=== PATIENT | male | born 1950 ===

== ENCOUNTER 2019-12-24 09:47 | Inpatient (IN) | payer MEDICARE, BC ==
[2019-12-24] VITALS (8 sets, daily range): BP systolic 140–171; BP diastolic 63–84; BMI 35.4
[~2019-12-24] VITALS: Ht 188 cm; Wt 124.7 kg
[2019-12-24 11:00] LABS: BASOPHILS 0 % (0-2); EOSINOPHILS 0.2 % (0-7); HEMATOCRIT 38.1 % (42.0-54.0); HEMOGLOBIN 12.2 g/dL (13.5-17.5); IMMATURE GRANULOCYTES 0.4 % (0-5); LYMPHOCYTES 8.3 % (15-50); MCV 87.6 fL (80.0-100.0); MEAN PLATELET VOLUME 8.4 fL (7.4-10.4); MONOCYTES 7.3 % (2-11); NEUTROPHILS 83.8 % (40-80); PLATELET COUNT 125 10x3/uL (130-400); RBC 4.35 10x6/uL (4.20-6.10); RDW 15.4 % (11.5-14.5)
[2019-12-24 11:19] LABS: APTT 37.9 SECONDS (22.8-39.4); INR 1.05 (0.85-1.17); PROTIME 13.6 SECONDS (11.6-15.0)
[2019-12-24 11:28] LABS: CALC OSMOLALITY 285 mosm/kg (275-300); CALCIUM 8.5 mg/dL (8.5-10.1); CARBON DIOXIDE 25.8 mmol/L (21.0-32.0); CHLORIDE - SERUM 105 mmol/L (98-107); CREATININE - SERUM 1.2 mg/dL (0.6-1.3); GLUCOSE 124 mg/dL (74-106); POTASSIUM - SERUM 3.9 mmol/L (3.5-5.1); SODIUM 141 mmol/L (136-145); UREA NITROGEN 24 mg/dL (7-18); eGFR NON AFRICAN AMERICAN 63 mL/min (90-120)
[2019-12-24 11:48] LABS: ALBUMIN 2.9 g/dL (3.4-5.0); ALKALINE PHOSPHATASE 67 U/L (30-120); ALT (SGPT) 19 U/L (10-68); BILIRUBIN - TOTAL 0.68 mg/dL (0.2-1.3); CREATINE KINASE 1307 UL (21-232); PROTEIN - SERUM 6.2 g/dL (6.4-8.2)
[2019-12-24 11:49] LABS: TROPONIN-I 0.061 ng/mL (0.000-0.060)
[2019-12-24 12:55] LABS: C-REACTIVE PROTEIN 16.9 mg/dL (0.0-0.9)
[2019-12-24 13:34] LABS: ERYTHROCYTE SEDIMENTATION RATE 54 mm/hr (0-20)
[2019-12-24] MEDS ORDERED: SINGULAIR10 MG PO (15:17)
[2019-12-24] MEDS ORDERED: NOVOLIN 70/30 110 ML (15:17)
[2019-12-24] MEDS ORDERED: CARBIDOPA-LEVO1 EAC2 PO (15:19)
[2019-12-24] MEDS ORDERED: SINEMET 25-1001 EAC1 PO (15:19)
[2019-12-24] MEDS ORDERED: NORMODYNE / TR300 MG PO (15:20)
[2019-12-24] MEDS ORDERED: GLUCOPHAGE500 MG PO (15:20)
[2019-12-24] MEDS ORDERED: ZYRTEC10 MG PO (15:20)
[2019-12-24] MEDS ORDERED: LISINOPRIL10 MG PO (15:21)
[2019-12-24] MEDS ORDERED: METOPROLOL TART50 MG PO (15:21)
[2019-12-24] MEDS ORDERED: HYDRALAZINE HCL50 MG PO (15:21)
[2019-12-24] MEDS ORDERED: XANAX0.5 MG PO (15:22)
[2019-12-24] MEDS ORDERED: ZOLOFT100 MG PO (15:22)
[2019-12-24] MEDS ORDERED: ZESTRIL10 MG PO (15:23)
[2019-12-24] MEDS ORDERED: LIPITOR40 MG PO (15:23)
[2019-12-24 17:27] LABS: CKMB 5.8 U/L (0.0-3.6)
[2019-12-24 17:28] LABS: CREATINE KINASE 1424 UL (21-232)
[2019-12-24 17:29] LABS: TROPONIN-I 0.072 ng/mL (0.000-0.060)
[2019-12-24 18:40] LABS: BILIRUBIN NEGATIVE (NEGATIVE); KETONE LARGE mg/dL (NEGATIVE); NITRITE NEGATIVE (NEGATIVE); UROBILINOGEN NORMAL mg/dL (< 2)
[2019-12-24 18:41] LABS: BACTERIA MODERATE HPF (NONE SEEN); EPITHELIAL CELLS 0-5 /hpf (0-5); WHITE CELLS - URINE OCC HPF (0-1)
[2019-12-24] MEDS ORDERED: VIBRAMYCIN 100100 MG PO (20:48)
--- NOTE | 2019-12-24 21:37 | NUR ---
CALL FROM HOUSE SUPERVISORS ON DUTY SON/ELISSA. THEY HAVE BEEN EXTENSIVELY SPEAKING TO THE FAMILY OF 2138 WITH THE FAMILY NOW WANTING PATIENT AND HIS , WHO IS A PATIENT IN ER HOLD, BOTH MOVED TO [facility] NOW. ADMINISTRATION HAS SPOKEN TO FAMILY REGARDING [facility] MUST GIVE APPROVAL. CASEMANYVONNE WILL BE FOLLOWING UP IN AM. REQUEST FOR MD TO BE UPDATED ON SITUATION CALL TO ALMA TANNER, REPEATED ABOVE. SHE STATES SHE WILL HAVE DR WEST/CHUN RETURN CALL FOR INFORMATION. RETURN CALL FROM DR WEST. REPORTED ABOVE AND THAT ADMINISTRATION HAS BEEN ACTIVELY WORKING WITH THE FAMILY ON THEIR CONCERNS/ISSUES/REQUESTS. SHE IS NOW AWARE OF FAMILY REQUEST. WILL CONTINUE TO FOLLOW CURRENT PLAN OF CARE FOR PATIENT.
[2019-12-24 22:58] LABS: CKMB 5.6 U/L (0.0-3.6); CREATINE KINASE 1316 UL (21-232); TROPONIN-I 0.063 ng/mL (0.000-0.060)
[2019-12-25] MEDS ORDERED: MAG-OX 400 MG400 MG PO (00:16)
[2019-12-25] MEDS ORDERED: PEPCID AC20 MG PO (00:17)
[2019-12-25] MEDS ORDERED: TRIAMTERENE-HC1 EAC6 PO (00:18)
[2019-12-25 00:50] VITALS: BP 125/80
[2019-12-25 04:36] VITALS: BP 144/69
--- NOTE | 2019-12-25 06:08 | NUR ---
PT RESTING IN BED, DENIES CHEST PAIN/DISCOMFORT. NO NEEDS EXPRESSED. NO S/S OF DISTRESS OBSERVED. CALL LIGHT IN REACH. WILL CPOC.
[2019-12-25 06:38] LABS: BASOPHILS 0 % (0-2); EOSINOPHILS 0.2 % (0-7); HEMATOCRIT 37.9 % (42.0-54.0); HEMOGLOBIN 12.3 g/dL (13.5-17.5); IMMATURE GRANULOCYTES 0.2 % (0-5); LYMPHOCYTES 9.8 % (15-50); MCH 28.1 pg (26.0-34.0); MCHC 32.5 g/dL (31.0-37.0); MCV 86.7 fL (80.0-100.0); MEAN PLATELET VOLUME 8.4 fL (7.4-10.4); MONOCYTES 5.4 % (2-11); NEUTROPHILS 84.4 % (40-80); PLATELET COUNT 138 10x3/uL (130-400); RBC 4.37 10x6/uL (4.20-6.10); RDW 15.4 % (11.5-14.5); WBC 5.5 10x3/uL (4.8-10.8)
[2019-12-25 06:57] LABS: CALC OSMOLALITY 275 mosm/kg (275-300); CALCIUM 8.4 mg/dL (8.5-10.1); CARBON DIOXIDE 26.8 mmol/L (21.0-32.0); CHLORIDE - SERUM 104 mmol/L (98-107); CKMB 5.8 U/L (0.0-3.6); CREATININE - SERUM 1.2 mg/dL (0.6-1.3); GLUCOSE 141 mg/dL (74-106); POTASSIUM - SERUM 3.7 mmol/L (3.5-5.1); SODIUM 135 mmol/L (136-145); TROPONIN-I 0.042 ng/mL (0.000-0.060); UREA NITROGEN 25 mg/dL (7-18); eGFR NON AFRICAN AMERICAN 63 mL/min (90-120)
[2019-12-25 06:58] LABS: CREATINE KINASE 1043 UL (21-232)
--- NOTE | 2019-12-25 07:20 | NUR ---
RECIEVE REPORT. RESTING IN BED WITH EYES CLOSED. NO SIGNS OF DISTRESS. CONTINUE PLAN OF CARE AND SAFETY PRECAUTIONS.
[2019-12-25 09:03] VITALS: BP 167/88
[2019-12-25 10:52] VITALS: BP 105/69
--- NOTE | 2019-12-25 15:51 | MORECARE ---
CASE MANAGEMENT DISCHARGE SUMMARY PATIENT: DOMINIC PERALTA UNIT: [id number] ADM DATE: 12/24/19 AGE: 69 : 48 SEX: M ROOM/BED: D.2139 AUTHOR: AMEYA LINDSEY PHYSICIAN: REFERRING PHYSICIAN: LISSETTE MCCOLLUM MD DATE OF SERVICE: 12/25/19 Discharge Plan Patient Name: DOMINIC PERALTA [facility] [facility] 1950 Planned Disposition: Anticipated Discharge Date: Discharge Date: Expected LOS: Initial Reviewer: [email or web address] Initial Review Date: 12/24/2019 Generated: 12/25/19 4:50 pm Patient Name: DOMINIC PERALTA Page 04257 at 1551 All edits/amendments must be made on the electronic document DICTATION DATE: 12/25/19 155 CARD CUTTER HELPER: RODNEY 12/25/19 155 RPT#: [id number] DC DATE: STATUS: ADM IN [facility] [address] [place] [address] END OF REPORT
--- NOTE | 2019-12-25 18:00 | NUR ---
ALERT AND ORIENTED X4. SITTING UP IN BED WATCHING TV. NO CHANGE. DENIES ANY NEEDS. CONTINUE PLAN OF CARE AND SAFETY PRECAUTIONS.
--- NOTE | 2019-12-25 20:30 | NUR ---
PT IN BED, AAO X 3, RESP EVEN AND UNLABORED, NO DISTRESS NOTED, CL IN REACH,SR UP X 2.
[2019-12-25 21:17] VITALS: BP 175/80
[2019-12-26 03:47] VITALS: BP 183/67
[2019-12-26 05:32] LABS: BASOPHILS 0 % (0-2); EOSINOPHILS 0 % (0-7); HEMATOCRIT 37.1 % (42.0-54.0); HEMOGLOBIN 11.9 g/dL (13.5-17.5); IMMATURE GRANULOCYTES 0.3 % (0-5); LYMPHOCYTES 6.4 % (15-50); MCH 27.9 pg (26.0-34.0); MCHC 32.1 g/dL (31.0-37.0); MCV 86.9 fL (80.0-100.0); MEAN PLATELET VOLUME 8.5 fL (7.4-10.4); MONOCYTES 6.1 % (2-11); NEUTROPHILS 87.2 % (40-80); PLATELET COUNT 154 10x3/uL (130-400); RBC 4.27 10x6/uL (4.20-6.10); RDW 15.3 % (11.5-14.5); WBC 6.4 10x3/uL (4.8-10.8)
[2019-12-26 06:02] LABS: ALBUMIN 2.5 g/dL (3.4-5.0); ANION GAP 11.1 mmol/L (8-16); BILIRUBIN - TOTAL 0.52 mg/dL (0.2-1.3); CALCIUM 8.2 mg/dL (8.5-10.1); CARBON DIOXIDE 25.7 mmol/L (21.0-32.0); CREATININE - SERUM 1.1 mg/dL (0.6-1.3); POTASSIUM - SERUM 3.8 mmol/L (3.5-5.1)
--- NOTE | 2019-12-26 11:21 | NUR ---
PT AWAKE AND ORIENTED, REQUESTED TO GET UP TO THE BEDSIDE COMMODE AND SHOWER. UNABLE TO MEET REQUEST D/T PTS SIZE/WEAKNESS/ AND GENERAL INABILITY TO ASSIST WITH HIS OWN TRANSFER. SAFTEY CONCERNS FOR BOTH PT AND STAFF ADVISE AGAISNT THIS. PT IS DISAPOINTED BUT VERBALIZES HIS COMPLIENCE AND AGREEMENT AT THIS TIME. ONE BM, USING BED SANCHEZ. NO COMPLAINTS OR CONCERNS AT THIS TIME. WILL CNT. TO MONITOR. CL INR EACH, SRX2.
[2019-12-26 13:16] VITALS: BP 151/77
--- NOTE | 2019-12-26 18:34 | NUR ---
ADMINISTERED FULL BEDBATH. PT CLEAN AND DRY, CONDOM CATH AND BAG REPLACED. CL IN REACH, SRX2, HAND DELIVERED FAMLYS GIFT BAGS TO PT.
[2019-12-26 20:00] VITALS: BP 178/73
--- NOTE | 2019-12-26 20:16 | MORECARE ---
CASE MANAGEMENT DISCHARGE SUMMARY PATIENT: DOMINIC PERALTA UNIT: [id number] ADM DATE: 12/24/19 AGE: 69 : 48 SEX: M ROOM/BED: D.2139 AUTHOR: AMEYA LINDSEY PHYSICIAN: REFERRING PHYSICIAN: LISSETTE MCCOLLUM MD DATE OF SERVICE: 12/26/19 Discharge Plan Patient Name: DOMINIC PERALTA [facility] [facility] 1950 Planned Disposition: Anticipated Discharge Date: Discharge Date: Expected LOS: Initial Reviewer: [email or web address] Initial Review Date: 12/24/2019 Generated: 12/26/19 9:16 pm External Providers External Provider: [facility] Next Contact Date: Service Request Date: Service Type: Resolution: Reviewer: Comments: Last DP export: 12/25/19 2:51 p Patient Name: DOMINIC PERALTA Page 78286 at 2016 All edits/amendments must be made on the electronic document DICTATION DATE: 12/26/192015 OPERATOR HELPER: RODNEY 12/26/19 2016 RPT#: [id number] DC DATE: STATUS: ADM IN [facility] [address] [place] [address] END OF REPORT
--- NOTE | 2019-12-26 20:23 | MORECARE ---
CASE MANAGEMENT DISCHARGE SUMMARY PATIENT: DOMINIC PERALTA UNIT: [id number] ADM DATE: 12/24/19 AGE: 69 : 48 SEX: M ROOM/BED: D.2139 AUTHOR: AMEYA LINDSEY PHYSICIAN: REFERRING PHYSICIAN: LISSETTE MCCOLLUM MD DATE OF SERVICE: 12/26/19 Discharge Plan Patient Name: DOMINIC PERALTA [facility] [facility] 1950 Planned Disposition: Anticipated Discharge Date: Discharge Date: Expected LOS: Initial Reviewer: [email or web address] Initial Review Date: 12/24/2019 Generated: 12/26/19 9:22 pm Last DP export: 12/26/19 7:16 p Patient Name: DOMINIC PERALTA Page 08119 at 2022 All edits/amendments must be made on the electronic document DICTATION DATE: 12/26/192021 SUPERVISOR SHUTTLE VENEERING: RODNEY 12/26/192021 RPT#: [id number] DC DATE: STATUS: ADM IN [facility] [address] [place] [address] END OF REPORT
--- NOTE | 2019-12-26 20:29 | MORECARE ---
CASE MANAGEMENT DISCHARGE SUMMARY PATIENT: DOMINIC PERALTA UNIT: [id number] ADM DATE: 12/24/19 AGE: 69 : 48 SEX: M ROOM/BED: D.2137 AUTHOR: AMEYA LINDSEY PHYSICIAN: REFERRING PHYSICIAN: LISSETTE MCCOLLUM MD DATE OF SERVICE: 12/26/19 Discharge Plan Patient Name: DOMINIC PERALTA Facility: [facility]:[place] : 1950 Planned Disposition: Anticipated Discharge Date: Discharge Date: Expected LOS: Initial Reviewer: [email or web address] Initial Review Date: 12/24/2019 Generated: 12/26/19 9:29 pm Comments DCP- Discharge Planning Updated by [email or web address]: Luisa Iqbal on 12/26/19 7:[address] LATE ENTRY. CONVERSATION OCCURED 12/25/19 CM RECIEVED A CALL FROM PT DAUGHTER KETAN ([phone]) WHO DEMANDS HER MOTHER AND FATHER BE SENT TO [facility] FOR A HIGHER LEVEL OF CARE. SHE STATES THEY ARE A LEVEL OE TREATMENT CENTER AND THEY HAVE ACCESS TO [facility] IF HER FAMILY REQUIRES IT. CM EDUCATED KETAN ON WHAT CONSTITUTES A HIGHER LEVEL OF CARE. SHE STATES SHE HAS DR AGARWAL WHO WILL ACCEPT HER AND WANTS THE AMBULANCE RIDE COVERED BY INSURANCE SINCE IT IS A HIGHER LEVEL OF CARE. CM REINFORCED THAT IT IS A LATERAL TRANSFER. THE SERVICES PROVIDED TO HER PARENTS ARE THE SAME IT WOULD BE AT [facility], AND INSURANCE WILL NOT PAY FOR TRANSPORT. 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 SHE STATES SHE IS THEIR ONLY ADVOCATE IS TERRIFIED FOR THEIR LIVES. ELIZABETH PROVIDED INSTRUCTION TO WHAT [facility] IS DOING CLINICALLY FOR HER FAMILY. CM ALLOWED KETAN TO VENT HER CONCERNS, WHILE PROVIDING EMOTIONAL SUPPORT. KETAN VOICED UNDERSTANDING AND WAS THANKFUL FOR THE INFORMATION PROVIDED. SHE REQUESTS THAT THE CALL HER FOR UPDATES. ELIZABETH SPOKE WITH THE NURSE PROVIDING CARE FOR THE PATIENT AND RELAYED THE REQUEST. THE NURSES STATES THAT DR MEJIA WILL CALL AFTER HE ROUNDS ON THE PATIENT TODAY. CM TO CONTINUE ASSISTING NEEDED WITH DC PLANS/NEEDS LUISA IQBAL Last DP export: 12/26/19 7:23 p Patient Name: DOMINIC PERALTA Page 16799 at 2028 All edits/amendments must be made on the electronic document DICTATION DATE: 12/26/192028 LEAN MANUFACTURING SPECIALIST: RODNEY 12/26/192028 RPT#: [id number] DC DATE: STATUS: ADM IN [facility] [address] [place] [address] END OF REPORT
--- NOTE | 2019-12-26 20:36 | MORECARE ---
CASE MANAGEMENT DISCHARGE SUMMARY PATIENT: DOMINIC PERALTA UNIT: [id number] ADM DATE: 12/24/19 AGE: 69 : 48 SEX: M ROOM/BED: D.8969 AUTHOR: CÉSARDOC PHYSICIAN: REFERRING PHYSICIAN: LISSETTE MCCOLLUM MD DATE OF SERVICE: 12/26/19 Discharge Plan Patient Name: DOMINIC PERALTA [facility] [facility] 1950 Planned Disposition: Anticipated Discharge Date: Discharge Date: Expected LOS: Initial Reviewer: [email or web address] Initial Review Date: 12/24/2019 Generated: 12/26/19 9:35 pm Comments DCP- Discharge Planning Updated by [email or web address]: Luisa Schaffer on 12/26/19 7:[address] Patient Name: DOMINIC PERALTA Admission Status: ER Accout number: [id number] Admission Date: 12-24-2019 : 1950 Admission Diagnosis:COVID-19 Attending: LISSETTE MCCOLLUM Current LOS: 2 Anticipated DC Date: Planned Disposition: Primary Insurance: MEDICARE A & B Discharge Planning Comments: CM called pt dtr Renee at [phone] about dc planning. CM educated patient on the CM role and verbal consent given by patient to complete assessment. CM verified patient's address, phone number, and emergency contact phone numbers. Patient lives at home with his in a basement apartment at their sons house. Renee voiced concerns over her father's Parkinson's disease and the increased weakness he has. States her and her siblings may not be able to care for him upon dc. Renee mad a 3 way call with CM and her siblings so that each family member can speak about concerns. CM spoke to family about SNF, HH, PT, and private CG. Each states that their parents do not have enough money to afford private duty care. And they all need to work and are unable to provide 24 hour care. CM provided details of finding a SNF with [facility]. They stated they will think about a SNF and return a call to . Later this afternoon CM received a call from Renee stating the family is in agreement for SNF. Renee stated she called [facility] who will look at the clinical information. CM faxed clinicals to [facility] as requested. CM will continue to follow and will assist as needed with dc plans/needs. Protection Analyst: Luisa Schaffer DCP- Discharge Planning Updated by [email or web address]: Luisa Schaffer on 12/26/19 7:[address] LATE ENTRY. CONVERSATION OCCURED 12/25/19 CM RECIEVED A CALL FROM PT DAUGHTER RENEE ([phone]) WHO DEMANDS HER MOTHER AND FATHER BE SENT TO [facility] FOR A HIGHER LEVEL OF CARE. SHE STATES THEY ARE A LEVEL OE TREATMENT CENTER AND THEY HAVE ACCESS TO [facility] IF HER FAMILY REQUIRES IT. CM EDUCATED RENEE ON WHAT CONSTITUTES A HIGHER LEVEL OF CARE. SHE STATES SHE HAS DR AGARWAL WHO WILL ACCEPT HER AND WANTS THE AMBULANCE RIDE COVERED BY INSURANCE SINCE IT IS A HIGHER LEVEL OF CARE. CM REINFORCED THAT IT IS A LATERAL TRANSFER. THE SERVICES PROVIDED TO HER PARENTS ARE THE SAME IT WOULD BE AT [facility], AND INSURANCE WILL NOT PAY FOR TRANSPORT. 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 SHE STATES SHE IS THEIR ONLY ADVOCATE IS TERRIFIED FOR THEIR LIVES. CM PROVIDED INSTRUCTION TO WHAT [facility] IS DOING CLINICALLY FOR HER FAMILY. CM ALLOWED RENEE TO VENT HER CONCERNS, WHILE PROVIDING EMOTIONAL SUPPORT. RENEE VOICED UNDERSTANDING AND WAS THANKFUL FOR THE INFORMATION PROVIDED. SHE REQUESTS THAT THE DR CALL HER FOR UPDATES. CM SPOKE WITH THE NURSE PROVIDING CARE FOR THE PATIENT AND RELAYED THE REQUEST. THE NURSES STATES THAT DR MEJIA WILL CALL AFTER HE ROUNDS ON THE PATIENT TODAY. CM TO CONTINUE ASSISTING NEEDED WITH DC PLANS/NEEDS LUISA RASHEED Last DP export: 12/26/19 7:29 p Patient Name: DOMINIC PERALTA Page 60192 at 2036 All edits/amendments must be made on the electronic document DICTATION DATE: 12/26/192034 MEDICAL OFFICE REP: RODNEY 12/26/192034 RPT#: [id number] DC DATE: STATUS: ADM IN [facility] [address] [place] [address] END OF REPORT
[2019-12-27] VITALS: BP 152/66
[2019-12-27 04:00] VITALS: BP 116/77
[2019-12-27 06:13] LABS: BASOPHILS 0 % (0-2); EOSINOPHILS 0.2 % (0-7); HEMATOCRIT 34.8 % (42.0-54.0); HEMOGLOBIN 10.9 g/dL (13.5-17.5); IMMATURE GRANULOCYTES 0.6 % (0-5); LYMPHOCYTES 8.2 % (15-50); MCH 27.5 pg (26.0-34.0); MCHC 31.3 g/dL (31.0-37.0); MCV 87.7 fL (80.0-100.0); MEAN PLATELET VOLUME 8.3 fL (7.4-10.4); MONOCYTES 6.6 % (2-11); NEUTROPHILS 84.4 % (40-80); PLATELET COUNT 164 10x3/uL (130-400); RBC 3.97 10x6/uL (4.20-6.10); RDW 15.4 % (11.5-14.5); WBC 4.9 10x3/uL (4.8-10.8)
[2019-12-27 06:50] LABS: ALBUMIN 2.2 g/dL (3.4-5.0); ALKALINE PHOSPHATASE 69 U/L (30-120); BILIRUBIN - TOTAL 0.52 mg/dL (0.2-1.3); CALC OSMOLALITY 281 mosm/kg (275-300); CALCIUM 8.1 mg/dL (8.5-10.1); CARBON DIOXIDE 23.4 mmol/L (21.0-32.0); CHLORIDE - SERUM 104 mmol/L (98-107); GLUCOSE 131 mg/dL (74-106); POTASSIUM - SERUM 3.9 mmol/L (3.5-5.1); PROTEIN - SERUM 5.9 g/dL (6.4-8.2); SODIUM 138 mmol/L (136-145); UREA NITROGEN 23 mg/dL (7-18); eGFR NON AFRICAN AMERICAN 78 mL/min (90-120)
[2019-12-27 06:51] LABS: ALT (SGPT) 8 U/L (10-68)
--- NOTE | 2019-12-27 07:26 | NUR ---
LYING IN BED AWAKE, ALERT, DIET SPRITE W/CUP OF ICE BROUGHT TO ROOM/REQUEST. NO OTHER NEEDS VOICED AT THIS TIME. NO DISTRESS NOTED.
[2019-12-27 08:26] VITALS: BP 161/80
[2019-12-27 11:16] VITALS: BP 153/73
[2019-12-27 16:37] VITALS: BP 111/78
--- NOTE | 2019-12-27 18:25 | MORECARE ---
CASE MANAGEMENT DISCHARGE SUMMARY PATIENT: DOMINIC PERALTA UNIT: [id number] ADM DATE: 12/24/19 AGE: 69 : 48 SEX: M ROOM/BED: D.3128 AUTHOR: CÉSARDOC PHYSICIAN: REFERRING PHYSICIAN: LISSETTE MCCOLLUM MD DATE OF SERVICE: 12/27/19 Discharge Plan Patient Name: DOMINIC PERALTA Facility: [facility]:[place] : 1950 Planned Disposition: Anticipated Discharge Date: Discharge Date: Expected LOS: Initial Reviewer: [email or web address] Initial Review Date: 12/24/2019 Generated: 12/27/19 7:24 pm DCP- Discharge Planning Updated by [email or web address]: Luisa Iqbal on 12/27/19 5:[address] Cm spoke with Regina from [facility] who states they are looking at the clinicals. They will get back with CM with determination. Luisa Iqbal DCP- Discharge Planning Updated by [email or web address]: Luisa Iqbal on 12/26/19 7:[address] Patient Name: DOMINIC PERALTA Admission Status: ER Accout number: [id number] Admission Date: 12-24-2019 : 1950 Admission Diagnosis:COVID-19 Attending: LISSETTE MCCOLLUM Current LOS: 2 Anticipated DC Date: Planned Disposition: Primary Insurance: MEDICARE A & B Discharge Planning Comments: CM called pt dtr Renee at [phone] about dc planning. CM educated patient on the CM role and verbal consent given by patient to complete assessment. CM verified patient's address, phone number, and emergency contact phone numbers. Patient lives at home with his in a basement apartment at their sons house. Renee voiced concerns over her father's Parkinson's disease and the increased weakness he has. States her and her siblings may not be able to care for him upon dc. Renee mad a 3 way call with CM and her siblings so that each family member can speak about concerns. CM spoke to family about SNF, HH, PT, and private CG. Each states that their parents do not have enough money to afford private duty care. And they all need to work and are unable to provide 24 hour care. CM provided details of finding a SNF with [facility]. They stated they will think about a SNF and return a call to CM. Later this afternoon CM received a call from Renee stating the family is in agreement for SNF. Renee stated she called [facility] who will look at the clinical information. CM faxed clinicals to [facility] as requested. CM will continue to follow and will assist as needed with dc plans/needs. Data Power Consultant: Luisa Iqbal DCP- Discharge Planning Updated by [email or web address]: Luisa Iqbal on 12/26/19 7:[address] LATE ENTRY. CONVERSATION OCCURED 12/25/19 CM RECIEVED A CALL FROM PT DAUGHTER RENEE ([phone]) WHO DEMANDS HER MOTHER AND FATHER BE SENT TO [facility] FOR A HIGHER LEVEL OF CARE. SHE STATES THEY ARE A LEVEL OE TREATMENT CENTER AND THEY HAVE ACCESS TO [facility] IF HER FAMILY REQUIRES IT. CM EDUCATED RENEE ON WHAT CONSTITUTES A HIGHER LEVEL OF CARE. SHE STATES SHE HAS DR AGARWAL WHO WILL ACCEPT HER AND WANTS THE AMBULANCE RIDE COVERED BY INSURANCE SINCE IT IS A HIGHER LEVEL OF CARE. CM REINFORCED THAT IT IS A LATERAL TRANSFER. THE SERVICES PROVIDED TO HER PARENTS ARE THE SAME IT WOULD BE AT [facility], AND INSURANCE WILL NOT PAY FOR TRANSPORT. 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 SHE STATES SHE IS THEIR ONLY ADVOCATE IS TERRIFIED FOR THEIR LIVES. CM PROVIDED INSTRUCTION TO WHAT [facility] IS DOING CLINICALLY FOR HER FAMILY. CM ALLOWED RENEE TO VENT HER CONCERNS, WHILE PROVIDING EMOTIONAL SUPPORT. RENEE VOICED UNDERSTANDING AND WAS THANKFUL FOR THE INFORMATION PROVIDED. SHE REQUESTS THAT THE DR CALL HER FOR UPDATES. ELIZABETH SPOKE WITH THE NURSE PROVIDING CARE FOR THE PATIENT AND RELAYED THE REQUEST. THE NURSES STATES THAT DR MEJIA WILL CALL AFTER HE ROUNDS ON THE PATIENT TODAY. CM TO CONTINUE ASSISTING NEEDED WITH DC PLANS/NEEDS LUISA IQBAL Last DP export: 12/26/19 7:36 p Patient Name: DOMINIC PERALTA Page 19366 at 3620 All edits/amendments must be made on the electronic document DICTATION DATE: 12/27/191823 CULINARY INTERN: RODNEY 12/27/191823 RPT#: [id number] DC DATE: STATUS: ADM IN [facility] [address] [place] [address] END OF REPORT
[2019-12-27 20:00] VITALS: BP 160/79
[2019-12-28] VITALS: BP 149/78
[2019-12-28 04:00] VITALS: BP 154/77
[2019-12-28 06:20] LABS: BASOPHILS 0.2 % (0-2); EOSINOPHILS 0.2 % (0-7); HEMATOCRIT 33.9 % (42.0-54.0); HEMOGLOBIN 10.8 g/dL (13.5-17.5); IMMATURE GRANULOCYTES 0.4 % (0-5); LYMPHOCYTES 6.6 % (15-50); MCH 27.4 pg (26.0-34.0); MCHC 31.9 g/dL (31.0-37.0); MEAN PLATELET VOLUME 8.5 fL (7.4-10.4); MONOCYTES 6.4 % (2-11); NEUTROPHILS 86.2 % (40-80); PLATELET COUNT 170 10x3/uL (130-400); RBC 3.94 10x6/uL (4.20-6.10)
[2019-12-28 06:44] LABS: ALBUMIN 2.2 g/dL (3.4-5.0); ALKALINE PHOSPHATASE 79 U/L (30-120); ALT (SGPT) 8 U/L (10-68); CALC OSMOLALITY 288 mosm/kg (275-300); CALCIUM 8.5 mg/dL (8.5-10.1); CARBON DIOXIDE 26.1 mmol/L (21.0-32.0); CHLORIDE - SERUM 106 mmol/L (98-107); CREATININE - SERUM 0.8 mg/dL (0.6-1.3); GLUCOSE 138 mg/dL (74-106); POTASSIUM - SERUM 3.7 mmol/L (3.5-5.1); PROTEIN - SERUM 5.8 g/dL (6.4-8.2); SODIUM 142 mmol/L (136-145); UREA NITROGEN 24 mg/dL (7-18); eGFR NON AFRICAN AMERICAN > 90 mL/min (90-120)
--- NOTE | 2019-12-28 07:27 | NUR ---
LYING IN BED AWAKE, ALERT, ORIENTED, DROWSY--DENIES ANY NEEDS AT THIS TIME.
[2019-12-28 09:36] VITALS: BP 187/70
[2019-12-28 11:33] VITALS: BP 149/72
--- NOTE | 2019-12-28 11:58 | NUR ---
IV TO LT FA INFILTRATED--REMOVED 20GA IV--IV CATH INTACT--DRESS APPLIED NEW 20 GA IV STARTED TO LT HAND X'S 3 STICKS-- NEW CONDOM CATH APPLIED--DRY PADS PLACED UNDER PT. ALL PROCEDURES TOLERATED WELL. DENIES ANY FURTHER NEEDS.
--- NOTE | 2019-12-28 13:54 | NUR ---
DR BINGHAM IN FOR VISIT APPROX 1305 TODAY--HE CONTACTED PT'S DTR KETAN AND SPOKE W/HER ABOUT THE PT'S CARE.
[2019-12-28 14:39] VITALS: Ht 188 cm; Wt 124.7 kg
--- NOTE | 2019-12-28 15:05 | MORECARE ---
CASE MANAGEMENT DISCHARGE SUMMARY PATIENT: DOMINIC PERALTA UNIT: [id number] ADM DATE: 12/24/19 AGE: 69 : 48 SEX: M ROOM/BED: D.2135 AUTHOR: CÉSAR,DOC PHYSICIAN: REFERRING PHYSICIAN: LISSETTE MCCOLLUM MD DATE OF SERVICE: 12/28/19 Discharge Plan Patient Name: DOMINIC PERALTA Facility: [facility]:[place] : 1950 Planned Disposition: Anticipated Discharge Date: Discharge Date: Expected LOS: Initial Reviewer: [email or web address] Initial Review Date: 12/24/2019 Generated: 12/28/19 4:04 pm Comments DCP- Discharge Planning Updated by [email or web address]: Aroldo Strange on 12/28/19 1:[address] Patient Name: DOMINIC PERALTA Encounter No: [id number] : 1950 Primary Insurance: MEDICARE A & B Anticipated DC Date: Planned Disposition: External Planned Provider: : DCP follow-up note: Spoke with Regina Perry who coordinates with [facility]. Regina states that the patient should be able to transfer to [facility] and has reviewed previous clinicals sent. Will traditionally fax latest progress notes and medication list per request via. Will continue to follow. Aroldo Strange DCP- Discharge Planning Updated by [email or web address]: Luisa Iqbal on 12/27/19 5:[address] Cm spoke with Regina from [facility] who states they are looking at the clinicals. They will get back with CM with determination. Luisa Iqbal DCP- Discharge Planning Updated by [email or web address]: Luisa Iqbal on 12/26/19 7:[address] Patient Name: DOMINIC PERALTA Admission Status: ER Accout number: [id number] Admission Date: 12-24-2019 : 1950 Admission Diagnosis:COVID-19 Attending: LISSETTE MCCOLLUM Current LOS: 2 Anticipated DC Date: Planned Disposition: Primary Insurance: MEDICARE A & B Discharge Planning Comments: CM called pt dtr Renee at [phone] about dc planning. CM educated patient on the CM role and verbal consent given by patient to complete assessment. CM verified patient's address, phone number, and emergency contact phone numbers. Patient lives at home with his in a basement apartment at their sons house. Renee voiced concerns over her father's Parkinson's disease and the increased weakness he has. States her and her siblings may not be able to care for him upon dc. Renee mad a 3 way call with CM and her siblings so that each family member can speak about concerns. CM spoke to family about SNF, HH, PT, and private CG. Each states that their parents do not have enough money to afford private duty care. And they all need to work and are unable to provide 24 hour care. CM provided details of finding a SNF with [facility]. They stated they will think about a SNF and return a call to . Later this afternoon CM received a call from Renee stating the family is in agreement for SNF. Renee stated she called [facility] who will look at the clinical information. CM faxed clinicals to [facility] as requested. CM will continue to follow and will assist as needed with dc plans/needs. Er Medical Technician: Luisa Iqbal DCP- Discharge Planning Updated by [email or web address]: Luisa Iqbal on 12/26/19 7:[address] LATE ENTRY. CONVERSATION OCCURED 12/25/19 CM RECIEVED A CALL FROM PT DAUGHTER RENEE ([phone]) WHO DEMANDS HER MOTHER AND FATHER BE SENT TO [facility] FOR A HIGHER LEVEL OF CARE. SHE STATES THEY ARE A LEVEL OE TREATMENT CENTER AND THEY HAVE ACCESS TO [facility] IF HER FAMILY REQUIRES IT. ELIZABETH EDUCATED RENEE ON WHAT CONSTITUTES A HIGHER LEVEL OF CARE. SHE STATES SHE HAS DR AGARWAL WHO WILL ACCEPT HER AND WANTS THE AMBULANCE RIDE COVERED BY INSURANCE SINCE IT IS A HIGHER LEVEL OF CARE. CM REINFORCED THAT IT IS A LATERAL TRANSFER. THE SERVICES PROVIDED TO HER PARENTS ARE THE SAME IT WOULD BE AT [facility], AND INSURANCE WILL NOT PAY FOR TRANSPORT. 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 SHE STATES SHE IS THEIR ONLY ADVOCATE IS TERRIFIED FOR THEIR LIVES. CM PROVIDED INSTRUCTION TO WHAT [facility] IS DOING CLINICALLY FOR HER FAMILY. CM ALLOWED RENEE TO VENT HER CONCERNS, WHILE PROVIDING EMOTIONAL SUPPORT. RENEE VOICED UNDERSTANDING AND WAS THANKFUL FOR THE INFORMATION PROVIDED. SHE REQUESTS THAT THE DR CALL HER FOR UPDATES. ELIZABETH SPOKE WITH THE NURSE PROVIDING CARE FOR THE PATIENT AND RELAYED THE REQUEST. THE NURSES STATES THAT DR MEJIA WILL CALL AFTER HE ROUNDS ON THE PATIENT TODAY. CM TO CONTINUE ASSISTING NEEDED WITH DC PLANS/NEEDS LUISA IQBAL Last DP export: 12/27/19 5:25 p Patient Name: DOMINIC PERALTA Page 71031 at 1505 All edits/amendments must be made on the electronic document DICTATION DATE: 12/28/19 150 STOCK HOUSE WORKER: RODNEY 12/28/19 1504 RPT#: [id number] DC DATE: STATUS: ADM IN [facility] [address] [place] [address] END OF REPORT
--- NOTE | 2019-12-28 16:51 | MORECARE ---
CASE MANAGEMENT DISCHARGE SUMMARY PATIENT: DOMINIC PERALTA UNIT: [id number] ADM DATE: 12/24/19 AGE: 69 : 48 SEX: M ROOM/BED: D.2135 AUTHOR: CÉSAR,DOC PHYSICIAN: REFERRING PHYSICIAN: LISSETTE MCCOLLUM MD DATE OF SERVICE: 12/28/19 Discharge Plan Patient Name: DOMINIC PERALTA Facility: [facility]:[place] : 1950 Planned Disposition: Anticipated Discharge Date: Discharge Date: Expected LOS: Initial Reviewer: [email or web address] Initial Review Date: 12/24/2019 Generated: 12/28/19 5:50 pm Comments DCP- Discharge Planning Updated by [id number]: Aroldo Strange on 12/28/19 3:[address] Patient Name: DOMINIC PERALTA Encounter No: [id number] : 1950 Primary Insurance: MEDICARE A & B Anticipated DC Date: Planned Disposition: External Planned Provider: : DCP follow-up note: TC to Regina. Regina states that she received fax and will contact us with placement if possible. Will continue to follow Aroldo Strnage DCP- Discharge Planning Updated by [id number]: Aroldo Strange on 12/28/19 1:[address] Patient Name: DOMINIC PERALTA Encounter No: [id number] : 1950 Primary Insurance: MEDICARE A & B Anticipated DC Date: Planned Disposition: External Planned Provider: : DCP follow-up note: Spoke with Regina Perry who coordinates with [facility]. Regian states that the patient should be able to transfer to [place] and has reviewed previous clinicals sent. Will traditionally fax latest progress notes and medication list per request via. Will continue to follow. Aroldo Strange DCP- Discharge Planning Updated by [id number]: Luisa Schaffer on 12/27/19 5:[address] Cm spoke with Regina from [facility] who states they are looking at the clinicals. They will get back with CM with determination. Luisa Schaffer DCP- Discharge Planning Updated by [id number]: Luisa Schaffer on 12/26/19 7:[address] Patient Name: DOMINIC PERALTA Admission Status: ER Accout number: [id number] Admission Date: 12-24-2019 : 1950 Admission Diagnosis:COVID-19 Attending: LISSETTE MCCOLLUM Current LOS: 2 Anticipated DC Date: Planned Disposition: Primary Insurance: MEDICARE A & B Discharge Planning Comments: CM called pt dtr Renee at [phone] about dc planning. CM educated patient on the CM role and verbal consent given by patient to complete assessment. CM verified patient's address, phone number, and emergency contact phone numbers. Patient lives at home with his in a basement apartment at their sons house. Renee voiced concerns over her father's Parkinson's disease and the increased weakness he has. States her and her siblings may not be able to care for him upon dc. Renee mad a 3 way call with CM and her siblings so that each family member can speak about concerns. CM spoke to family about SNF, HH, PT, and private CG. Each states that their parents do not have enough money to afford private duty care. And they all need to work and are unable to provide 24 hour care. CM provided details of finding a SNF with [facility]. They stated they will think about a SNF and return a call to . Later this afternoon CM received a call from Renee stating the family is in agreement for SNF. Renee stated she called [facility] who will look at the clinical information. CM faxed clinicals to [facility] as requested. CM will continue to follow and will assist as needed with dc plans/needs. Core Cutter: Luisa Schaffer DCP- Discharge Planning Updated by [email or web address]: Luisa Schaffer on 12/26/19 7:[address] LATE ENTRY. CONVERSATION OCCURED 12/25/19 CM RECIEVED A CALL FROM PT DAUGHTER RENEE ([phone]) WHO DEMANDS HER MOTHER AND FATHER BE SENT TO [facility] FOR A HIGHER LEVEL OF CARE. SHE STATES THEY ARE A [facility] C[facility] AND THEY HAVE ACCESS TO [facility] IF HER FAMILY REQUIRES IT. CM EDUCATED RENEE ON WHAT CONSTITUTES A HIGHER LEVEL OF CARE. SHE STATES SHE HAS DR AGARWAL WHO WILL ACCEPT HER AND WANTS THE AMBULANCE RIDE COVERED BY INSURANCE SINCE IT IS A HIGHER LEVEL OF CARE. CM REINFORCED THAT IT IS A LATERAL TRANSFER. THE SERVICES PROVIDED TO HER PARENTS ARE THE SAME IT WOULD BE AT [facility], AND INSURANCE WILL NOT PAY FOR TRANSPORT. 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 SHE STATES SHE IS THEIR ONLY ADVOCATE IS TERRIFIED FOR THEIR LIVES. CM PROVIDED INSTRUCTION TO WHAT [facility] IS DOING CLINICALLY FOR HER FAMILY. CM ALLOWED RENEE TO VENT HER CONCERNS, WHILE PROVIDING EMOTIONAL SUPPORT. RENEE VOICED UNDERSTANDING AND WAS THANKFUL FOR THE INFORMATION PROVIDED. SHE REQUESTS THAT THE DR CALL HER FOR UPDATES. ELIZABETH SPOKE WITH THE NURSE PROVIDING CARE FOR THE PATIENT AND RELAYED THE REQUEST. THE NURSES STATES THAT DR MEJIA WILL CALL AFTER HE ROUNDS ON THE PATIENT TODAY. CM TO CONTINUE ASSISTING NEEDED WITH DC PLANS/NEEDS LUISA BRIANDS Last DP export: 12/28/19 2:04 p Patient Name: DOMINIC PERALTA Page [id number] at 1651 All edits/amendments must be made on the electronic document DICTATION DATE: 12/28/191650 CERTIFIED DRIVER EXAMINER: RODNEY 12/28/191650 RPT#: [id number] DC DATE: STATUS: ADM IN [facility] [address] [place] [address] END OF REPORT
--- NOTE | 2019-12-28 19:30 | NUR ---
PT IN BED, AAO X 2, PT ASSISTED TO BEDSIDE TOILET AT THIS TIME, PT IV RESITED TO LEFT FOREARM WITH 22G X 1 STICK. PT ASSISTED BACK TO BED, NO DISTRESS NOTED, RESP EVEN AND UNLABORED. CL IN REACH, SR UP X 2.
[2019-12-28 20:00] VITALS: BP 172/85
[2019-12-29 04:00] VITALS: BP 163/76
[2019-12-29 04:46] LABS: BASOPHILS 0.2 % (0-2); EOSINOPHILS 0 % (0-7); HEMATOCRIT 35.4 % (42.0-54.0); HEMOGLOBIN 11.3 g/dL (13.5-17.5); IMMATURE GRANULOCYTES 0.6 % (0-5); LYMPHOCYTES 5.8 % (15-50); MCH 27.7 pg (26.0-34.0); MCHC 31.9 g/dL (31.0-37.0); MCV 86.8 fL (80.0-100.0); MEAN PLATELET VOLUME 8.3 fL (7.4-10.4); MONOCYTES 8.6 % (2-11); NEUTROPHILS 84.8 % (40-80); PLATELET COUNT 202 10x3/uL (130-400); RBC 4.08 10x6/uL (4.20-6.10); RDW 15.1 % (11.5-14.5); WBC 5.1 10x3/uL (4.8-10.8)
[2019-12-29 05:08] LABS: ALBUMIN 2.4 g/dL (3.4-5.0); ALKALINE PHOSPHATASE 83 U/L (30-120); BILIRUBIN - TOTAL 0.59 mg/dL (0.2-1.3); CALC OSMOLALITY 288 mosm/kg (275-300); CALCIUM 8.7 mg/dL (8.5-10.1); CARBON DIOXIDE 29.2 mmol/L (21.0-32.0); CHLORIDE - SERUM 106 mmol/L (98-107); GLUCOSE 161 mg/dL (74-106); POTASSIUM - SERUM 3.7 mmol/L (3.5-5.1); PROTEIN - SERUM 6.2 g/dL (6.4-8.2); SODIUM 141 mmol/L (136-145); UREA NITROGEN 27 mg/dL (7-18); eGFR NON AFRICAN AMERICAN 78 mL/min (90-120)
[2019-12-29 05:09] LABS: ALT (SGPT) 18 U/L (10-68)
[2019-12-29 07:16] VITALS: BP 189/99
--- NOTE | 2019-12-29 07:19 | NUR ---
Lying in bed w/eyes closed, Resp even and unlabored /02 in progress/order, no distress noted.
--- NOTE | 2019-12-29 09:00 | MORECARE ---
CASE MANAGEMENT DISCHARGE SUMMARY PATIENT: DOMINIC PERALTA UNIT: [id number] ADM DATE: 12/24/19 AGE: 69 : 48 SEX: M ROOM/BED: D.2139 AUTHOR: CÉSARDOC PHYSICIAN: REFERRING PHYSICIAN: LISSETTE MCCOLLUM MD DATE OF SERVICE: 12/29/19 Discharge Plan Patient Name: DOMINIC PERALTA Facility: [facility]:[place] : 1950 Planned Disposition: Anticipated Discharge Date: Discharge Date: Expected LOS: Initial Reviewer: [email or web address] Initial Review Date: 12/24/2019 Generated: 12/29/19 9:59 am Comments DCP- Discharge Planning Updated by [email or web address]: Luisa Iqbal on 12/29/19 7:[address] Patient Name: DOMINIC PERALTA Encounter No: [id number] : 1950 Primary Insurance: MEDICARE A & B Anticipated DC Date: Planned Disposition: External Planned Provider: : DCP follow-up note: CM was asked to called Pt daughter Jessica at [phone]. Cm called Jessica who was very upset. Jessica began yelling as soon as CM initiated conversation. Jessica states that her father is not being cared for. States since this hospital is not able to provide PT she fears her father will decline at a rapid rate. She demands that CM call [facility] and get him transferred to a higher level of care. CM called warehouse operations manager for update then called [facility] transfer team at [phone] and spoke to Keely CRAFT. ELIZABETH provided clinical representation, and Keely states she will call CM for bed availability. CM will call pt family for updates as they arise. Case management will follow and assist as needed. Luisa Iqbal DCP- Discharge Planning Updated by [id number]: Aroldo Strange on 12/28/19 3:[address] Patient Name: DOMINIC PERALTA Encounter No: [id number] : 1950 Primary Insurance: MEDICARE A & B Anticipated DC Date: Planned Disposition: External Planned Provider: : DCP follow-up note: TC to Regina. Regina states that she received fax and will contact us with placement if possible. Will continue to follow Aroldo Strange DCP- Discharge Planning Updated by [id number]: Aroldo Strange on 12/28/19 1:[address] Patient Name: DOMINIC PERALTA Encounter No: [id number] : 1950 Primary Insurance: MEDICARE A & B Anticipated DC Date: Planned Disposition: External Planned Provider: : DCP follow-up note: Spoke with Regina Perry who coordinates with [facility]. Regina states that the patient should be able to transfer to [place] and has reviewed previous clinicals sent. Will traditionally fax latest progress notes and medication list per request via. Will continue to follow. Aroldo Strange DCP- Discharge Planning Updated by [email or web address]: Luisa Iqbal on 12/27/19 5:[address] Cm spoke with Regina from [facility] who states they are looking at the clinicals. They will get back with CM with determination. Luisa Iqbal DCP- Discharge Planning Updated by [id number]: Luisa Iqbal on 12/26/19 7:[address] Patient Name: DOMINIC PERALTA Admission Status: ER Accout number: [id number] Admission Date: 12-24-2019 : 1950 Admission Diagnosis:COVID-19 Attending: LISSETTE MCCOLLUM Current LOS: 2 Anticipated DC Date: Planned Disposition: Primary Insurance: MEDICARE A & B Discharge Planning Comments: CM called pt dtr Renee at [phone] about dc planning. CM educated patient on the CM role and verbal consent given by patient to complete assessment. CM verified patient's address, phone number, and emergency contact phone numbers. Patient lives at home with his in a basement apartment at their sons house. Renee voiced concerns over her father's Parkinson's disease and the increased weakness he has. States her and her siblings may not be able to care for him upon dc. Renee mad a 3 way call with CM and her siblings so that each family member can speak about concerns. CM spoke to family about SNF, HH, PT, and private CG. Each states that their parents do not have enough money to afford private duty care. And they all need to work and are unable to provide 24 hour care. CM provided details of finding a SNF with Covid. They stated they will think about a SNF and return a call to CM. Later this afternoon CM received a call from Renee stating the family is in agreement for SNF. Renee stated she called [facility] who will look at the clinical information. CM faxed clinicals to [facility] as requested. CM will continue to follow and will assist as needed with dc plans/needs. Director Underwriter Sales: Luisa Iqbal DCP- Discharge Planning Updated by [email or web address]: Luisa Iqbal on 12/26/19 7:[address] LATE ENTRY. CONVERSATION OCCURED 12/25/19 CM RECIEVED A CALL FROM PT DAUGHTER RENEE ([phone]) WHO DEMANDS HER MOTHER AND FATHER BE SENT TO [facility] FOR A HIGHER LEVEL OF CARE. SHE STATES THEY ARE A [facility] AND THEY HAVE [facility] TO [facility] IF HER FAMILY REQUIRES IT. CM EDUCATED RENEE ON WHAT CONSTITUTES A HIGHER LEVEL OF CARE. SHE STATES SHE HAS DR AGARWAL WHO WILL ACCEPT HER AND WANTS THE AMBULANCE RIDE COVERED BY INSURANCE SINCE IT IS A HIGHER LEVEL OF CARE. CM REINFORCED THAT IT IS A LATERAL TRANSFER. THE SERVICES PROVIDED TO HER PARENTS ARE THE SAME IT WOULD BE AT [facility], AND INSURANCE WILL NOT PAY FOR TRANSPORT. 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 SHE STATES SHE IS THEIR ONLY ADVOCATE IS TERRIFIED FOR THEIR LIVES. CM PROVIDED INSTRUCTION TO WHAT [facility] IS DOING CLINICALLY FOR HER FAMILY. CM ALLOWED RENEE TO VENT HER CONCERNS, WHILE PROVIDING EMOTIONAL SUPPORT. RENEE VOICED UNDERSTANDING AND WAS THANKFUL FOR THE INFORMATION PROVIDED. SHE REQUESTS THAT THE DR CALL HER FOR UPDATES. ELIZABETH SPOKE WITH THE NURSE PROVIDING CARE FOR THE PATIENT AND RELAYED THE REQUEST. THE NURSES STATES THAT DR MEJIA WILL CALL AFTER HE ROUNDS ON THE PATIENT TODAY. CM TO CONTINUE ASSISTING NEEDED WITH DC PLANS/NEEDS LUISA IQBAL Last DP export: 12/28/19 3:51 p Patient Name: DOMINIC PERALTA Page 68010 at 0900 All edits/amendments must be made on the electronic document DICTATION DATE: 12/29/19858 TAKE OFF WORKER: RODNEY 12/29/1961 RPT#: [id number] DC DATE: STATUS: ADM IN [facility] [address] [place] [address] END OF REPORT
[2019-12-29 10:51] VITALS: BP 160/82
--- NOTE | 2019-12-29 13:43 | MORECARE ---
CASE MANAGEMENT DISCHARGE SUMMARY PATIENT: DOMINIC PERALTA UNIT: [id number] ADM DATE: 12/24/19 AGE: 69 : 48 SEX: M ROOM/BED: D.2139 AUTHOR: CÉSARDOC PHYSICIAN: REFERRING PHYSICIAN: LISSETTE MCCOLLUM MD DATE OF SERVICE: 12/29/19 Discharge Plan Patient Name: DOMINIC PERALTA Facility: [facility]:[place] : 1950 Planned Disposition: Anticipated Discharge Date: Discharge Date: Expected LOS: Initial Reviewer: [email or web address] Initial Review Date: 12/24/2019 Generated: 12/29/19 2:42 pm Comments DCP- Discharge Planning Updated by [id number]: Luisa Iqbal on 12/29/19 7:[address] Patient Name: DOMINIC PERALTA Encounter No: [id number] : 1950 Primary Insurance: MEDICARE A & B Anticipated DC Date: Planned Disposition: External Planned Provider: : DCP follow-up note: CM was asked to called Pt daughter Jessica at [phone]. Cm called Jessica who was very upset. Jessica began yelling as soon as CM initiated conversation. Jessica states that her father is not being cared for. States since this hospital is not able to provide PT she fears her father will decline at a rapid rate. She demands that CM call [facility] and get him transferred to a higher level of care. CM called warehouse foreman for update then called [facility] transfer team at [phone] and spoke to Keely CRAFT. ELIZABETH provided clinical representation, and Keely states she will call CM for bed availability. CM will call pt family for updates as they arise. Case management will follow and assist as needed. Luisa Iqbal DCP- Discharge Planning Updated by [email or web address]: Aroldo Strange on 12/28/19 3:[address] Patient Name: DOMINIC PERALTA Encounter No: [id number] : 1950 Primary Insurance: MEDICARE A & B Anticipated DC Date: Planned Disposition: External Planned Provider: : DCP follow-up note: TC to Regina. Regina states that she received fax and will contact us with placement if possible. Will continue to follow Aroldo Strange DCP- Discharge Planning Updated by [id number]: Aroldo Strange on 12/28/19 1:[address] Patient Name: DOMINIC PERALTA Encounter No: [id number] : 1950 Primary Insurance: MEDICARE A & B Anticipated DC Date: Planned Disposition: External Planned Provider: : DCP follow-up note: Spoke with Regina Perry who coordinates with [facility]. Regina states that the patient should be able to transfer to [place] and has reviewed previous clinicals sent. Will traditionally fax latest progress notes and medication list per request via. Will continue to follow. Aroldo Strange DCP- Discharge Planning Updated by [id number]: Luisa Iqbal on 12/27/19 5:[address] Cm spoke with Regina from [facility] who states they are looking at the clinicals. They will get back with CM with determination. Luisa Iqbal DCP- Discharge Planning Updated by [email or web address]: Luisa Iqbal on 12/26/19 7:[address] Patient Name: DOMINIC PERALTA Admission Status: ER Accout number: [id number] Admission Date: 12-24-2019 : 1950 Admission Diagnosis:COVID-19 Attending: LISSETTE MCCOLLUM Current LOS: 2 Anticipated DC Date: Planned Disposition: Primary Insurance: MEDICARE A & B Discharge Planning Comments: CM called pt dtr Renee at [phone] about dc planning. CM educated patient on the CM role and verbal consent given by patient to complete assessment. CM verified patient's address, phone number, and emergency contact phone numbers. Patient lives at home with his in a basement apartment at their sons house. Renee voiced concerns over her father's Parkinson's disease and the increased weakness he has. States her and her siblings may not be able to care for him upon dc. Renee mad a 3 way call with CM and her siblings so that each family member can speak about concerns. CM spoke to family about SNF, HH, PT, and private CG. Each states that their parents do not have enough money to afford private duty care. And they all need to work and are unable to provide 24 hour care. CM provided details of finding a SNF with Covid. They stated they will think about a SNF and return a call to CM. Later this afternoon CM received a call from Renee stating the family is in agreement for SNF. Renee stated she called [facility] who will look at the clinical information. CM faxed clinicals to [place] as requested. CM will continue to follow and will assist as needed with dc plans/needs. Real Estate Officer: Luisa Iqbal DCP- Discharge Planning Updated by [id number]: Luisa Iqbal on 12/26/19 7:[address] LATE ENTRY. CONVERSATION OCCURED 12/25/19 CM RECIEVED A CALL FROM PT DAUGHTER RENEE ([phone]) WHO DEMANDS HER MOTHER AND FATHER BE SENT TO [facility] FOR A HIGHER LEVEL OF CARE. SHE STATES THEY ARE A [facility] T[facility]ATMENT CENTER AND THEY HAVE ACCESS TO [facility] IF HER FAMILY REQUIRES IT. CM EDUCATED RENEE ON WHAT CONSTITUTES A HIGHER LEVEL OF CARE. SHE STATES SHE HAS DR AGARWAL WHO WILL ACCEPT HER AND WANTS THE AMBULANCE RIDE COVERED BY INSURANCE SINCE IT IS A HIGHER LEVEL OF CARE. CM REINFORCED THAT IT IS A LATERAL TRANSFER. THE SERVICES PROVIDED TO HER PARENTS ARE THE SAME IT WOULD BE AT [facility], AND INSURANCE WILL NOT PAY FOR TRANSPORT. 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 SHE STATES SHE IS THEIR ONLY ADVOCATE IS TERRIFIED FOR THEIR LIVES. CM PROVIDED INSTRUCTION TO WHAT [facility] IS DOING CLINICALLY FOR HER FAMILY. CM ALLOWED RENEE TO VENT HER CONCERNS, WHILE PROVIDING EMOTIONAL SUPPORT. RENEE VOICED UNDERSTANDING AND WAS THANKFUL FOR THE INFORMATION PROVIDED. SHE REQUESTS THAT THE DR CALL HER FOR UPDATES. ELIZABETH SPOKE WITH THE NURSE PROVIDING CARE FOR THE PATIENT AND RELAYED THE REQUEST. THE NURSES STATES THAT DR MEJIA WILL CALL AFTER HE ROUNDS ON THE PATIENT TODAY. CM TO CONTINUE ASSISTING NEEDED WITH DC PLANS/NEEDS LUISA IQBAL External Providers External Provider: OTHER-OTHER Next Contact Date: Service Request Date: Service Type: Resolution: Reviewer: Comments: Last DP export: 12/29/19 8:00 a Patient Name: DOMINIC PERALTA Page 72036 at 1343 All edits/amendments must be made on the electronic document DICTATION DATE: 12/29/19 1342 SLOT FLOORMAN: RODNEY 12/29/19 1342 RPT#: [id number] DC DATE: STATUS: ADM IN [facility] [address] [place] [address] END OF REPORT
--- NOTE | 2019-12-29 14:09 | MORECARE ---
CASE MANAGEMENT DISCHARGE SUMMARY PATIENT: DOMINIC PERALTA UNIT: [id number] ADM DATE: 12/24/19 AGE: 69 : 48 SEX: M ROOM/BED: D.6589 AUTHOR: CÉSARDOC PHYSICIAN: REFERRING PHYSICIAN: LISSETTE MCCOLLUM MD DATE OF SERVICE: 12/29/19 Discharge Plan Patient Name: DOMINIC PERALTA Facility: [facility]:[place] : 1950 Planned Disposition: Anticipated Discharge Date: Discharge Date: Expected LOS: Initial Reviewer: [email or web address] Initial Review Date: 12/24/2019 Generated: 12/29/19 3:08 pm Comments DCP- Discharge Planning Updated by [id number]: Luisa Iqbal on 12/29/19 1:[address] CM RECIEVED CALL FROM ARIEL ALFARO. DOMINIC STATED CM, DR, NURSING, AND ADMINITISTRATION HAS DONE NOTHING FOR HIS FATHER. STATED HE HAD TO YELL AND SCREAM TO GET HIS MOTHER TRANSFERED, AND HE IS NOT AFRAID OF COMMING TO THE HOSPITAL TO GET HIS FATHER TRANSFERED WELL. ELIZABETH STATED HOW [facility] WAS NOTIFIED THIS AM, AND WHAT WAS DONE TO GET PT TRANSFERED. TODAY. DOMINIC CONTINUEW TO YELL AT STATING HE DOES NOT UNDERSTAND HOW CM CAN DO NOTHING FOR HIS FATHER. STATES HE HAS A DR WHO HAS ACCEPTED HIM, BUT THE HOSPITAL WILL NOT TRANSFER HIM. ELIZABETH STATES SHE WILL CONTINUE TO REACH OUT TO [facility] AND SOON THEY PROVIDE ACCEPTANCE AND AN AVALABLE BED HE WILL BE TRANSFERED REQUESTED. STATES THAT HE HAS NOT HAD A CONFERSATION WITH A DOCTOR IN 4 DAYS. AND WILL GO TO ADMINISTRATION IF HE HAS TOO. STATED THAT THE DR IS ROUNDING ONE EVERY PATIENT AND CM WILL PROVIDE THE DR WITH HIS NUMBER. CM ATTEMPT TO PROVIDE REASSURANCE. CM PROVIDED DR RIZZO WITH A PHONE NUMBER TO REACH DOMINIC FOR UPDATE. WHO STATES HE WILL SPEAK WITH THE FAMILY. LUISA IQBAL MSN,RN,CM DCP- Discharge Planning Updated by [id number]: Luisa Iqbal on 12/29/19 7:[address] Patient Name: DOMINIC PERALTA Encounter No: [id number] : 1950 Primary Insurance: MEDICARE A & B Anticipated DC Date: Planned Disposition: External Planned Provider: : DCP follow-up note: CM was asked to called Pt daughter Jessica at [phone]. Cm called Jessica who was very upset. Jessica began yelling as soon as CM initiated conversation. Jessica states that her father is not being cared for. States since this hospital is not able to provide PT she fears her father will decline at a rapid rate. She demands that CM call [facility] and get him transferred to a higher level of care. CM called general house worker for update then called [facility] transfer team at [phone] and spoke to Keely CRAFT. ELIZABETH provided clinical representation, and Keely states she will call CM for bed availability. CM will call pt family for updates as they arise. Case management will follow and assist as needed. Luisa Iqbal DCP- Discharge Planning Updated by [id number]: Ariel Strange on 12/28/19 3:[address] Patient Name: DOMINIC PERALTA Encounter No: [id number] : 1950 Primary Insurance: MEDICARE A & B Anticipated DC Date: Planned Disposition: External Planned Provider: : DCP follow-up note: TC to Regina. Regina states that she received fax and will contact us with placement if possible. Will continue to follow Ariel Strange DCP- Discharge Planning Updated by [id number]: Ariel Strange on 12/28/19 1:[address] Patient Name: DOMINIC PERALTA Encounter No: [id number] : 1950 Primary Insurance: MEDICARE A & B Anticipated DC Date: Planned Disposition: External Planned Provider: : DCP follow-up note: Spoke with Regina Perry who coordinates with [facility]. Regina states that the patient should be able to transfer to [facility] and has reviewed previous clinicals sent. Will traditionally fax latest progress notes and medication list per request via. Will continue to follow. Ariel Strange DCP- Discharge Planning Updated by [id number]: Luisa Iqbal on 12/27/19 5:[address] Cm spoke with Regina from [facility] who states they are looking at the clinicals. They will get back with CM with determination. Luisa Iqbal DCP- Discharge Planning Updated by [email or web address]: Luisa Iqbal on 12/26/19 7:[address] Patient Name: DOMINIC PERALTA Admission Status: ER Accout number: [id number] Admission Date: 12-24-2019 : 1950 Admission Diagnosis:COVID-19 Attending: LISSETTE MCCOLLUM Current LOS: 2 Anticipated DC Date: Planned Disposition: Primary Insurance: MEDICARE A & B Discharge Planning Comments: CM called pt dtr Renee at [phone] about dc planning. CM educated patient on the CM role and verbal consent given by patient to complete assessment. CM verified patient's address, phone number, and emergency contact phone numbers. Patient lives at home with his in a basement apartment at their sons house. Renee voiced concerns over her father's Parkinson's disease and the increased weakness he has. States her and her siblings may not be able to care for him upon dc. Renee mad a 3 way call with CM and her siblings so that each family member can speak about concerns. CM spoke to family about SNF, HH, PT, and private CG. Each states that their parents do not have enough money to afford private duty care. And they all need to work and are unable to provide 24 hour care. CM provided details of finding a SNF with [facility]. They stated they will think about a SNF and return a call to . Later this afternoon CM received a call from Renee stating the family is in agreement for SNF. Renee stated she called [facility] who will look at the clinical information. CM faxed clinicals to [facility] as requested. CM will continue to follow and will assist as needed with dc plans/needs. Phone Representative: Luisa Iqbal DCP- Discharge Planning Updated by [id number]: Luisa Iqbal on 12/26/19 7:[address] LATE ENTRY. CONVERSATION OCCURED 12/25/19 CM RECIEVED A CALL FROM PT DAUGHTER RENEE ([phone]) WHO DEMANDS HER MOTHER AND FATHER BE SENT TO [facility] FOR A HIGHER LEVEL OF CARE. SHE STATES THEY ARE A [facility] C[facility] AND THEY HAVE ACCESS TO [facility] IF HER FAMILY REQUIRES IT. CM EDUCATED RENEE ON WHAT CONSTITUTES A HIGHER LEVEL OF CARE. SHE STATES SHE HAS DR AGARWAL WHO WILL ACCEPT HER AND WANTS THE AMBULANCE RIDE COVERED BY INSURANCE SINCE IT IS A HIGHER LEVEL OF CARE. CM REINFORCED THAT IT IS A LATERAL TRANSFER. THE SERVICES PROVIDED TO HER PARENTS ARE THE SAME IT WOULD BE AT [facility], AND INSURANCE WILL NOT PAY FOR TRANSPORT. 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 SHE STATES SHE IS THEIR ONLY ADVOCATE IS TERRIFIED FOR THEIR LIVES. CM PROVIDED INSTRUCTION TO WHAT [facility] IS DOING CLINICALLY FOR HER FAMILY. CM ALLOWED RENEE TO VENT HER CONCERNS, WHILE PROVIDING EMOTIONAL SUPPORT. RENEE VOICED UNDERSTANDING AND WAS THANKFUL FOR THE INFORMATION PROVIDED. SHE REQUESTS THAT THE DR CALL HER FOR UPDATES. ELIZABETH SPOKE WITH THE NURSE PROVIDING CARE FOR THE PATIENT AND RELAYED THE REQUEST. THE NURSES STATES THAT DR MEJIA WILL CALL AFTER HE ROUNDS ON THE PATIENT TODAY. CM TO CONTINUE ASSISTING NEEDED WITH DC PLANS/NEEDS LUISA IQBAL Last DP export: 12/29/19 12:43 p Patient Name: DOMINIC PERALTA Page [id number] at 1409 All edits/amendments must be made on the electronic document DICTATION DATE: 12/29/191407 WAREHOUSE LABORER: RODNEY 12/29/191407 RPT#: [id number] DC DATE: STATUS: ADM IN [facility] [address] [place] [address] END OF REPORT
--- NOTE | 2019-12-29 14:24 | NUR ---
APPROX 0915 THIS AM ASSISTED PT UP OOB TO BATHROOM COMMODE IN ROOM--PT NEEDED LITTLE ASSIST TO GET UP OOB AND ONLY STAND BY ASSISTANCE WALKING TO COMMODE W/WALKER-- PT SAT UP FOR APPROX 20-30 MINUTES ON COMMODE THEN STOOD UP W/LITTLE ASSISTANCE AND AMBULATED W/WALKER BACK TO BED--NURSE ASSISTED PT BACK INTO BED--NO FURTHER NEEDS VOICED.
--- NOTE | 2019-12-29 14:49 | MORECARE ---
CASE MANAGEMENT DISCHARGE SUMMARY PATIENT: DOMINIC PERALTA UNIT: [id number] ADM DATE: 12/24/19 AGE: 69 : 48 SEX: M ROOM/BED: D.2474 AUTHOR: CÉSAR,DOC PHYSICIAN: REFERRING PHYSICIAN: LISSETTE MCCOLLUM MD DATE OF SERVICE: 12/29/19 Discharge Plan Patient Name: DOMINIC PERALTA Facility: [facility]:[place] : 1950 Planned Disposition: Anticipated Discharge Date: Discharge Date: Expected LOS: Initial Reviewer: [email or web address] Initial Review Date: 12/24/2019 Generated: 12/29/19 3:48 pm Comments DCP- Discharge Planning Updated by [id number]: Luisa Iqbal on 12/29/19 1:[address] CM CALLED HUI AT [facility] AT [phone] ABOUT PENDING TRANSFER. SHE STATED THAT SHE HAS NOT RECIEVED THE FAX. CONFIRMED FAX NUMBER OF [phone]. SHE STATES SHE IS NOT ABLE TO RECIEVE ELECTRONIC FAXES AT THIS TIME. CM REFAXED FACE SHEET TO [phone]. CM MANUALLY FAXED CLINICALS. PROVIDED CM DIRECT LINE, AND THE NURSES STATION NUMBER IF A BED OPEN UP. LUISA IQBAL DCP- Discharge Planning Updated by [id number]: Luisa Iqbal on 12/29/19 1:[address] CM RECIEVED CALL FROM ARIEL ALFARO. DOMINIC STATED ELIZABETH, DR, NURSING, AND ADMINITISTRATION HAS DONE NOTHING FOR HIS FATHER. STATED HE HAD TO YELL AND SCREAM TO GET HIS MOTHER TRANSFERED, AND HE IS NOT AFRAID OF COMMING TO THE HOSPITAL TO GET HIS FATHER TRANSFERED WELL. ELIZABETH STATED HOW [facility] WAS NOTIFIED THIS AM, AND WHAT WAS DONE TO GET PT TRANSFERED. TODAY. DOMINIC CONTINUEW TO YELL AT STATING HE DOES NOT UNDERSTAND HOW CM CAN DO NOTHING FOR HIS FATHER. STATES HE HAS A DR WHO HAS ACCEPTED HIM, BUT THE HOSPITAL WILL NOT TRANSFER HIM. ELIZABETH STATES SHE WILL CONTINUE TO REACH OUT TO [facility] AND SOON THEY PROVIDE ACCEPTANCE AND AN AVALABLE BED HE WILL BE TRANSFERED REQUESTED. STATES THAT HE HAS NOT HAD A CONFERSATION WITH A DOCTOR IN 4 DAYS. AND WILL GO TO ADMINISTRATION IF HE HAS TOO. STATED THAT THE DR IS ROUNDING ONE EVERY PATIENT AND CM WILL PROVIDE THE DR WITH HIS NUMBER. CM ATTEMPT TO PROVIDE REASSURANCE. CM PROVIDED DR RIZZO WITH A PHONE NUMBER TO REACH DOMINIC FOR UPDATE. WHO STATES HE WILL SPEAK WITH THE FAMILY. LUISA IQBAL MSN,RN,CM DCP- Discharge Planning Updated by [id number]: Luisa Iqbal on 12/29/19 7:[address] Patient Name: DOMINIC PERALTA Encounter No: [id number] : 1950 Primary Insurance: MEDICARE A & B Anticipated DC Date: Planned Disposition: External Planned Provider: : DCP follow-up note: CM was asked to called Pt daughter Jessica at [phone]. Cm called Jessica who was very upset. Jessica began yelling as soon as CM initiated conversation. Jessica states that her father is not being cared for. States since this hospital is not able to provide PT she fears her father will decline at a rapid rate. She demands that CM call [facility] and get him transferred to a higher level of care. CM called supervisor dimension warehouse for update then called [facility] transfer team at [phone] and spoke to Keely CRAFT. CM provided clinical representation, and Keely states she will call CM for bed availability. CM will call pt family for updates as they arise. Case management will follow and assist as needed. Luisa Iqbal DCP- Discharge Planning Updated by [id number]: Ariel Strange on 12/28/19 3:[address] Patient Name: DOMINIC PERALTA Encounter No: [id number] : 1950 Primary Insurance: MEDICARE A & B Anticipated DC Date: Planned Disposition: External Planned Provider: : DCP follow-up note: TC to Regina. Regina states that she received fax and will contact us with placement if possible. Will continue to follow Ariel Strange DCP- Discharge Planning Updated by [id number]: Ariel Strange on 12/28/19 1:[address] Patient Name: DOMINIC PERALTA Encounter No: [id number] : 1950 Primary Insurance: MEDICARE A & B Anticipated DC Date: Planned Disposition: External Planned Provider: : DCP follow-up note: Spoke with Regina Perry who coordinates with [facility]. Regina states that the patient should be able to transfer to [facility] and has reviewed previous clinicals sent. Will traditionally fax latest progress notes and medication list per request via. Will continue to follow. Ariel Strange DCP- Discharge Planning Updated by [id number]: Luisa Iqbal on 12/27/19 5:[address] Cm spoke with Regina from [facility] who states they are looking at the clinicals. They will get back with CM with determination. Luisa Iqbal DCP- Discharge Planning Updated by [id number]: Luisa Iqbal on 12/26/19 7:[address] Patient Name: DOMINIC PERALTA Admission Status: ER Accout number: [id number] Admission Date: 12-24-2019 : 1950 Admission Diagnosis:COVID-19 Attending: LISSETTE MCCOLLUM Current LOS: 2 Anticipated DC Date: Planned Disposition: Primary Insurance: MEDICARE A & B Discharge Planning Comments: CM called pt dtr Renee at [phone] about dc planning. CM educated patient on the CM role and verbal consent given by patient to complete assessment. CM verified patient's address, phone number, and emergency contact phone numbers. Patient lives at home with his in a basement apartment at their sons house. Renee voiced concerns over her father's Parkinson's disease and the increased weakness he has. States her and her siblings may not be able to care for him upon dc. Renee mad a 3 way call with CM and her siblings so that each family member can speak about concerns. CM spoke to family about SNF, HH, PT, and private CG. Each states that their parents do not have enough money to afford private duty care. And they all need to work and are unable to provide 24 hour care. CM provided details of finding a SNF with [facility]. They stated they will think about a SNF and return a call to . Later this afternoon CM received a call from Renee stating the family is in agreement for SNF. Renee stated she called [facility] who will look at the clinical information. CM faxed clinicals to [facility] as requested. CM will continue to follow and will assist as needed with dc plans/needs. Real Estate Sales Supervisor: Luisa Iqbal DCP- Discharge Planning Updated by [email or web address]: Luisa Rasheed on 12/26/19 7:[address] LATE ENTRY. CONVERSATION OCCURED 12/25/19 CM RECIEVED A CALL FROM PT DAUGHTER RENEE ([phone]) WHO DEMANDS HER MOTHER AND FATHER BE SENT TO [facility] FOR A HIGHER LEVEL OF CARE. SHE STATES THEY ARE A L[facility]EL [facility]E T[facility]ATMENT CENTER AND THEY HAVE ACCESS TO [facility] IF HER FAMILY REQUIRES IT. CM EDUCATED RENEE ON WHAT CONSTITUTES A HIGHER LEVEL OF CARE. SHE STATES SHE HAS DR AGARWAL WHO WILL ACCEPT HER AND WANTS THE AMBULANCE RIDE COVERED BY INSURANCE SINCE IT IS A HIGHER LEVEL OF CARE. CM REINFORCED THAT IT IS A LATERAL TRANSFER. THE SERVICES PROVIDED TO HER PARENTS ARE THE SAME IT WOULD BE AT [facility], AND INSURANCE WILL NOT PAY FOR TRANSPORT. 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 SHE STATES SHE IS THEIR ONLY ADVOCATE IS TERRIFIED FOR THEIR LIVES. CM PROVIDED INSTRUCTION TO WHAT [facility] IS DOING CLINICALLY FOR HER FAMILY. CM ALLOWED RENEE TO VENT HER CONCERNS, WHILE PROVIDING EMOTIONAL SUPPORT. RENEE VOICED UNDERSTANDING AND WAS THANKFUL FOR THE INFORMATION PROVIDED. SHE REQUESTS THAT THE DR CALL HER FOR UPDATES. ELIZABETH SPOKE WITH THE NURSE PROVIDING CARE FOR THE PATIENT AND RELAYED THE REQUEST. THE NURSES STATES THAT DR MEJIA WILL CALL AFTER HE ROUNDS ON THE PATIENT TODAY. CM TO CONTINUE ASSISTING NEEDED WITH DC PLANS/NEEDS LUISA RASHEED Last DP export: 12/29/19 1:09 p Patient Name: DOMINIC PERALTA Page [id number] at 1449 All edits/amendments must be made on the electronic document DICTATION DATE: 12/29/198 LOCOMOTIVE CRANE OPERATOR HELPER: RODNEY 12/29/198 RPT#: [id number] DC DATE: STATUS: ADM IN [facility] [address] [place] [address] END OF REPORT
[2019-12-29 15:45] VITALS: BP 188/96
--- NOTE | 2019-12-29 16:15 | NUR ---
[facility] CONTACTED THIS NURSE AND STATED THE PT WAS NOT ACCEPTED
--- NOTE | 2019-12-29 16:18 | NUR ---
DR RIZZO AT THE [facility] STATION AT THIS TIME--VERBALLY EXPLAINED TO DR RIZZO THAT [facility] HAS DECLINED TO ACCEPT THE PT--DR RIZZO WILL CONTACT THE PT'S DTR TANMAY AND EXPLAIN.
--- NOTE | 2019-12-29 22:22 | NUR ---
CONDOM CATH CAME OFF--NEW GREEN CONDOM CATH PLACED ON PT AT THIS TIME--REPOSITIONED PT IN BED ALL NEEDED ITEMS NEAR, DENIES ANY FURTHER NEEDS.
[2019-12-29 22:26] VITALS: BP 169/83
--- NOTE | 2019-12-29 23:45 | NUR ---
ASSUMED CARE OF PATIENT FROM PREVIOUS SHIFT. IN COVID DROPLET ISOLATION. O2 AT 2L PER NC. ON HEART MONITOR SHOWING SR, HR 66. DENIES NEEDS EXCEPT FOR DIET [place] WITH ICE, TOLD HIM THAT I WOULD BRING IT IN WHEN I DID HIS MEDICATIONS FOR THE NIGHT. LEFT FA PIV SEEN SALINE LOCK. CALL LIGHT AT RIGHT SIDE, INSTRUCTED TO NOT GET UP WITHOUT HELP. STATES TO UNDERSTANDING. WILL MONITOR FOR NEEDS.
[2019-12-30 02:47] VITALS: BP 154/64
--- NOTE | 2019-12-30 03:27 | NUR ---
RESTING WITH EYES CLOSED. RESP ARE EVEN. IV INFUSING WITHOUT PROBLEMS. WILL CONTINUE TO FOLLOW AND MONITOR FOR ANY NEEDS.
[2019-12-30 06:15] VITALS: BP 170/88
--- NOTE | 2019-12-30 06:44 | NUR ---
FSBS IS 195, COVERED WITH 4 UNITS OF INSULIN PER SLIDING SCALE TO RIGHT ARM. STATES THAT HE WANTS TO SLEEP MORE.
[2019-12-30 07:58] VITALS: BP 183/86
--- NOTE | 2019-12-30 09:23 | MORECARE ---
CASE MANAGEMENT DISCHARGE SUMMARY PATIENT: DOMINIC PERALTA UNIT: [id number] ADM DATE: 12/24/19 AGE: 69 : 48 SEX: M ROOM/BED: D.2130 AUTHOR: CÉSAR,DOC PHYSICIAN: REFERRING PHYSICIAN: LISSETTE MCCOLLUM MD DATE OF SERVICE: 12/30/19 Discharge Plan Patient Name: DOMINIC PEARLTA Facility: [facility]:[place] : 1950 Planned Disposition: Anticipated Discharge Date: Discharge Date: Expected LOS: Initial Reviewer: [id number] Initial Review Date: 12/24/2019 Generated: 12/30/19 10:22 am Comments DCP- Discharge Planning Updated by [id number]: Luisa Iqbal on 12/30/19 8:[address] Late Entry assessment competed at 1530 12/29/19 CM received a call from Hui at the access team at [facility] with a determination that they are unable to accept the patient because it is a lateral transfer. Hui states she has received several calls about the transfer and [facility] is unable to accept the patient, and the facility would prefer not to receive any more calls regarding this patient unless his condition deteriorates. Elizabeth spoke with Dr. Rizzo regarding the determination. Dr. Rizzo stated he would call the family and update. Luisa Iqbal DCP- Discharge Planning Updated by [id number]: Luisa Iqbal on 12/29/19 1:[address] CM CALLED HUI AT [facility] AT [phone] ABOUT PENDING TRANSFER. SHE STATED THAT SHE HAS NOT RECIEVED THE FAX. CONFIRMED FAX NUMBER OF [phone]. SHE STATES SHE IS NOT ABLE TO RECIEVE ELECTRONIC FAXES AT THIS TIME. CM REFAXED FACE SHEET TO [phone]. CM MANUALLY FAXED CLINICALS. PROVIDED CM DIRECT LINE, AND THE NURSES STATION NUMBER IF A BED OPEN UP. LUISA IQBAL DCP- Discharge Planning Updated by [id number]: Luisa Iqbal on 12/29/19 1:[address] CM RECIEVED CALL FROM ARIEL ALFARO. DOMINIC STATED ELIZABETH, DR, NURSING, AND ADMINITISTRATION HAS DONE NOTHING FOR HIS FATHER. STATED HE HAD TO YELL AND SCREAM TO GET HIS MOTHER TRANSFERED, AND HE IS NOT AFRAID OF COMMING TO THE HOSPITAL TO GET HIS FATHER TRANSFERED WELL. CM STATED HOW [facility] WAS NOTIFIED THIS AM, AND WHAT WAS DONE TO GET PT TRANSFERED. TODAY. DOMINIC CONTINUEW TO YELL AT STATING HE DOES NOT UNDERSTAND HOW CM CAN DO NOTHING FOR HIS FATHER. STATES HE HAS A DR WHO HAS ACCEPTED HIM, BUT THE HOSPITAL WILL NOT TRANSFER HIM. CM STATES SHE WILL CONTINUE TO REACH OUT TO [facility] AND SOON THEY PROVIDE ACCEPTANCE AND AN AVALABLE BED HE WILL BE TRANSFERED REQUESTED. STATES THAT HE HAS NOT HAD A CONFERSATION WITH A DOCTOR IN 4 DAYS. AND WILL GO TO ADMINISTRATION IF HE HAS TOO. STATED THAT THE DR IS ROUNDING ONE EVERY PATIENT AND CM WILL PROVIDE THE DR WITH HIS NUMBER. CM ATTEMPT TO PROVIDE REASSURANCE. CM PROVIDED DR RIZZO WITH A PHONE NUMBER TO REACH DOMINIC FOR UPDATE. WHO STATES HE WILL SPEAK WITH THE FAMILY. LUISA IQBAL MSN,RN, DCP- Discharge Planning Updated by [id number]: Luisa Iqbal on 12/29/19 7:[address] Patient Name: DOMINIC PERALTA Encounter No: [id number] : 1950 Primary Insurance: MEDICARE A & B Anticipated DC Date: Planned Disposition: External Planned Provider: : DCP follow-up note: CM was asked to called Pt daughter Jessica at [phone]. Cm called Jessica who was very upset. Jessica began yelling as soon as CM initiated conversation. Jessica states that her father is not being cared for. States since this hospital is not able to provide PT she fears her father will decline at a rapid rate. She demands that CM call [facility] and get him transferred to a higher level of care. CM called supervisor tank house for update then called [facility] transfer team at [phone] and spoke to Keely CRAFT. ELIZABETH provided clinical representation, and Keely states she will call CM for bed availability. CM will call pt family for updates as they arise. Case management will follow and assist as needed. Luisa Iqbal DCP- Discharge Planning Updated by [id number]: Ariel Strange on 12/28/19 3:[address] Patient Name: DOMINIC PERALTA Encounter No: [id number] : 1950 Primary Insurance: MEDICARE A & B Anticipated DC Date: Planned Disposition: External Planned Provider: : DCP follow-up note: TC to Regina. Regina states that she received fax and will contact us with placement if possible. Will continue to follow Ariel Strange DCP- Discharge Planning Updated by [email or web address]: Ariel Strange on 12/28/19 1:[address] Patient Name: DOMINIC PERALTA Encounter No: [id number] : 1950 Primary Insurance: MEDICARE A & B Anticipated DC Date: Planned Disposition: External Planned Provider: : DCP follow-up note: Spoke with Regina Perry who coordinates with [facility]. Regina states that the patient should be able to transfer to [facility] and has reviewed previous clinicals sent. Will traditionally fax latest progress notes and medication list per request via. Will continue to follow. Ariel Strange DCP- Discharge Planning Updated by [id number]: Luisa Iqbal on 12/27/19 5:[address] Cm spoke with Regina from [facility] who states they are looking at the clinicals. They will get back with CM with determination. Luisa Iqbal DCP- Discharge Planning Updated by [id number]: Luisa Iqbal on 12/26/19 7:[address] Patient Name: DOMINIC PERALTA Admission Status: ER Accout number: [id number] Admission Date: 12-24-2019 : 1950 Admission Diagnosis:COVID-19 Attending: LISSETTE MCCOLLUM Current LOS: 2 Anticipated DC Date: Planned Disposition: Primary Insurance: MEDICARE A & B Discharge Planning Comments: CM called pt dtr Renee at [phone] about dc planning. CM educated patient on the CM role and verbal consent given by patient to complete assessment. CM verified patient's address, phone number, and emergency contact phone numbers. Patient lives at home with his in a basement apartment at their sons house. Renee voiced concerns over her father's Parkinson's disease and the increased weakness he has. States her and her siblings may not be able to care for him upon dc. Renee mad a 3 way call with CM and her siblings so that each family member can speak about concerns. CM spoke to family about SNF, HH, PT, and private CG. Each states that their parents do not have enough money to afford private duty care. And they all need to work and are unable to provide 24 hour care. CM provided details of finding a SNF with Covid. They stated they will think about a SNF and return a call to . Later this afternoon ELIZABETH received a call from Renee stating the family is in agreement for SNF. Renee stated she called [facility] who will look at the clinical information. CM faxed clinicals to [facility] as requested. CM will continue to follow and will assist as needed with dc plans/needs. Hydraulic Lift Driver: Luisa Iqbal DCP- Discharge Planning Updated by [id number]: Luisa Iqbal on 12/26/19 7:[address] LATE ENTRY. CONVERSATION OCCURED 12/25/19 CM RECIEVED A CALL FROM PT DAUGHTER RENEE ([phone]) WHO DEMANDS HER MOTHER AND FATHER BE SENT TO [facility] FOR A HIGHER LEVEL OF CARE. SHE STATES THEY ARE A LEVEL OE TREATMENT CENTER AND THEY HAVE ACCESS TO [facility] IF HER FAMILY REQUIRES IT. CM EDUCATED RENEE ON WHAT CONSTITUTES A HIGHER LEVEL OF CARE. SHE STATES SHE HAS DR AGARWAL WHO WILL ACCEPT HER AND WANTS THE AMBULANCE RIDE COVERED BY INSURANCE SINCE IT IS A HIGHER LEVEL OF CARE. CM REINFORCED THAT IT IS A LATERAL TRANSFER. THE SERVICES PROVIDED TO HER PARENTS ARE THE SAME IT WOULD BE AT [facility], AND INSURANCE WILL NOT PAY FOR TRANSPORT. 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 SHE STATES SHE IS THEIR ONLY ADVOCATE IS TERRIFIED FOR THEIR LIVES. ELIZABETH PROVIDED INSTRUCTION TO WHAT [facility] IS DOING CLINICALLY FOR HER FAMILY. CM ALLOWED RENEE TO VENT HER CONCERNS, WHILE PROVIDING EMOTIONAL SUPPORT. RENEE VOICED UNDERSTANDING AND WAS THANKFUL FOR THE INFORMATION PROVIDED. SHE REQUESTS THAT THE DR CALL HER FOR UPDATES. ELIZABETH SPOKE WITH THE NURSE PROVIDING CARE FOR THE PATIENT AND RELAYED THE REQUEST. THE NURSES STATES THAT DR MEJIA WILL CALL AFTER HE ROUNDS ON THE PATIENT TODAY. CM TO CONTINUE ASSISTING NEEDED WITH DC PLANS/NEEDS LUISA IQBAL Last DP export: 12/29/19 1:49 p Patient Name: DOMINIC PERALTA Page [id number] at 0923 All edits/amendments must be made on the electronic document DICTATION DATE: 12/30/19921 RABBIT FANCIER: RODNEY 12/30/19921 RPT#: [id number] DC DATE: STATUS: ADM IN [facility] [address] [place] [address] END OF REPORT
[2019-12-30 10:26] LABS: BASOPHILS 0.1 % (0-2); EOSINOPHILS 0.4 % (0-7); HEMATOCRIT 36.5 % (42.0-54.0); HEMOGLOBIN 11.7 g/dL (13.5-17.5); IMMATURE GRANULOCYTES 2.1 % (0-5); MCH 27.7 pg (26.0-34.0); MCHC 32.1 g/dL (31.0-37.0); MCV 86.3 fL (80.0-100.0); MEAN PLATELET VOLUME 8.5 fL (7.4-10.4); MONOCYTES 7.5 % (2-11); NEUTROPHILS 81.9 % (40-80); PLATELET COUNT 240 10x3/uL (130-400); RBC 4.23 10x6/uL (4.20-6.10); RDW 15.1 % (11.5-14.5)
[2019-12-30 10:38] LABS: WBC 6.8 10x3/uL (4.8-10.8)
[2019-12-30 11:09] LABS: ALBUMIN 2.4 g/dL (3.4-5.0); ANION GAP 6.3 mmol/L (8-16); BILIRUBIN - TOTAL 0.56 mg/dL (0.2-1.3); C-REACTIVE PROTEIN 7.6 mg/dL (0.0-0.9); CALCIUM 8.4 mg/dL (8.5-10.1); CARBON DIOXIDE 29.2 mmol/L (21.0-32.0); CREATININE - SERUM 1.1 mg/dL (0.6-1.3); PHOSPHOROUS 3.3 mg/dL (2.5-4.9); POTASSIUM - SERUM 3.5 mmol/L (3.5-5.1); PROTEIN - SERUM 6.1 g/dL (6.4-8.2)
[2019-12-30 11:54] VITALS: BP 179/82
--- NOTE | 2019-12-30 12:11 | MORECARE ---
CASE MANAGEMENT DISCHARGE SUMMARY PATIENT: DOMINIC PERALTA UNIT: [id number] ADM DATE: 12/24/19 AGE: 69 : 48 SEX: M ROOM/BED: D.0304 AUTHOR: CÉSAR,DOC PHYSICIAN: REFERRING PHYSICIAN: LISSETTE MCCOLLUM MD DATE OF SERVICE: 12/30/19 Discharge Plan Patient Name: DOMINIC PERALTA Facility: [facility]:[place] : 1950 Planned Disposition: Anticipated Discharge Date: Discharge Date: Expected LOS: Initial Reviewer: [email or web address] Initial Review Date: 12/24/2019 Generated: 12/30/19 1:10 pm Comments DCP- Discharge Planning Updated by [id number]: Luisa Iqbal on 12/30/19 11:[address] CM RECIEVED CALL FROM AROLDO ALFARO. DOMINIC STATED CM, DR, NURSING, AND ADMINITISTRATION HAS DONE NOTHING FOR HIS FATHER. STATED HE HAD TO YELL AND SCREAM TO GET HIS MOTHER TRANSFERED, AND HE IS NOT AFRAID OF COMMING TO THE HOSPITAL TO GET HIS FATHER TRANSFERED WELL. ELIZABETH STATED HOW [facility] WAS NOTIFIED THIS AM, AND WHAT WAS DONE TO GET PT TRANSFERED. TODAY. DOMINIC CONTINUEW TO YELL AT STATING HE DOES NOT UNDERSTAND HOW CM CAN DO NOTHING FOR HIS FATHER. STATES HE HAS A DR WHO HAS ACCEPTED HIM, BUT THE HOSPITAL WILL NOT TRANSFER HIM. ELIZABETH STATES SHE WILL CONTINUE TO REACH OUT TO [facility] AND SOON THEY PROVIDE ACCEPTANCE AND AN AVALABLE BED HE WILL BE TRANSFERED REQUESTED. STATES THAT HE HAS NOT HAD A CONFERSATION WITH A DOCTOR IN 4 DAYS. AND WILL GO TO ADMINISTRATION IF HE HAS TOO. STATED THAT THE DR IS ROUNDING ON EVERY PATIENT AND CM WILL PROVIDE THE DR WITH HIS NUMBER. CM ATTEMPT TO PROVIDE REASSURANCE. CM PROVIDED DR RIZZO WITH A PHONE NUMBER TO REACH DOMINIC FOR UPDATE. WHO STATES HE WILL SPEAK WITH THE FAMILY. LUISA IQBAL MSN,RN,CM DCP- Discharge Planning Updated by [id number]: Luisa Iqbal on 12/30/19 11:[address] Patient Name: DOMINIC PERALTA Admission Status: ER Accout number: [id number] Admission Date: 12-24-2019 : 1950 Admission Diagnosis:COVID-19 Attending: LISSETTE MCCOLLUM Current LOS: 6 Anticipated DC Date: Planned Disposition: Primary Insurance: MEDICARE A & B Discharge Planning Comments: ELIZABETH spoke with Reign[facility] nina [facility] who states they are not able to accept the patient into that facility. States there is a facility in [place] who is accepting Covid positive patients at this time. CM will have Luisa CRAWFORD MGR to relay that that information to the family. Luisa Iqbal Grain Commodity Manager: Luisa Iqbal DCP- Discharge Planning Updated by [id number]: Luisa Iqbal on 12/30/19 8:[address] Late Entry assessment competed at 1530 12/29/19 CM received a call from Hui at the access team at [facility] with a determination that they are unable to accept the patient because it is a lateral transfer. Hui states she has received several calls about the transfer and [facility] is unable to accept the patient, and the facility would prefer not to receive any more calls regarding this patient unless his condition deteriorates. Elizabeth spoke with Dr. Rizzo regarding the determination. Dr. Rizzo stated he would call the family and update. Luisa Iqbal DCP- Discharge Planning Updated by [id number]: Luisa Iqbal on 12/29/19 1:[address] CM CALLED HUI AT [facility] AT [phone] ABOUT PENDING TRANSFER. SHE STATED THAT SHE HAS NOT RECIEVED THE FAX. CONFIRMED FAX NUMBER OF [phone]. SHE STATES SHE IS NOT ABLE TO RECIEVE ELECTRONIC FAXES AT THIS TIME. CM REFAXED FACE SHEET TO [phone]. CM MANUALLY FAXED CLINICALS. PROVIDED CM DIRECT LINE, AND THE NURSES STATION NUMBER IF A BED OPEN UP. LUISA IQBAL DCP- Discharge Planning Updated by [id number]: Luisa Iqbal on 12/29/19 7:[address] Patient Name: DOMINIC PERALTA Encounter No: [id number] : 1950 Primary Insurance: MEDICARE A & B Anticipated DC Date: Planned Disposition: External Planned Provider: : DCP follow-up note: ELIZABETH was asked to called Pt daughter Jessica at [phone]. Cm called Jessica who was very upset. Jessica began yelling as soon as CM initiated conversation. Jessica states that her father is not being cared for. States since this hospital is not able to provide PT she fears her father will decline at a rapid rate. She demands that CM call [facility] and get him transferred to a higher level of care. CM called housekeeping assistant for update then called [facility] transfer team at [phone] and spoke to Keely CRAFT. CM provided clinical representation, and Keely states she will call CM for bed availability. CM will call pt family for updates as they arise. Case management will follow and assist as needed. Luisa Iqbal DCP- Discharge Planning Updated by [id number]: Aroldo Strange on 12/28/19 3:[address] Patient Name: DOMINIC PERALTA Encounter No: [id number] : 1950 Primary Insurance: MEDICARE A & B Anticipated DC Date: Planned Disposition: External Planned Provider: : DCP follow-up note: TC to Regina. Regina states that she received fax and will contact us with placement if possible. Will continue to follow Aroldo Strange DCP- Discharge Planning Updated by [id number]: Aroldo Strange on 12/28/19 1:[address] Patient Name: DOMINIC PERALTA Encounter No: [id number] : 1950 Primary Insurance: MEDICARE A & B Anticipated DC Date: Planned Disposition: External Planned Provider: : DCP follow-up note: Spoke with Regina Perry who coordinates with [facility]. Regina states that the patient should be able to transfer to [facility] and has reviewed previous clinicals sent. Will traditionally fax latest progress notes and medication list per request via. Will continue to follow. Aroldo Strange DCP- Discharge Planning Updated by [id number]: Luisa Iqbal on 12/27/19 5:[address] Cm spoke with Regina from [facility] who states they are looking at the clinicals. They will get back with CM with determination. Luisa Iqbal DCP- Discharge Planning Updated by [id number]: Luisa Iqbal on 12/26/19 7:[address] Patient Name: DOMINIC PERALTA Admission Status: ER Accout number: [id number] Admission Date: 12-24-2019 : 1950 Admission Diagnosis:COVID-19 Attending: LISSETTE MCCOLLUM Current LOS: 2 Anticipated DC Date: Planned Disposition: Primary Insurance: MEDICARE A & B Discharge Planning Comments: CM called pt dtr Renee at [phone] about dc planning. CM educated patient on the CM role and verbal consent given by patient to complete assessment. CM verified patient's address, phone number, and emergency contact phone numbers. Patient lives at home with his in a basement apartment at their sons house. Renee voiced concerns over her father's Parkinson's disease and the increased weakness he has. States her and her siblings may not be able to care for him upon dc. Renee mad a 3 way call with CM and her siblings so that each family member can speak about concerns. CM spoke to family about SNF, HH, PT, and private CG. Each states that their parents do not have enough money to afford private duty care. And they all need to work and are unable to provide 24 hour care. CM provided details of finding a SNF with Covid. They stated they will think about a SNF and return a call to . Later this afternoon CM received a call from Renee stating the family is in agreement for SNF. Renee stated she called [facility] who will look at the clinical information. CM faxed clinicals to [facility] as requested. CM will continue to follow and will assist as needed with dc plans/needs. Grain Commodity Manager: Luisa Iqbal DCP- Discharge Planning Updated by [email or web address]: Luisa Iqbal on 12/26/19 7:[address] LATE ENTRY. CONVERSATION OCCURED 12/25/19 CM RECIEVED A CALL FROM PT DAUGHTER RENEE ([phone]) WHO DEMANDS HER MOTHER AND FATHER BE SENT TO [facility] FOR A HIGHER LEVEL OF CARE. SHE STATES THEY ARE A LEVEL OE TREATMENT CENTER AND THEY HAVE ACCESS TO [facility] IF HER FAMILY REQUIRES IT. CM EDUCATED RENEE ON WHAT CONSTITUTES A HIGHER LEVEL OF CARE. SHE STATES SHE HAS DR AGARWAL WHO WILL ACCEPT HER AND WANTS THE AMBULANCE RIDE COVERED BY INSURANCE SINCE IT IS A HIGHER LEVEL OF CARE. CM REINFORCED THAT IT IS A LATERAL TRANSFER. THE SERVICES PROVIDED TO HER PARENTS ARE THE SAME IT WOULD BE AT [facility], AND INSURANCE WILL NOT PAY FOR TRANSPORT. 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 SHE STATES SHE IS THEIR ONLY ADVOCATE IS TERRIFIED FOR THEIR LIVES. CM PROVIDED INSTRUCTION TO WHAT [facility] IS DOING CLINICALLY FOR HER FAMILY. CM ALLOWED RENEE TO VENT HER CONCERNS, WHILE PROVIDING EMOTIONAL SUPPORT. RENEE VOICED UNDERSTANDING AND WAS THANKFUL FOR THE INFORMATION PROVIDED. SHE REQUESTS THAT THE DR CALL HER FOR UPDATES. ELIZABETH SPOKE WITH THE NURSE PROVIDING CARE FOR THE PATIENT AND RELAYED THE REQUEST. THE NURSES STATES THAT DR MEJIA WILL CALL AFTER HE ROUNDS ON THE PATIENT TODAY. CM TO CONTINUE ASSISTING NEEDED WITH DC PLANS/NEEDS LUISA IQBAL Last DP export: 12/30/19 8:23 a Patient Name: DOMINIC PERALTA Page [id number] at 1211 All edits/amendments must be made on the electronic document DICTATION DATE: 12/30/19 1211 COAT REPAIR INSPECTOR: RODNEY 12/30/19 1211 RPT#: [id number] DC DATE: STATUS: ADM IN [facility] [address] [place] [address] END OF REPORT
--- NOTE | 2019-12-30 14:29 | NUR ---
Nutrition Follow-up: Pt in droplet isolation; covid-19+. Nursing reports pt eating well. Chart reviewed. Diet: Diabetic Wt: 275# (12/27) Labs noted: Glu 220, Ca 8.4, Alb 2.4, CRP 7.6 Meds noted: zinc sulfate, vitamin D, vitamin C, Humulin, electrolyte protocol -Encourage PO intake and honor food preferences within diet restrictions. -Need new wt if possible; noted daily wts ordered. -RD following.
--- NOTE | 2019-12-30 16:00 | MORECARE ---
CASE MANAGEMENT DISCHARGE SUMMARY PATIENT: DOMINIC PERALTA UNIT: [id number] ADM DATE: 12/24/19 AGE: 69 : 48 SEX: M ROOM/BED: D.1975 AUTHOR: CÉSAR,DOC PHYSICIAN: REFERRING PHYSICIAN: LISSETTE MCCOLLUM MD DATE OF SERVICE: 12/30/19 Discharge Plan Patient Name: DOMINIC PERALTA Facility: [facility]:[place] : 1950 Planned Disposition: Anticipated Discharge Date: Discharge Date: Expected LOS: Initial Reviewer: [id number] Initial Review Date: 12/24/2019 Generated: 12/30/19 5:00 pm Comments DCP- Discharge Planning Updated by [id number]: Luisa Iqbal on 12/30/19 11:[address] CM RECIEVED CALL FROM AROLDO ALFARO. DOMINIC STATED CM, DR, NURSING, AND ADMINITISTRATION HAS DONE NOTHING FOR HIS FATHER. STATED HE HAD TO YELL AND SCREAM TO GET HIS MOTHER TRANSFERED, AND HE IS NOT AFRAID OF COMMING TO THE HOSPITAL TO GET HIS FATHER TRANSFERED WELL. ELIZABETH STATED HOW [facility] WAS NOTIFIED THIS AM, AND WHAT WAS DONE TO GET PT TRANSFERED. TODAY. DOMINIC CONTINUEW TO YELL AT STATING HE DOES NOT UNDERSTAND HOW CM CAN DO NOTHING FOR HIS FATHER. STATES HE HAS A DR WHO HAS ACCEPTED HIM, BUT THE HOSPITAL WILL NOT TRANSFER HIM. ELIZABETH STATES SHE WILL CONTINUE TO REACH OUT TO [facility] AND SOON THEY PROVIDE ACCEPTANCE AND AN AVALABLE BED HE WILL BE TRANSFERED REQUESTED. STATES THAT HE HAS NOT HAD A CONFERSATION WITH A DOCTOR IN 4 DAYS. AND WILL GO TO ADMINISTRATION IF HE HAS TOO. STATED THAT THE DR IS ROUNDING ON EVERY PATIENT AND CM WILL PROVIDE THE DR WITH HIS NUMBER. CM ATTEMPT TO PROVIDE REASSURANCE. CM PROVIDED DR RIZZO WITH A PHONE NUMBER TO REACH DOMINIC FOR UPDATE. WHO STATES HE WILL SPEAK WITH THE FAMILY. LUISA IQBAL MSN,RN,CM DCP- Discharge Planning Updated by [id number]: Luisa Iqbal on 12/30/19 11:[address] Patient Name: DOMINIC PERALTA Admission Status: ER Accout number: [id number] Admission Date: 12-24-2019 : 1950 Admission Diagnosis:COVID-19 Attending: LISSETTE MCCOLLUM Current LOS: 6 Anticipated DC Date: Planned Disposition: Primary Insurance: MEDICARE A & B Discharge Planning Comments: ELIZABETH spoke with Regina nina [facility] who states they are not able to accept the patient into that facility. States there is a facility in [place] who is accepting Covid positive patients at this time. CM will have Luisa CRAWFORD MGR to relay that that information to the family. Luisa Iqbal Billet Assembler: Luisa Iqbal DCP- Discharge Planning Updated by [id number]: Luisa Iqbal on 12/30/19 8:[address] Late Entry assessment competed at 1530 12/29/19 CM received a call from Hui at the access team at [facility] with a determination that they are unable to accept the patient because it is a lateral transfer. Hui states she has received several calls about the transfer and [facility] is unable to accept the patient, and the facility would prefer not to receive any more calls regarding this patient unless his condition deteriorates. Elizabeth spoke with Dr. Rizzo regarding the determination. Dr. Rizzo stated he would call the family and update. Luisa Iqbal DCP- Discharge Planning Updated by [id number]: Luisa Iqbal on 12/29/19 1:[address] CM CALLED HUI AT [facility] AT [phone] ABOUT PENDING TRANSFER. SHE STATED THAT SHE HAS NOT RECIEVED THE FAX. CONFIRMED FAX NUMBER OF [phone]. SHE STATES SHE IS NOT ABLE TO RECIEVE ELECTRONIC FAXES AT THIS TIME. CM REFAXED FACE SHEET TO [phone]. CM MANUALLY FAXED CLINICALS. PROVIDED CM DIRECT LINE, AND THE NURSES STATION NUMBER IF A BED OPEN UP. LUISA IQBAL DCP- Discharge Planning Updated by [id number]: Luisa Iqbal on 12/29/19 7:[address] Patient Name: DOMINIC PERALTA Encounter No: [id number] : 1950 Primary Insurance: MEDICARE A & B Anticipated DC Date: Planned Disposition: External Planned Provider: : DCP follow-up note: ELIZABETH was asked to called Pt daughter Jessica at [phone]. Cm called Jessica who was very upset. Jessica began yelling as soon as CM initiated conversation. Jessica states that her father is not being cared for. States since this hospital is not able to provide PT she fears her father will decline at a rapid rate. She demands that CM call [facility] and get him transferred to a higher level of care. CM called supervisor bottle house cleaners for update then called [facility] transfer team at [phone] and spoke to Keely CRAFT. CM provided clinical representation, and Keely states she will call CM for bed availability. CM will call pt family for updates as they arise. Case management will follow and assist as needed. Luisa Iqbal DCP- Discharge Planning Updated by [id number]: Aroldo Strange on 12/28/19 3:[address] Patient Name: DOMINIC PERALTA Encounter No: [id number] : 1950 Primary Insurance: MEDICARE A & B Anticipated DC Date: Planned Disposition: External Planned Provider: : DCP follow-up note: TC to [facility]. Regina states that she received fax and will contact us with placement if possible. Will continue to follow Aroldo Strange DCP- Discharge Planning Updated by [id number]: Aroldo Strange on 12/28/19 1:[address] Patient Name: DOMINIC PERALTA Encounter No: [id number] : 1950 Primary Insurance: MEDICARE A & B Anticipated DC Date: Planned Disposition: External Planned Provider: : DCP follow-up note: Spoke with Regina Perry who coordinates with [facility]. Regina states that the patient should be able to transfer to [facility] and has reviewed previous clinicals sent. Will traditionally fax latest progress notes and medication list per request via. Will continue to follow. Aroldo Strange DCP- Discharge Planning Updated by [id number]: Luisa Iqbal on 12/27/19 5:[address] Cm spoke with Regina from [facility] who states they are looking at the clinicals. They will get back with CM with determination. Luisa Iqbal DCP- Discharge Planning Updated by [id number]: Luisa Iqbal on 12/26/19 7:[address] Patient Name: DOMINIC PERALTA Admission Status: ER Accout number: [id number] Admission Date: 12-24-2019 : 1950 Admission Diagnosis:COVID-19 Attending: LISSETTE MCCOLLUM Current LOS: 2 Anticipated DC Date: Planned Disposition: Primary Insurance: MEDICARE A & B Discharge Planning Comments: CM called pt dtr Renee at [phone] about dc planning. CM educated patient on the CM role and verbal consent given by patient to complete assessment. CM verified patient's address, phone number, and emergency contact phone numbers. Patient lives at home with his in a basement apartment at their sons house. Renee voiced concerns over her father's Parkinson's disease and the increased weakness he has. States her and her siblings may not be able to care for him upon dc. Renee mad a 3 way call with CM and her siblings so that each family member can speak about concerns. CM spoke to family about SNF, HH, PT, and private CG. Each states that their parents do not have enough money to afford private duty care. And they all need to work and are unable to provide 24 hour care. CM provided details of finding a SNF with Covid. They stated they will think about a SNF and return a call to . Later this afternoon CM received a call from Renee stating the family is in agreement for SNF. Renee stated she called [facility] who will look at the clinical information. CM faxed clinicals to [facility] as requested. CM will continue to follow and will assist as needed with dc plans/needs. Billet Assembler: Luisa Iqbal DCP- Discharge Planning Updated by [id number]: Luisa Iqbal on 12/26/19 7:[address] LATE ENTRY. CONVERSATION OCCURED 12/25/19 CM RECIEVED A CALL FROM PT DAUGHTER RENEE ([phone]) WHO DEMANDS HER MOTHER AND FATHER BE SENT TO [facility] FOR A HIGHER LEVEL OF CARE. SHE STATES THEY ARE A [facility] C[facility] AND THEY HAVE ACCESS TO [facility] IF HER FAMILY REQUIRES IT. CM EDUCATED RENEE ON WHAT CONSTITUTES A HIGHER LEVEL OF CARE. SHE STATES SHE HAS DR AGARWAL WHO WILL ACCEPT HER AND WANTS THE AMBULANCE RIDE COVERED BY INSURANCE SINCE IT IS A HIGHER LEVEL OF CARE. CM REINFORCED THAT IT IS A LATERAL TRANSFER. THE SERVICES PROVIDED TO HER PARENTS ARE THE SAME IT WOULD BE AT [facility], AND INSURANCE WILL NOT PAY FOR TRANSPORT. 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 SHE STATES SHE IS THEIR ONLY ADVOCATE IS TERRIFIED FOR THEIR LIVES. CM PROVIDED INSTRUCTION TO WHAT [facility] IS DOING CLINICALLY FOR HER FAMILY. CM ALLOWED RENEE TO VENT HER CONCERNS, WHILE PROVIDING EMOTIONAL SUPPORT. RENEE VOICED UNDERSTANDING AND WAS THANKFUL FOR THE INFORMATION PROVIDED. SHE REQUESTS THAT THE DR CALL HER FOR UPDATES. ELIZABETH SPOKE WITH THE NURSE PROVIDING CARE FOR THE PATIENT AND RELAYED THE REQUEST. THE NURSES STATES THAT DR MEJIA WILL CALL AFTER HE ROUNDS ON THE PATIENT TODAY. CM TO CONTINUE ASSISTING NEEDED WITH DC PLANS/NEEDS LUISA BRIANDS Last DP export: 12/30/19 11:11 a Patient Name: DOMINIC PERALTA Page [id number] at 1600 All edits/amendments must be made on the electronic document DICTATION DATE: 12/30/19 1600 FISHER PURSE SEINE: RODNEY 12/30/19 1600 RPT#: [id number] DC DATE: STATUS: ADM IN [facility] [address] [place] [address] END OF REPORT
--- NOTE | 2019-12-30 16:08 | MORECARE ---
CASE MANAGEMENT DISCHARGE SUMMARY PATIENT: DOMINIC PERALTA UNIT: [id number] ADM DATE: 12/24/19 AGE: 69 : 48 SEX: M ROOM/BED: D.6018 AUTHOR: AMEYA LINDSEY PHYSICIAN: REFERRING PHYSICIAN: LISSETTE MCCOLLUM MD DATE OF SERVICE: 12/30/19 Discharge Plan Patient Name: DOMINIC PERALTA [facility] [facility] 1950 Planned Disposition: Anticipated Discharge Date: Discharge Date: Expected LOS: Initial Reviewer: [id number] Initial Review Date: 12/24/2019 Generated: 12/30/19 5:07 pm Comments DCP- Discharge Planning Updated by [id number]: Luisa Iqbal on 12/30/19 3:[address] Patient Name: DOMINIC PERALTA Admission Status: ER Accout number: [id number] Admission Date: 12-24-2019 : 1950 Admission Diagnosis:COVID-19 Attending: LISSETTE MCCOLLUM Current LOS: 6 Anticipated DC Date: Planned Disposition: Primary Insurance: MEDICARE A & B Discharge Planning Comments: Spoke with Luisa El CM who states she spoke with the family and they have provided authorization to send referrals to any facility that will accept pt with COVID. EMIL sent referrals to clinical liasons [facility], and Kimberly for [facility], and Caroline for [facility]. CM will continue to assist in dc planning/needs. Door Patcher: Luisa Iqbal DCP- Discharge Planning Updated by [id number]: Luisa Iqbal on 12/30/19 11:[address] CM RECIEVED CALL FROM ARI[facility] ALFARO. DOMINIC STATED CM, DR, NURSING, AND ADMINITISTRATION HAS DONE NOTHING FOR HIS FATHER. STATED HE HAD TO YELL AND SCREAM TO GET HIS MOTHER TRANSFERED, AND HE IS NOT AFRAID OF COMMING TO THE HOSPITAL TO GET HIS FATHER TRANSFERED WELL. EMIL STATED HOW [facility] WAS NOTIFIED THIS AM, AND WHAT WAS DONE TO GET PT TRANSFERED. TODAY. DOMINIC CONTINUEW TO YELL AT CM STATING HE DOES NOT UNDERSTAND HOW CM CAN DO NOTHING FOR HIS FATHER. STATES HE HAS A DR WHO HAS ACCEPTED HIM, BUT THE HOSPITAL WILL NOT TRANSFER HIM. CM STATES SHE WILL CONTINUE TO REACH OUT TO [facility] AND SOON THEY PROVIDE ACCEPTANCE AND AN AVALABLE BED HE WILL BE TRANSFERED REQUESTED. STATES THAT HE HAS NOT HAD A CONFERSATION WITH A DOCTOR IN 4 DAYS. AND WILL GO TO ADMINISTRATION IF HE HAS TOO. STATED THAT THE DR IS ROUNDING ON EVERY PATIENT AND CM WILL PROVIDE THE DR WITH HIS NUMBER. CM ATTEMPT TO PROVIDE REASSURANCE. PROVIDED DR RIZZO WITH A PHONE NUMBER TO REACH DOMINIC FOR UPDATE. WHO STATES HE WILL SPEAK WITH THE FAMILY. LUISA IQBAL MSN,RN,CM DCP- Discharge Planning Updated by [id number]: Luisa Iqbal on 12/30/19 11:[address] Patient Name: DOMINIC PERALTA Admission Status: ER Accout number: [id number] Admission Date: 12-24-2019 : 1950 Admission Diagnosis:COVID-19 Attending: LISSETTE MCCOLLUM Current LOS: 6 Anticipated DC Date: Planned Disposition: Primary Insurance: MEDICARE A & B Discharge Planning Comments: EMIL spoke with Regina nina [facility] who states they are not able to accept the patient into that facility. States there is a facility in [place] who is accepting Covid positive patients at this time. CM will have Luisa CRAWFORD MGR to relay that that information to the family. Luisa Iqbal Door Patcher: Luisa Iqbal DCP- Discharge Planning Updated by [id number]: Luisa Iqbal on 12/30/19 8:[address] Late Entry assessment competed at 1530 12/29/19 CM received a call from Hui at the access team at [facility] with a determination that they are unable to accept the patient because it is a lateral transfer. Hui states she has received several calls about the transfer and [facility] is unable to accept the patient, and the facility would prefer not to receive any more calls regarding this patient unless his condition deteriorates. Emil spoke with Dr. Rizzo regarding the determination. Dr. Rizzo stated he would call the family and update. Luisa Iqbal DCP- Discharge Planning Updated by [id number]: Luisa Iqbal on 12/29/19 1:[address] CM CALLED HUI AT [facility] AT [phone] ABOUT PENDING TRANSFER. SHE STATED THAT SHE HAS NOT RECIEVED THE FAX. CONFIRMED FAX NUMBER OF [phone]. SHE STATES SHE IS NOT ABLE TO RECIEVE ELECTRONIC FAXES AT THIS TIME. CM REFAXED FACE SHEET TO [phone]. CM MANUALLY FAXED CLINICALS. PROVIDED CM DIRECT LINE, AND THE NURSES STATION NUMBER IF A BED OPEN UP. LUISA EDDS DCP- Discharge Planning Updated by [id number]: Luisa Iqbal on 12/29/19 7:[address] Patient Name: DOMINIC PERALTA Encounter No: [id number] : 1950 Primary Insurance: MEDICARE A & B Anticipated DC Date: Planned Disposition: External Planned Provider: : DCP follow-up note: CM was asked to called Pt daughter Jessica at [phone]. Cm called Jessica who was very upset. Jessica began yelling as soon as CM initiated conversation. Jessica states that her father is not being cared for. States since this hospital is not able to provide PT she fears her father will decline at a rapid rate. She demands that CM call [facility] and get him transferred to a higher level of care. CM called boarding house manager for update then called [facility] transfer team at [phone] and spoke to Keely CRAFT. EMIL provided clinical representation, and Keely states she will call CM for bed availability. CM will call pt family for updates as they arise. Case management will follow and assist as needed. Luisa Iqbal DCP- Discharge Planning Updated by [id number]: Ariel Strange on 12/28/19 3:[address] Patient Name: DOMINIC PERALTA Encounter No: [id number] : 1950 Primary Insurance: MEDICARE A & B Anticipated DC Date: Planned Disposition: External Planned Provider: : DCP follow-up note: TC to [facility]. Regina states that she received fax and will contact us with placement if possible. Will continue to follow Ariel Strange DCP- Discharge Planning Updated by [id number]: Ariel Strange on 12/28/19 1:[address] Patient Name: DOMINIC PERALTA Encounter No: [id number] : 1950 Primary Insurance: MEDICARE A & B Anticipated DC Date: Planned Disposition: External Planned Provider: : DCP follow-up note: Spoke with Regina Perry who coordinates with [place] [facility]. Regina states that the patient should be able to transfer to [facility] and has reviewed previous clinicals sent. Will traditionally fax latest progress notes and medication list per request via. Will continue to follow. Ariel Strange DCP- Discharge Planning Updated by [id number]: Luisa Iqbal on 12/27/19 5:[address] Cm spoke with Regina from [facility] who states they are looking at the clinicals. They will get back with CM with determination. Luisa Iqbal DCP- Discharge Planning Updated by [id number]: Luisa Iqbal on 12/26/19 7:[address] Patient Name: DOMINIC PERALTA Admission Status: ER Accout number: [id number] Admission Date: 12-24-2019 : 1950 Admission Diagnosis:COVID-19 Attending: LISSETTE MCCOLLUM Current LOS: 2 Anticipated DC Date: Planned Disposition: Primary Insurance: MEDICARE A & B Discharge Planning Comments: CM called pt dtr Renee at [phone] about dc planning. CM educated patient on the CM role and verbal consent given by patient to complete assessment. CM verified patient's address, phone number, and emergency contact phone numbers. Patient lives at home with his in a basement apartment at their sons house. Renee voiced concerns over her father's Parkinson's disease and the increased weakness he has. States her and her siblings may not be able to care for him upon dc. Renee mad a 3 way call with CM and her siblings so that each family member can speak about concerns. CM spoke to family about SNF, HH, PT, and private CG. Each states that their parents do not have enough money to afford private duty care. And they all need to work and are unable to provide 24 hour care. CM provided details of finding a SNF with [facility]. They stated they will think about a SNF and return a call to . Later this afternoon CM received a call from Renee stating the family is in agreement for SNF. Renee stated she called [facility] who will look at the clinical information. CM faxed clinicals to [facility] as requested. CM will continue to follow and will assist as needed with dc plans/needs. Door Patcher: Luisa Iqbal DCP- Discharge Planning Updated by [id number]: Luisa Iqbal on 12/26/19 7:[address] LATE ENTRY. CONVERSATION OCCURED 12/25/19 CM RECIEVED A CALL FROM PT DAUGHTER RENEE ([phone]) WHO DEMANDS HER MOTHER AND FATHER BE SENT TO [facility] FOR A HIGHER LEVEL OF CARE. SHE STATES THEY ARE A L[facility]EL [facility]E TREATMENT CENTER AND THEY HAVE ACCESS TO [facility] IF HER FAMILY REQUIRES IT. CM EDUCATED RENEE ON WHAT CONSTITUTES A HIGHER LEVEL OF CARE. SHE STATES SHE HAS DR AGARWAL WHO WILL ACCEPT HER AND WANTS THE AMBULANCE RIDE COVERED BY INSURANCE SINCE IT IS A HIGHER LEVEL OF CARE. CM REINFORCED THAT IT IS A LATERAL TRANSFER. THE SERVICES PROVIDED TO HER PARENTS ARE THE SAME IT WOULD BE AT [facility], AND INSURANCE WILL NOT PAY FOR TRANSPORT. 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 SHE STATES SHE IS THEIR ONLY ADVOCATE IS TERRIFIED FOR THEIR LIVES. CM PROVIDED INSTRUCTION TO WHAT [facility] IS DOING CLINICALLY FOR HER FAMILY. CM ALLOWED RENEE TO VENT HER CONCERNS, WHILE PROVIDING EMOTIONAL SUPPORT. RENEE VOICED UNDERSTANDING AND WAS THANKFUL FOR THE INFORMATION PROVIDED. SHE REQUESTS THAT THE DR CALL HER FOR UPDATES. EMIL SPOKE WITH THE NURSE PROVIDING CARE FOR THE PATIENT AND RELAYED THE REQUEST. THE NURSES STATES THAT DR MEJIA WILL CALL AFTER HE ROUNDS ON THE PATIENT TODAY. CM TO CONTINUE ASSISTING NEEDED WITH DC PLANS/NEEDS LUISA IQBAL Coverage Notice Reviewer: [id number] - Luisa Iqbal Notice Issued Date-Time: 12/26/2019 9:00 Notice Type: Patient Choice Letter Notice Delivered To: Family Member Relationship to Patient: Daughter Textile Machine Maintenance Mechanic Name: Renee Delivery Method: PHONE - Phone Jana Days: Prior Verbal Notification: Yes Recipient Understood Notice: Yes Recipient Signature: Med Rec Note Co-signed by Attending: Coverage Notice Comment: [facility] Reviewer: [id number] - Luisa Iqbal Notice Issued Date-Time: 12/30/2019 16:03 Notice Type: Patient Choice Letter Notice Delivered To: Family Member Relationship to Patient: Son in Law Textile Machine Maintenance Mechanic Name: Ariel Delivery Method: HAND - Hand Delivered Jana Days: Prior Verbal Notification: Yes Recipient Understood Notice: Yes Recipient Signature: Med Rec Note Co-signed by Attending: Coverage Notice Comment: any SNF. states it is CM job to find a facility that accepts covid. Last DP export: 12/30/19 3:00 p Patient Name: DOMINIC PERALTA Page [id number] at 1608 All edits/amendments must be made on the electronic document DICTATION DATE: 12/30/191607 FOUNDATION MAKER: RODNEY 12/30/191607 RPT#: [id number] DC DATE: STATUS: ADM IN [facility] [address] [place] [address] END OF REPORT
[2019-12-30 16:23] VITALS: BP 193/105
--- NOTE | 2019-12-30 16:46 | MORECARE ---
CASE MANAGEMENT DISCHARGE SUMMARY PATIENT: DOMINIC PERALTA UNIT: [id number] ADM DATE: 12/24/19 AGE: 69 : 48 SEX: M ROOM/BED: D.0195 AUTHOR: CÉSAR,DOC PHYSICIAN: REFERRING PHYSICIAN: LISSETTE MCCOLLUM MD DATE OF SERVICE: 12/30/19 Discharge Plan Patient Name: DOMINIC PERALTA Facility: [facility]:[place] : 1950 Planned Disposition: Anticipated Discharge Date: Discharge Date: Expected LOS: Initial Reviewer: [id number] Initial Review Date: 12/24/2019 Generated: 12/30/19 5:45 pm Comments DCP- Discharge Planning Updated by [id number]: Luisa Iqbal on 12/30/19 3:[address] CM RECIEVED CALL FROM ARIEL DOMINIC. DOMINIC STATED CM, DR, NURSING, AND ADMINITISTRATION HAS DONE NOTHING FOR HIS FATHER. STATED HE HAD TO YELL AND SCREAM TO GET HIS MOTHER TRANSFERED, AND HE IS NOT AFRAID OF COMMING TO THE HOSPITAL TO GET HIS FATHER TRANSFERED WELL. EMIL STATED HOW [facility] WAS NOTIFIED THIS AM, AND WHAT WAS DONE TO GET PT TRANSFERED. TODAY. DOMINIC CONTINUEW TO YELL AT STATING HE DOES NOT UNDERSTAND HOW CM CAN DO NOTHING FOR HIS FATHER. STATES HE HAS A DR WHO HAS ACCEPTED HIM, BUT THE HOSPITAL WILL NOT TRANSFER HIM. EMIL STATES SHE WILL CONTINUE TO REACH OUT TO [facility] AND SOON THEY PROVIDE ACCEPTANCE AND AN AVALABLE BED HE WILL BE TRANSFERED REQUESTED. STATES THAT HE HAS NOT HAD A CONFERSATION WITH A DOCTOR IN 4 DAYS. AND WILL GO TO ADMINISTRATION IF HE HAS TOO. STATED THAT THE DR IS ROUNDING ON EVERY PATIENT AND CM WILL PROVIDE THE DR WITH HIS NUMBER. CM ATTEMPT TO PROVIDE REASSURANCE. EMIL PROVIDED DR RIZZO WITH A PHONE NUMBER TO REACH Agata KAPLAN. WHO STATES HE WILL SPEAK WITH THE FAMILY. LUISA IQBAL MSN,RN,CM DCP- Discharge Planning Updated by [id number]: Luisa Iqbal on 12/30/19 3:[address] Patient Name: DOMINIC PERALTA Admission Status: ER Accout number: [id number] Admission Date: 12-24-2019 : 1950 Admission Diagnosis:COVID-19 Attending: LISSETTE MCCOLLUM Current LOS: 6 Anticipated DC Date: Planned Disposition: Primary Insurance: MEDICARE A & B Discharge Planning Comments: Spoke with Luisa El CM who states she spoke with the family and they have provided authorization to send referrals to any facility that will accept pt with COVID. EMIL sent referrals to clinical liasons [facility], and Kimberly for [facility], and Caroline for [facility]. EMIL will continue to assist in dc planning/needs. Crew Leader: Luisa Iqbal DCP- Discharge Planning Updated by [id number]: Luisa Iqbal on 12/30/19 11:[address] Patient Name: DOMINIC PERALTA Admission Status: ER Accout number: [id number] Admission Date: 12-24-2019 : 1950 Admission Diagnosis:COVID-19 Attending: LISSETTE MCCOLLUM Current LOS: 6 Anticipated DC Date: Planned Disposition: Primary Insurance: MEDICARE A & B Discharge Planning Comments: EMIL spoke with Regina from [facility] who states they are not able to accept the patient into that facility. States there is a facility in [place] who is accepting Covid positive patients at this time. CM will have Luisa CRAWFORD MGR to relay that that information to the family. Luisa Iqbal Crew Leader: Luisa Iqbal DCP- Discharge Planning Updated by [id number]: Luisa Iqbal on 12/30/19 8:[address] Late Entry assessment competed at 1530 12/29/19 CM received a call from Hui at the access team at [facility] with a determination that they are unable to accept the patient because it is a lateral transfer. Hui states she has received several calls about the transfer and [facility] is unable to accept the patient, and the facility would prefer not to receive any more calls regarding this patient unless his condition deteriorates. Emil spoke with Dr. Rizzo regarding the determination. Dr. Rizzo stated he would call the family and update. Luisa Iqbal DCP- Discharge Planning Updated by [id number]: Luisa Iqbal on 12/29/19 1:[address] CM CALLED HUI AT [facility] AT [phone] ABOUT PENDING TRANSFER. SHE STATED THAT SHE HAS NOT RECIEVED THE FAX. CONFIRMED FAX NUMBER OF [phone]. SHE STATES SHE IS NOT ABLE TO RECIEVE ELECTRONIC FAXES AT THIS TIME. CM REFAXED FACE SHEET TO [phone]. CM MANUALLY FAXED CLINICALS. PROVIDED CM DIRECT LINE, AND THE NURSES STATION NUMBER IF A BED OPEN UP. LUISA IQBAL DCP- Discharge Planning Updated by [id number]: Luisa Iqbal on 12/29/19 7:[address] Patient Name: DOMINIC PERALTA Encounter No: [id number] : 1950 Primary Insurance: MEDICARE A & B Anticipated DC Date: Planned Disposition: External Planned Provider: : DCP follow-up note: CM was asked to called Pt daughter Jessica at [phone]. Cm called Jessica who was very upset. Jessica began yelling as soon as CM initiated conversation. Jessica states that her father is not being cared for. States since this hospital is not able to provide PT she fears her father will decline at a rapid rate. She demands that CM call [facility] and get him transferred to a higher level of care. CM called house admin for update then called [facility] transfer team at [phone] and spoke to Keely CRAFT. EMIL provided clinical representation, and Keely states she will call CM for bed availability. CM will call pt family for updates as they arise. Case management will follow and assist as needed. Luisa Iqbal DCP- Discharge Planning Updated by [id number]: Ariel Strange on 12/28/19 3:[address] Patient Name: DOMINIC PERALTA Encounter No: [id number] : 1950 Primary Insurance: MEDICARE A & B Anticipated DC Date: Planned Disposition: External Planned Provider: : DCP follow-up note: TC to [facility]. Regina states that she received fax and will contact us with placement if possible. Will continue to follow Ariel Strange DCP- Discharge Planning Updated by [id number]: Ariel Strange on 12/28/19 1:[address] Patient Name: DOMINIC PERALTA Encounter No: [id number] : 1950 Primary Insurance: MEDICARE A & B Anticipated DC Date: Planned Disposition: External Planned Provider: : DCP follow-up note: Spoke with Regina Perry who coordinates with [facility]. Regina states that the patient should be able to transfer to [facility] and has reviewed previous clinicals sent. Will traditionally fax latest progress notes and medication list per request via. Will continue to follow. Ariel Strange DCP- Discharge Planning Updated by [id number]: Luisa Iqbal on 12/27/19 5:[address] Cm spoke with Regina from [facility] who states they are looking at the clinicals. They will get back with CM with determination. Luisa Iqbal DCP- Discharge Planning Updated by [id number]: Luisa Iqbal on 12/26/19 7:[address] Patient Name: DOMINIC PERALTA Admission Status: ER Accout number: [id number] Admission Date: 12-24-2019 : 1950 Admission Diagnosis:COVID-19 Attending: LISSETTE MCCOLLUM Current LOS: 2 Anticipated DC Date: Planned Disposition: Primary Insurance: MEDICARE A & B Discharge Planning Comments: CM called pt dtr eRnee at [phone] about dc planning. CM educated patient on the CM role and verbal consent given by patient to complete assessment. CM verified patient's address, phone number, and emergency contact phone numbers. Patient lives at home with his in a basement apartment at their sons house. Renee voiced concerns over her father's Parkinson's disease and the increased weakness he has. States her and her siblings may not be able to care for him upon dc. Renee mad a 3 way call with CM and her siblings so that each family member can speak about concerns. CM spoke to family about SNF, HH, PT, and private CG. Each states that their parents do not have enough money to afford private duty care. And they all need to work and are unable to provide 24 hour care. CM provided details of finding a SNF with [facility]. They stated they will think about a SNF and return a call to . Later this afternoon CM received a call from Renee stating the family is in agreement for SNF. Renee stated she called [facility] who will look at the clinical information. CM faxed clinicals to [facility] as requested. CM will continue to follow and will assist as needed with dc plans/needs. Crew Leader: Luisa Iqbal DCP- Discharge Planning Updated by [id number]: Luisa Iqbal on 12/26/19 7:[address] LATE ENTRY. CONVERSATION OCCURED 12/25/19 CM RECIEVED A CALL FROM PT DAUGHTER RENEE ([phone]) WHO DEMANDS HER MOTHER AND FATHER BE SENT TO [facility] FOR A HIGHER LEVEL OF CARE. SHE STATES THEY ARE A [facility] CENTER AND THEY HAVE ACCESS TO [facility] IF HER FAMILY REQUIRES IT. CM EDUCATED RENEE ON WHAT CONSTITUTES A HIGHER LEVEL OF CARE. SHE STATES SHE HAS DR AGARWAL WHO WILL ACCEPT HER AND WANTS THE AMBULANCE RIDE COVERED BY INSURANCE SINCE IT IS A HIGHER LEVEL OF CARE. CM REINFORCED THAT IT IS A LATERAL TRANSFER. THE SERVICES PROVIDED TO HER PARENTS ARE THE SAME IT WOULD BE AT [facility], AND INSURANCE WILL NOT PAY FOR TRANSPORT. 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 SHE STATES SHE IS THEIR ONLY ADVOCATE IS TERRIFIED FOR THEIR LIVES. CM PROVIDED INSTRUCTION TO WHAT [facility] IS DOING CLINICALLY FOR HER FAMILY. CM ALLOWED RENEE TO VENT HER CONCERNS, WHILE PROVIDING EMOTIONAL SUPPORT. RENEE VOICED UNDERSTANDING AND WAS THANKFUL FOR THE INFORMATION PROVIDED. SHE REQUESTS THAT THE DR CALL HER FOR UPDATES. EMIL SPOKE WITH THE NURSE PROVIDING CARE FOR THE PATIENT AND RELAYED THE REQUEST. THE NURSES STATES THAT DR MEJIA WILL CALL AFTER HE ROUNDS ON THE PATIENT TODAY. CM TO CONTINUE ASSISTING NEEDED WITH DC PLANS/NEEDS LUISA IQBAL External Providers External Provider[facility] Next Contact Date: Service Request Date: Service Type: Resolution: Reviewer: Comments: Coverage Notice Reviewer: [id number] Rajinder Iqbal Notice Issued Date-Time: 12/26/2019 9:00 Notice Type: Patient Choice Letter Notice Delivered To: Family Member Relationship to Patient: Daughter Dry Roller Name: Renee Delivery Method: PHONE - Phone Jana Days: Prior Verbal Notification: Yes Recipient Understood Notice: Yes Recipient Signature: Med Rec Note Co-signed by Attending: Coverage Notice Comment: [facility] Reviewer: [id number] Rajinedr Iqbal Notice Issued Date-Time: 12/30/2019 16:03 Notice Type: Patient Choice Letter Notice Delivered To: Family Member Relationship to Patient: Son in Law Dry Roller Name: Ariel Delivery Method: HAND - Hand Delivered Jana Days: Prior Verbal Notification: Yes Recipient Understood Notice: Yes Recipient Signature: Med Rec Note Co-signed by Attending: Coverage Notice Comment: any SNF. states it is CM job to find a facility that accepts covid. Last DP export: 12/30/19 3:08 p Patient Name: DOMINIC PERALTA Page [id number] at 1646 All edits/amendments must be made on the electronic document DICTATION DATE: 12/30/191644 ANTENNA DESIGN ENGINEER: RODNEY 12/30/191644 RPT#: [id number] DC DATE: STATUS: ADM IN [facility] [address] [place] [address] END OF REPORT
--- NOTE | 2019-12-30 17:00 | MORECARE ---
CASE MANAGEMENT DISCHARGE SUMMARY PATIENT: DOMINIC PERALTA UNIT: [id number] ADM DATE: 12/24/19 AGE: 69 : 48 SEX: M ROOM/BED: D.8471 AUTHOR: CÉSAR,DOC PHYSICIAN: REFERRING PHYSICIAN: LISSETTE MCCOLLUM MD DATE OF SERVICE: 12/30/19 Discharge Plan Patient Name: DOMINIC PERALTA Facility: [facility]:[place] : 1950 Planned Disposition: Anticipated Discharge Date: Discharge Date: Expected LOS: Initial Reviewer: [id number] Initial Review Date: 12/24/2019 Generated: 12/30/19 6:00 pm Comments DCP- Discharge Planning Updated by [id number]: Luisa Iqbal on 12/30/19 3:[address] CM RECIEVED CALL FROM ARIEL DOMINIC. DOMINIC STATED CM, DR, NURSING, AND ADMINITISTRATION HAS DONE NOTHING FOR HIS FATHER. STATED HE HAD TO YELL AND SCREAM TO GET HIS MOTHER TRANSFERED, AND HE IS NOT AFRAID OF COMMING TO THE HOSPITAL TO GET HIS FATHER TRANSFERED WELL. EMIL STATED HOW [facility] WAS NOTIFIED THIS AM, AND WHAT WAS DONE TO GET PT TRANSFERED. TODAY. DOMINIC CONTINUEW TO YELL AT STATING HE DOES NOT UNDERSTAND HOW CM CAN DO NOTHING FOR HIS FATHER. STATES HE HAS A DR WHO HAS ACCEPTED HIM, BUT THE HOSPITAL WILL NOT TRANSFER HIM. EMIL STATES SHE WILL CONTINUE TO REACH OUT TO [facility] AND SOON THEY PROVIDE ACCEPTANCE AND AN AVALABLE BED HE WILL BE TRANSFERED REQUESTED. STATES THAT HE HAS NOT HAD A CONFERSATION WITH A DOCTOR IN 4 DAYS. AND WILL GO TO ADMINISTRATION IF HE HAS TOO. STATED THAT THE DR IS ROUNDING ON EVERY PATIENT AND CM WILL PROVIDE THE DR WITH HIS NUMBER. CM ATTEMPT TO PROVIDE REASSURANCE. EMIL PROVIDED DR RIZZO WITH A PHONE NUMBER TO REACH Agata KAPLAN. WHO STATES HE WILL SPEAK WITH THE FAMILY. LUISA IQBAL MSN,RN,CM DCP- Discharge Planning Updated by [id number]: Luisa Iqbal on 12/30/19 3:[address] Patient Name: DOMINIC PERALTA Admission Status: ER Accout number: [id number] Admission Date: 12-24-2019 : 1950 Admission Diagnosis:COVID-19 Attending: LISSETTE MCCOLLUM Current LOS: 6 Anticipated DC Date: Planned Disposition: Primary Insurance: MEDICARE A & B Discharge Planning Comments: Spoke with Luisa El CM who states she spoke with the family and they have provided authorization to send referrals to any facility that will accept pt with COVID. EMIL sent referrals to clinical liasons [facility], and Kimberly for [facility], and Caroline for [facility]. EMIL will continue to assist in dc planning/needs. Loom Setter Fourdrinier: Luisa Iqbal DCP- Discharge Planning Updated by [id number]: Luisa Iqbal on 12/30/19 11:[address] Patient Name: DOMINIC PERALTA Admission Status: ER Accout number: [id number] Admission Date: 12-24-2019 : 1950 Admission Diagnosis:COVID-19 Attending: LISSETTE MCCOLLUM Current LOS: 6 Anticipated DC Date: Planned Disposition: Primary Insurance: MEDICARE A & B Discharge Planning Comments: EMIL spoke with Regina from [facility] who states they are not able to accept the patient into that facility. States there is a facility in [place] who is accepting Covid positive patients at this time. CM will have Luisa CRAWFORD MGR to relay that that information to the family. Luisa Iqabl Loom Setter Fourdrinier: Luisa Iqbal DCP- Discharge Planning Updated by [id number]: Luisa Iqbal on 12/30/19 8:[address] Late Entry assessment competed at 1530 12/29/19 CM received a call from Hui at the access team at [facility] with a determination that they are unable to accept the patient because it is a lateral transfer. Hui states she has received several calls about the transfer and [facility] is unable to accept the patient, and the facility would prefer not to receive any more calls regarding this patient unless his condition deteriorates. Emil spoke with Dr. Rizzo regarding the determination. Dr. Rizzo stated he would call the family and update. Luisa Iqbal DCP- Discharge Planning Updated by [id number]: Luisa Iqbal on 12/29/19 1:[address] CM CALLED HUI AT [facility] AT [phone] ABOUT PENDING TRANSFER. SHE STATED THAT SHE HAS NOT RECIEVED THE FAX. CONFIRMED FAX NUMBER OF [phone]. SHE STATES SHE IS NOT ABLE TO RECIEVE ELECTRONIC FAXES AT THIS TIME. CM REFAXED FACE SHEET TO [phone]. CM MANUALLY FAXED CLINICALS. PROVIDED CM DIRECT LINE, AND THE NURSES STATION NUMBER IF A BED OPEN UP. LUISA IQBAL DCP- Discharge Planning Updated by [id number]: Luisa Iqbal on 12/29/19 7:[address] Patient Name: DOMINIC PERALTA Encounter No: [id number] : 1950 Primary Insurance: MEDICARE A & B Anticipated DC Date: Planned Disposition: External Planned Provider: : DCP follow-up note: CM was asked to called Pt daughter Jessica at [phone]. Cm called Jessica who was very upset. Jessica began yelling as soon as CM initiated conversation. Jessica states that her father is not being cared for. States since this hospital is not able to provide PT she fears her father will decline at a rapid rate. She demands that CM call [facility] and get him transferred to a higher level of care. CM called yard warehouse worker for update then called [facility] transfer team at [phone] and spoke to Keely CRAFT. EMIL provided clinical representation, and Keely states she will call CM for bed availability. CM will call pt family for updates as they arise. Case management will follow and assist as needed. Luisa Iqbal DCP- Discharge Planning Updated by [id number]: Ariel Strange on 12/28/19 3:[address] Patient Name: DOMINIC PERALTA Encounter No: [id number] : 1950 Primary Insurance: MEDICARE A & B Anticipated DC Date: Planned Disposition: External Planned Provider: : DCP follow-up note: TC to [facility]. [facility] states that she received fax and will contact us with placement if possible. Will continue to follow Ariel Strange DCP- Discharge Planning Updated by [id number]: Ariel Strange on 12/28/19 1:[address] Patient Name: DOMINIC PERALTA Encounter No: [id number] : 1950 Primary Insurance: MEDICARE A & B Anticipated DC Date: Planned Disposition: External Planned Provider: : DCP follow-up note: Spoke with Regina Perry who coordinates with [facility]. Regina states that the patient should be able to transfer to [facility] and has reviewed previous clinicals sent. Will traditionally fax latest progress notes and medication list per request via. Will continue to follow. Ariel Strange DCP- Discharge Planning Updated by [id number]: Luisa Iqbal on 12/27/19 5:[address] Cm spoke with Regina from [facility] who states they are looking at the clinicals. They will get back with CM with determination. Luisa Iqbal DCP- Discharge Planning Updated by [id number]: Luisa Iqbal on 12/26/19 7:[address] Patient Name: DOMINIC PERALTA Admission Status: ER Accout number: [id number] Admission Date: 12-24-2019 : 1950 Admission Diagnosis:COVID-19 Attending: LISSETTE MCCOLLUM Current LOS: 2 Anticipated DC Date: Planned Disposition: Primary Insurance: MEDICARE A & B Discharge Planning Comments: CM called pt dtr Renee at [phone] about dc planning. CM educated patient on the CM role and verbal consent given by patient to complete assessment. CM verified patient's address, phone number, and emergency contact phone numbers. Patient lives at home with his in a basement apartment at their sons house. Renee voiced concerns over her father's Parkinson's disease and the increased weakness he has. States her and her siblings may not be able to care for him upon dc. Renee mad a 3 way call with CM and her siblings so that each family member can speak about concerns. CM spoke to family about SNF, HH, PT, and private CG. Each states that their parents do not have enough money to afford private duty care. And they all need to work and are unable to provide 24 hour care. CM provided details of finding a SNF with [facility]. They stated they will think about a SNF and return a call to . Later this afternoon CM received a call from Renee stating the family is in agreement for SNF. Renee stated she called [facility] who will look at the clinical information. CM faxed clinicals to [facility] as requested. CM will continue to follow and will assist as needed with dc plans/needs. Loom Setter Fourdrinier: Luisa Iqbal DCP- Discharge Planning Updated by [id number]: Luisa Iqbal on 12/26/19 7:[address] LATE ENTRY. CONVERSATION OCCURED 12/25/19 CM RECIEVED A CALL FROM PT DAUGHTER RENEE ([phone]) WHO DEMANDS HER MOTHER AND FATHER BE SENT TO [facility] FOR A HIGHER LEVEL OF CARE. SHE STATES THEY ARE A [facility] C[facility] AND [facility] IF HER FAMILY REQUIRES IT. CM EDUCATED RENEE ON WHAT CONSTITUTES A HIGHER LEVEL OF CARE. SHE STATES SHE HAS DR AGARWAL WHO WILL ACCEPT HER AND WANTS THE AMBULANCE RIDE COVERED BY INSURANCE SINCE IT IS A HIGHER LEVEL OF CARE. CM REINFORCED THAT IT IS A LATERAL TRANSFER. THE SERVICES PROVIDED TO HER PARENTS ARE THE SAME IT WOULD BE AT [facility], AND INSURANCE WILL NOT PAY FOR TRANSPORT. 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 SHE STATES SHE IS THEIR ONLY ADVOCATE IS TERRIFIED FOR THEIR LIVES. CM PROVIDED INSTRUCTION TO WHAT [facility] IS DOING CLINICALLY FOR HER FAMILY. CM ALLOWED RENEE TO VENT HER CONCERNS, WHILE PROVIDING EMOTIONAL SUPPORT. RENEE VOICED UNDERSTANDING AND WAS THANKFUL FOR THE INFORMATION PROVIDED. SHE REQUESTS THAT THE DR CALL HER FOR UPDATES. EMIL SPOKE WITH THE NURSE PROVIDING CARE FOR THE PATIENT AND RELAYED THE REQUEST. THE NURSES STATES THAT DR MEJIA WILL CALL AFTER HE ROUNDS ON THE PATIENT TODAY. CM TO CONTINUE ASSISTING NEEDED WITH DC PLANS/NEEDS LUISA IQBAL External Providers [facility] Next Contact Date: Service Request Date: Service Type: Resolution: Reviewer: Comments: Coverage Notice Reviewer: [id number] Rajinder Iqbal Notice Issued Date-Time: 12/26/2019 9:00 Notice Type: Patient Choice Letter Notice Delivered To: Family Member Relationship to Patient: Daughter Production Control Coordinator Name: Renee Delivery Method: PHONE - Phone Jana Days: Prior Verbal Notification: Yes Recipient Understood Notice: Yes Recipient Signature: Med Rec Note Co-signed by Attending: Coverage Notice Comment: [facility] Reviewer: [id number] Rajinder Iqbal Notice Issued Date-Time: 12/30/2019 16:03 Notice Type: Patient Choice Letter Notice Delivered To: Family Member Relationship to Patient: Son in Law Production Control Coordinator Name: Ariel Delivery Method: HAND - Hand Delivered Jana Days: Prior Verbal Notification: Yes Recipient Understood Notice: Yes Recipient Signature: Med Rec Note Co-signed by Attending: Coverage Notice Comment: any SNF. states it is CM job to find a facility that accepts covid. Last DP export: 12/30/19 3:45 p Patient Name: DOMINIC PERALTA Page 27738 at 1700 All edits/amendments must be made on the electronic document DICTATION DATE: 12/30/19 170 FREELANCE DISPLAYER: RODNEY 12/30/19 1700 RPT#: [id number] DC DATE: STATUS: ADM IN [facility] [address] [place] [address] END OF REPORT
--- NOTE | 2019-12-30 17:08 | MORECARE ---
CASE MANAGEMENT DISCHARGE SUMMARY PATIENT: DOMINIC PERALTA UNIT: [id number] ADM DATE: 12/24/19 AGE: 69 : 46 SEX: M ROOM/BED: D.2131 AUTHOR: CÉSAR,DOC PHYSICIAN: REFERRING PHYSICIAN: LISSETTE MCCOLLUM MD DATE OF SERVICE: 12/30/19 Discharge Plan Patient Name: DOMINIC PERALTA Facility: [facility]:[place] : 1950 Planned Disposition: Anticipated Discharge Date: Discharge Date: Expected LOS: Initial Reviewer: [email or web address] Initial Review Date: 12/24/2019 Generated: 12/30/19 6:08 pm Comments DCP- Discharge Planning Updated by [id number]: Luisa Marshall on 12/30/19 4:[address] Late entry: 1310 CM received call from Sarah Chavez with [facility] stating she had received a call from patient's daughter about some concerns she had. CM gave report to Sarah about patient's status per today's pulmonology progress note and family medicine progress note. CM answered Sarah's questions about status of discharge planning. Explained that [facility] and [facility] have both declined patient, need to know from family what other SNF they would allow CM to refer to. 15:34 CM received second call from Sarah Chavez with [facility] stating she had spoken with the family again and they told her that they weren't going to tell CM where to send the referral to, "that's their job". Sarah instructed CM to send SNF referral anywhere. 16:[address] Rizzo who informed CM that he spoke with daughter, Jessica, who stated she spoke with someone at [facility] and she wants CM to send referral there. Stated they were going to accept patient with anticipated DC Thursday. CM called [facility]. Spoke with Cassie about referral. Faxed records as requested. Awaiting determination. DCP- Discharge Planning Updated by [email or web address]: Luisa Iqbal on 12/30/19 3:[address] CM RECIEVED CALL FROM ARIEL ALFARO. DOMINIC STATED CM, DR, NURSING, AND ADMINITISTRATION HAS DONE NOTHING FOR HIS FATHER. STATED HE HAD TO YELL AND SCREAM TO GET HIS MOTHER TRANSFERED, AND HE IS NOT AFRAID OF COMMING TO THE HOSPITAL TO GET HIS FATHER TRANSFERED WELL. CM STATED HOW [facility] WAS NOTIFIED THIS AM, AND WHAT WAS DONE TO GET PT TRANSFERED. TODAY. DOMINIC SALGADOW TO YELL AT STATING HE DOES NOT UNDERSTAND HOW CM CAN DO NOTHING FOR HIS FATHER. STATES HE HAS A DR WHO HAS ACCEPTED HIM, BUT THE HOSPITAL WILL NOT TRANSFER HIM. CM STATES SHE WILL CONTINUE TO REACH OUT TO [facility] AND SOON THEY PROVIDE ACCEPTANCE AND AN AVALABLE BED HE WILL BE TRANSFERED REQUESTED. STATES THAT HE HAS NOT HAD A CONFERSATION WITH A DOCTOR IN 4 DAYS. AND WILL GO TO ADMINISTRATION IF HE HAS TOO. STATED THAT THE DR IS ROUNDING ON EVERY PATIENT AND CM WILL PROVIDE THE DR WITH HIS NUMBER. CM ATTEMPT TO PROVIDE REASSURANCE. CM PROVIDED DR R[facility] WHO STATES HE WILL SPEAK WITH THE FAMILY. LUISA IQBAL MSN,RN,CM DCP- Discharge Planning Updated by [id number]: Luisa Iqbal on 12/30/19 3:[address] Patient Name: DOMINIC PERALTA Admission Status: ER Accout number: [id number] Admission Date: 12-24-2019 : 1950 Admission Diagnosis:COVID-19 Attending: LISSETTE MCCOLLUM Current LOS: 6 Anticipated DC Date: Planned Disposition: Primary Insurance: MEDICARE A & B Discharge Planning Comments: Spoke with Luisa El CM who states she spoke with the family and they have provided authorization to send referrals to any facility that will accept pt with COVID. CM sent referrals to clinical liasons Regina for [facility] and rehab, and Kimberly for [facility], and Caroline for [facility]. EMIL will continue to assist in dc planning/needs. Senior Abap Developer: Luisa Iqbal DCP- Discharge Planning Updated by [id number]: Luisa Iqbal on 12/30/19 11:[address] Patient Name: DOMINIC PERALTA Admission Status: ER Accout number: [id number] Admission Date: 12-24-2019 : 1950 Admission Diagnosis:COVID-19 Attending: LISSETTE MCCOLLUM Current LOS: 6 Anticipated DC Date: Planned Disposition: Primary Insurance: MEDICARE A & B Discharge Planning Comments: CM spoke with Regina from [facility] who states they are not able to accept the patient into that facility. States there is a facility in [place] who is accepting Covid positive patients at this time. EMIL will have Luisa CRAWFORD MGR to relay that that information to the family. Luisa Iqbal Senior Abap Developer: Luisa Iqbal DCP- Discharge Planning Updated by [id number]: Luisa Iqbal on 12/30/19 8:[address] Late Entry assessment competed at 1530 12/29/19 CM received a call from Hui at the access team at [facility] with a determination that they are unable to accept the patient because it is a lateral transfer. Hui states she has received several calls about the transfer and [facility] is unable to accept the patient, and the facility would prefer not to receive any more calls regarding this patient unless his condition deteriorates. Emil spoke with Dr. Rizzo regarding the determination. Dr. Rizzo stated he would call the family and update. Luisa Iqbal DCP- Discharge Planning Updated by [email or web address]: Luisa Iqbal on 12/29/19 1:[address] CM CALLED HUI AT [facility] AT [phone] ABOUT PENDING TRANSFER. SHE STATED THAT SHE HAS NOT RECIEVED THE FAX. CONFIRMED FAX NUMBER OF [phone]. SHE STATES SHE IS NOT ABLE TO RECIEVE ELECTRONIC FAXES AT THIS TIME. EMIL REFAXED FACE SHEET TO [phone]. EMIL MANUALLY FAXED CLINICALS. PROVIDED CM DIRECT LINE, AND THE NURSES STATION NUMBER IF A BED OPEN UP. LUISA IQBAL DCP- Discharge Planning Updated by [id number]: Luisa Iqbal on 12/29/19 7:[address] Patient Name: DOMINIC PERALTA Encounter No: [id number] : 1950 Primary Insurance: MEDICARE A & B Anticipated DC Date: Planned Disposition: External Planned Provider: : DCP follow-up note: EMIL was asked to called Pt daughter Jessica at [phone]. Cm called Jessica who was very upset. Jessica began yelling as soon as EMIL initiated conversation. Jessica states that her father is not being cared for. States since this hospital is not able to provide PT she fears her father will decline at a rapid rate. She demands that CM call [facility] and get him transferred to a higher level of care. CM called data warehouse consultant for update then called [facility] transfer team at [phone] and spoke to Keely CRAFT. CM provided clinical representation, and Keely states she will call CM for bed availability. CM will call pt family for updates as they arise. Case management will follow and assist as needed. Luisa Iqbal DCP- Discharge Planning Updated by [id number]: Ariel Strange on 12/28/19 3:[address] Patient Name: DOMINIC PERALTA Encounter No: [id number] : 1950 Primary Insurance: MEDICARE A & B Anticipated DC Date: Planned Disposition: External Planned Provider: : DCP follow-up note: TC to Regina. Regina states that she received fax and will contact us with placement if possible. Will continue to follow Ariel Strange DCP- Discharge Planning Updated by [email or web address]: Ariel Strange on 12/28/19 1:[address] Patient Name: DOMINIC PERALTA Encounter No: [id number] : 1950 Primary Insurance: MEDICARE A & B Anticipated DC Date: Planned Disposition: External Planned Provider: : DCP follow-up note: Spoke with Regina Perry who coordinates with [facility]. Regina states that the patient should be able to transfer to [facility] and has reviewed previous clinicals sent. Will traditionally fax latest progress notes and medication list per request via. Will continue to follow. Ariel Strange DCP- Discharge Planning Updated by [id number]: Luisa Iqbal on 12/27/19 5:[address] Cm spoke with Regina from [facility] who states they are looking at the clinicals. They will get back with CM with determination. Luisa Iqbal DCP- Discharge Planning Updated by [id number]: Luisa Iqbal on 12/26/19 7:[address] Patient Name: DOMINIC PERALTA Admission Status: ER Accout number: [id number] Admission Date: 12-24-2019 : 1950 Admission Diagnosis:COVID-19 Attending: LISSETTE MCCOLLUM Current LOS: 2 Anticipated DC Date: Planned Disposition: Primary Insurance: MEDICARE A & B Discharge Planning Comments: CM called pt dtr Renee at [phone] about dc planning. CM educated patient on the CM role and verbal consent given by patient to complete assessment. CM verified patient's address, phone number, and emergency contact phone numbers. Patient lives at home with his in a basement apartment at their sons house. Renee voiced concerns over her father's Parkinson's disease and the increased weakness he has. States her and her siblings may not be able to care for him upon dc. Renee mad a 3 way call with CM and her siblings so that each family member can speak about concerns. CM spoke to family about SNF, HH, PT, and private CG. Each states that their parents do not have enough money to afford private duty care. And they all need to work and are unable to provide 24 hour care. CM provided details of finding a SNF with [facility]. They stated they will think about a SNF and return a call to . Later this afternoon CM received a call from Renee stating the family is in agreement for SNF. Renee stated she called [facility] who will look at the clinical information. CM faxed clinicals to [facility] as requested. CM will continue to follow and will assist as needed with dc plans/needs. Senior Abap Developer: Luisa Iqbal DCP- Discharge Planning Updated by [id number]: Luisa Iqbal on 12/26/19 7:[address] LATE ENTRY. CONVERSATION OCCURED 12/25/19 CM RECIEVED A CALL FROM PT DAUGHTER RENEE ([phone]) WHO DEMANDS HER MOTHER AND FATHER BE SENT TO [facility] FOR A HIGHER LEVEL OF CARE. SHE STATES THEY ARE A [facility] AND THEY HAVE ACCESS TO [facility] IF HER FAMILY REQUIRES IT. CM EDUCATED RENEE ON WHAT CONSTITUTES A HIGHER LEVEL OF CARE. SHE STATES SHE HAS DR AGARWAL WHO WILL ACCEPT HER AND WANTS THE AMBULANCE RIDE COVERED BY INSURANCE SINCE IT IS A HIGHER LEVEL OF CARE. CM REINFORCED THAT IT IS A LATERAL TRANSFER. THE SERVICES PROVIDED TO HER PARENTS ARE THE SAME IT WOULD BE AT [facility], AND INSURANCE WILL NOT PAY FOR TRANSPORT. 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 SHE STATES SHE IS THEIR ONLY ADVOCATE IS TERRIFIED FOR THEIR LIVES. CM PROVIDED INSTRUCTION TO WHAT [facility] IS DOING CLINICALLY FOR HER FAMILY. CM ALLOWED RENEE TO VENT HER CONCERNS, WHILE PROVIDING EMOTIONAL SUPPORT. RENEE VOICED UNDERSTANDING AND WAS THANKFUL FOR THE INFORMATION PROVIDED. SHE REQUESTS THAT THE DR CALL HER FOR UPDATES. CM SPOKE WITH THE NURSE PROVIDING CARE FOR THE PATIENT AND RELAYED THE REQUEST. THE NURSES STATES THAT DR MEJIA WILL CALL AFTER HE ROUNDS ON THE PATIENT TODAY. CM TO CONTINUE ASSISTING NEEDED WITH DC PLANS/NEEDS LUISA IQBAL Coverage Notice Reviewer: [id number] - Luisa Iqbal Notice Issued Date-Time: 12/26/2019 9:00 Notice Type: Patient Choice Letter Notice Delivered To: Family Member Relationship to Patient: Daughter Aircraft Part Assembler Name: Renee Delivery Method: PHONE - Phone Jana Days: Prior Verbal Notification: Yes Recipient Understood Notice: Yes Recipient Signature: Med Rec Note Co-signed by Attending: Coverage Notice Comment: [facility] Reviewer: [id number] - Luisa Iqbal Notice Issued Date-Time: 12/30/2019 16:03 Notice Type: Patient Choice Letter Notice Delivered To: Family Member Relationship to Patient: Son in Law Aircraft Part Assembler Name: Ariel Delivery Method: HAND - Hand Delivered Jana Days: Prior Verbal Notification: Yes Recipient Understood Notice: Yes Recipient Signature: Med Rec Note Co-signed by Attending: Coverage Notice Comment: any SNF. states it is CM job to find a facility that accepts covid. Reviewer: [id number] Rajinder Marshall Notice Issued Date-Time: 12/30/2019 16:10 Notice Type: Patient Choice Letter Notice Delivered To: Other Relationship to Patient: Daughter Aircraft Part Assembler Name: Jessica Delivery Method: MAIL - Mail Jana Days: Prior Verbal Notification: Recipient Understood Notice: Recipient Signature: Med Rec Note Co-signed by Attending: Coverage Notice Comment: "Anywhere" SNF [facility] Last DP export: 12/30/19 4:00 p Patient Name: DOMINIC PERALTA Page [id number] at 1708 All edits/amendments must be made on the electronic document DICTATION DATE: 12/30/191707 FRENCH COMBER: RODNEY 12/30/191707 RPT#: [id number] DC DATE: STATUS: ADM IN [facility] [address] [place] [address] END OF REPORT
--- NOTE | 2019-12-30 18:16 | NUR ---
1130--ASSISTED PT UP TO COMMODE W/WALKER THEN INTO SHOWER--THEN TO RECLINING CHAIR IN ROOM. CONDOM CATH REPLACED W/BLUE CONDOM CATH AFTER SHOWER PT THEN SAT UP UNTIL 1500-- AT 1500 ASSISTED PT UP AND INTO BED--AGAIN REPLACED CONDOM CATH--PT TOLERATED ALL WELL.
[2019-12-30 19:00] VITALS: BP 171/85
[2019-12-31] VITALS: BP 168/80
[2019-12-31 08:34] VITALS: BP 180/87
[2019-12-31 08:44] LABS: CALC OSMOLALITY 286 mosm/kg (275-300); CALCIUM 8.6 mg/dL (8.5-10.1); CARBON DIOXIDE 29.4 mmol/L (21.0-32.0); CHLORIDE - SERUM 107 mmol/L (98-107); CREATININE - SERUM 0.9 mg/dL (0.6-1.3); MAGNESIUM - SERUM 1.9 mg/dL (1.8-2.4); PHOSPHOROUS 4.1 mg/dL (2.5-4.9); POTASSIUM - SERUM 3.6 mmol/L (3.5-5.1); SODIUM 141 mmol/L (136-145); UREA NITROGEN 23 mg/dL (7-18); eGFR NON AFRICAN AMERICAN 88 mL/min (90-120)
[2019-12-31 08:45] LABS: GLUCOSE 133 mg/dL (74-106)
[2019-12-31 12:41] VITALS: BP 163/71
--- NOTE | 2019-12-31 13:00 | NUR ---
PT UP IN CHAIR FOR LUNCH AMBULATED WITH WALKER. ASSIST X 1 AMBULATION.
[2019-12-31 17:05] VITALS: BP 171/80
--- NOTE | 2019-12-31 17:45 | NUR ---
PT UP IN CHAIR FOR DINNER SPOKE WITH DAUGHTER KETAN. BATH GIVEN WHILE UP IN CHAIR. BMX 1 AND EXTERNAL CONDOM CATHETER IN PLACE.
[2019-12-31 20:00] VITALS: BP 170/84
[2020-01-01] VITALS: BP 164/74
[2020-01-01 04:00] VITALS: BP 179/81
[2020-01-01 06:46] LABS: BASOPHILS 0.1 % (0-2); HEMATOCRIT 35.8 % (42.0-54.0); HEMOGLOBIN 11.4 g/dL (13.5-17.5); IMMATURE GRANULOCYTES 3.7 % (0-5); MCH 27.5 pg (26.0-34.0); MCHC 31.8 g/dL (31.0-37.0); MCV 86.3 fL (80.0-100.0); MEAN PLATELET VOLUME 8.4 fL (7.4-10.4); NEUTROPHILS 83.2 % (40-80); PLATELET COUNT 237 10x3/uL (130-400); RBC 4.15 10x6/uL (4.20-6.10); RDW 15.4 % (11.5-14.5)
[2020-01-01 06:55] LABS: INR 1.17 (0.85-1.17); PROTIME 14.8 SECONDS (11.6-15.0)
[2020-01-01 07:22] LABS: C-REACTIVE PROTEIN 9.4 mg/dL (0.0-0.9); CALC OSMOLALITY 289 mosm/kg (275-300); CALCIUM 8.4 mg/dL (8.5-10.1); CARBON DIOXIDE 30.4 mmol/L (21.0-32.0); CHLORIDE - SERUM 104 mmol/L (98-107); FERRITIN 178 ng/mL (3-244); MAGNESIUM - SERUM 1.9 mg/dL (1.8-2.4); PHOSPHOROUS 4.1 mg/dL (2.5-4.9); POTASSIUM - SERUM 3.4 mmol/L (3.5-5.1); SODIUM 141 mmol/L (136-145); UREA NITROGEN 22 mg/dL (7-18); eGFR NON AFRICAN AMERICAN 78 mL/min (90-120)
[2020-01-01 07:31] LABS: GLUCOSE 198 mg/dL (74-106)
--- NOTE | 2020-01-01 08:00 | NUR ---
AM MEDS GIVEN AT THIS TIME. PT A/O X4, RESP EVEN AND NONLABORED ON 2L NC. LT FA IV INFUSING NS AT KVO. MONITOR SHOWING SR WITH RATE OF 86. CONDOM CATH DRAINING YELLOW URINE TO GRAVITY. PT DENIES ANY NEEDS AT THIS TIME. CALL LIGHT IN REACH, NAD NOTED, WILL CONTINUE TO MONITOR.
[2020-01-01 08:36] VITALS: BP 172/96
[2020-01-01 12:29] VITALS: BP 163/83
--- NOTE | 2020-01-01 13:30 | NUR ---
HELPED PT TO BATHROOM AND THEN TO CHAIR. PT WANTS TO BE UP TO CHAIR FOR A WHILE. PT DENIES ANY OTHER NEEDS AT THIS TIME. CALL LIGHT IN REACH,NAD NOTED, WILL CONTINUE TO MONITOR.
[2020-01-01 17:24] VITALS: BP 160/80
[2020-01-01 18:56] VITALS: BP 160/80
--- NOTE | 2020-01-01 20:18 | NUR ---
PT REQUESTING GUSTAVO BACON. INFORMED PT PATIENT HE IS ON A DIABETIC DIET, PT STARED TO SCREAM/DEMAND "YOU WILL GET IT FOR ME".
[2020-01-02 03:54] VITALS: BP 189/84
[2020-01-02 08:02] VITALS: BP 165/79
--- NOTE | 2020-01-02 08:08 | NUR ---
AM MEDS GIVEN AT THIS TIME. SET PT UP FOR BREAKFAST, VITALS SIGNS STABLE. CONDOM CATH DRAINING YELLOW URINE TO GRAVITY. LT FA IV INFUSING NS AT KVO. VITAL SIGNS STABLE. PT DENIES ANY NEEDS AT THIS TIME. CALL LIGHT IN REACH, NAD NOTED,W ILL CONTINUE TO MONITOR.
[2020-01-02 08:22] LABS: CALC OSMOLALITY 287 mosm/kg (275-300); CALCIUM 8.4 mg/dL (8.5-10.1); CARBON DIOXIDE 31.3 mmol/L (21.0-32.0); CHLORIDE - SERUM 102 mmol/L (98-107); CREATININE - SERUM 0.9 mg/dL (0.6-1.3); GLUCOSE 201 mg/dL (74-106); MAGNESIUM - SERUM 1.9 mg/dL (1.8-2.4); PHOSPHOROUS 3.7 mg/dL (2.5-4.9); POTASSIUM - SERUM 3.4 mmol/L (3.5-5.1); SODIUM 139 mmol/L (136-145); UREA NITROGEN 23 mg/dL (7-18); eGFR NON AFRICAN AMERICAN 88 mL/min (90-120)
[2020-01-02 11:50] VITALS: BP 149/88
--- NOTE | 2020-01-02 11:51 | NUR ---
BLOOD SUGAR OF 298, 10UNITS OF INSULIN PER S/S. EMPTIED 400CC OF URINE OUT OF CONDOM CATHETER. PT DENIES ANY OTHER NEEDS AT THIS TIME. CALL LIGHT IN REACH.
--- NOTE | 2020-01-02 12:19 | NUR ---
PATIENT SISTER IN [place] TO CALL AND STATES THAT SHE CAN'T REACH HIM. I PLACED HER ON HOLD AND WENT TO CHECK ON HIM. HE IS EATING LUNCH AND I TOLD HIM THAT I NEEDED TO GOWN UP HE IS IN ISOLATION AND GET HIM THE PHONE. HE PICKED UP HIS CELL PHONE AND STATES THAT HE WILL CALL HER WHEN HE IS DONE. THIS IS RELAYED TO THE SISTER ON THE PHONE.
--- NOTE | 2020-01-02 13:10 | NUR ---
PT ON CL, ANSWERED AT THE DOOR. PT LOUDLY CUSSED AT ME AND INFROMED ME "I ASKED FOR NOSE SPRAY THIS MORNING", I INFOMRED PT I UNDERSTOOD AND THAT I WOULD FIND OUT FROM HIS NURSE WHAT WAS GOING ON. PT STATED "NO DO NOT TALK TO MY NURSE GET ME SOME DAMN NOSE SPRAY RIGHT DAMN NOW". INFROMED PT I WAS NOT HIS NURSE AND JUST SOMEONE TRYING TO HELP. PT DID N OT APPRECIATE IT. INFORMED HIS NURSE OF HIS REQUEST.
--- NOTE | 2020-01-02 13:30 | NUR ---
CLEANED PT UP FROM INCONT EPISODE. BED BATH AND COMPLETE LINED CHANGED DONE AT THIS TIME. HELPED PT TO REPOSITONED SELF IN BED. PT DENIES ANY OTHER NEEDS AT THIS TIME, CALL LIGHT IN REACH, NAD NOTED, WILL CONTINUE TO MONITOR.
--- NOTE | 2020-01-02 15:23 | NUR ---
GOT PT OFF BEDPAN AND CLEANED FROM INCONT URINE EPISODE. PT DENIES ANY OTHER NEEDS AT THIS TIME. CALL LIGHT IN REACH.
[2020-01-02 17:01] VITALS: BP 156/98
[2020-01-02 20:00] VITALS: BP 162/79
--- NOTE | 2020-01-02 22:07 | NUR ---
2030-NEW GREEN CONDOM CATH PLACED ON PT AT THIS TIME--PT TOLERATED ALL WELL. LINENS AND GOWN CHANGED--PT PULLED UP IN BED-- DENIES ANY FURTHER NEEDS.
--- NOTE | 2020-01-02 22:09 | NUR ---
0-LYING IN BED AWAKE, ALERT, ORIENTED, ELECTROLYSIS NEEDLE OPERATOR IN ROOM ASSISTING PT OFF BEDPAN AND OBTAINING VS. ALL MEDS GIVEN--GUSTAVO BACON BROUGHT TO PT/REQUEST, NO FURTHER NEEDS VOICED AT THIS TIME.
--- NOTE | 2020-01-02 22:36 | NUR ---
ASSISTED PT OFF BEDPAN--MOD BM NOTED WNL--CHANGED PT'S CONDOM CATH AGAIN--PLACED A BLUE CONDOM CATH ON PT--PT TOLERATED ALL WELL--DENIES ANY FURTHER NEEDS.
[2020-01-03] VITALS: BP 142/67
--- NOTE | 2020-01-03 00:16 | NUR ---
LYING IN BED W/EYES CLOSED, NO DISTRESS NOTED.
--- NOTE | 2020-01-03 02:52 | NUR ---
0200--PT LYING IN BED W/EYES CLOSED, NO DISTRESS NOTED
[2020-01-03 04:00] VITALS: BP 171/81
--- NOTE | 2020-01-03 05:27 | NUR ---
0420--PT LYING IN BED AWAKE, ALERT, ORIENTED--LABS OBTAINED FOR AM LAB ORDERS AT THIS TIME, PT TOLERATED ALL WELL, DENIES ANY FURTHER NEEDS.
[2020-01-03 06:09] LABS: ANION GAP 7.2 mmol/L (8-16); CALCIUM 8.2 mg/dL (8.5-10.1); CARBON DIOXIDE 33.1 mmol/L (21.0-32.0); CREATININE - SERUM 1.1 mg/dL (0.6-1.3); MAGNESIUM - SERUM 1.9 mg/dL (1.8-2.4); PHOSPHOROUS 3.8 mg/dL (2.5-4.9); POTASSIUM - SERUM 4.3 mmol/L (3.5-5.1)
--- NOTE | 2020-01-03 06:39 | NUR ---
NEW GREEN CONDOM CATH PLACED ON PT, WET PADS REMOVED FROM UNDER PT--PT TOLERATED ALL WELL, DENIES ANY FURTHER NEEDS.
--- NOTE | 2020-01-03 07:00 | NUR ---
RECEIVED REPORT. ASSUMED CARE OF PATIENT. PATIENT REMAINS IN ISOLATION FOR COVID19. REMAINS ON TELEMETRY, SR WITH RATE OF 64.
[2020-01-03 08:06] VITALS: BP 140/79
--- NOTE | 2020-01-03 09:16 | MORECARE ---
CASE MANAGEMENT DISCHARGE SUMMARY PATIENT: DOMINIC PERALTA UNIT: [id number] ADM DATE: 12/24/19 AGE: 69 : 46 SEX: M ROOM/BED: D.2130 AUTHOR: CÉSAR,DOC PHYSICIAN: REFERRING PHYSICIAN: LISSETTE MCCOLLUM MD DATE OF SERVICE: 01/03/20 Discharge Plan Patient Name: DOMINIC PERALTA Facility: [facility]:[place] : 1950 Planned Disposition: Anticipated Discharge Date: Discharge Date: Expected LOS: Initial Reviewer: [id number] Initial Review Date: 12/24/2019 Generated: 01/03/20 10:15 am Comments DCP- Discharge Planning Updated by [id number]: Luisa Iqbal on 01/03/20 8:[address] Received call from Luisa Marshall stating she received a call from pt daughter Sarah requesting a referral to IP rehab at [facility], and the patient be retested for covid. CM spoke with Arvin FISH about the covi test. CM faxed referral per request to [facility] rehab. Luisa Iqbal MSN,RN,CM DCP- Discharge Planning Updated by [id number]: Luisa Marshall on 12/30/19 4:[address] Late entry: 1310 CM received call from Sarah Chavez with [facility] stating she had received a call from patient's daughter about some concerns she had. CM gave report to Sarah about patient's status per today's pulmonology progress note and family medicine progress note. CM answered Sarah's questions about status of discharge planning. Explained that [facility] and [facility] have both declined patient, need to know from family what other SNF they would allow CM to refer to. 15:34 CM received second call from Sarah Chavez with [facility] stating she had spoken with the family again and they told her that they weren't going to tell CM where to send the referral to, "that's their job". Sarah instructed CM to send SNF referral anywhere. 16:[address] Day who informed CM that he spoke with daughter, Jessica, who stated she spoke with someone at [facility] and she wants CM to send referral there. Stated they were going to accept patient with anticipated DC Thursday. CM called [facility]. Spoke with Cassie about referral. Faxed records as requested. Awaiting determination. DCP- Discharge Planning Updated by [id number]: Luisa Iqbal on 12/30/19 3:[address] CM RECIEVED CALL FROM ARIEL DOMINIC. DOMINIC STATED CM, DR, NURSING, AND ADMINITISTRATION HAS DONE NOTHING FOR HIS FATHER. STATED HE HAD TO YELL AND SCREAM TO GET HIS MOTHER TRANSFERED, AND HE IS NOT AFRAID OF COMMING TO THE HOSPITAL TO GET HIS FATHER TRANSFERED WELL. CM STATED HOW [facility] WAS NOTIFIED THIS AM, AND WHAT WAS DONE TO GET PT TRANSFERED. TODAY. DOMINIC CONTINUEW TO YELL AT CM STATING HE DOES NOT UNDERSTAND HOW CM CAN DO NOTHING FOR HIS FATHER. STATES HE HAS A DR WHO HAS ACCEPTED HIM, BUT THE HOSPITAL WILL NOT TRANSFER HIM. CM STATES SHE WILL CONTINUE TO REACH OUT TO [facility] AND SOON THEY PROVIDE ACCEPTANCE AND AN AVALABLE BED HE WILL BE TRANSFERED REQUESTED. STATES THAT HE HAS NOT HAD A CONFERSATION WITH A DOCTOR IN 4 DAYS. AND WILL GO TO ADMINISTRATION IF HE HAS TOO. STATED THAT THE DR IS ROUNDING ON EVERY PATIENT AND CM WILL PROVIDE THE DR WITH HIS NUMBER. CM ATTEMPT TO PROVIDE REASSURANCE. CM PROVIDED DR DAY WITH A PHONE NUMBER TO REACH [facility]FOR UPDATE. WHO STATES HE WILL SPEAK WITH THE FAMILY. LUISA IQBAL MSN,RN,CM DCP- Discharge Planning Updated by [email or web address]: Luisa Iqbal on 12/30/19 3:[address] Patient Name: DOMINIC PERALTA Admission Status: ER Accout number: [id number] Admission Date: 12-24-2019 : 1950 Admission Diagnosis:COVID-19 Attending: LISSETTE MCCOLLUM Current LOS: 6 Anticipated DC Date: Planned Disposition: Primary Insurance: MEDICARE A & B Discharge Planning Comments: Spoke with Luisa El CM who states she spoke with the family and they have provided authorization to send referrals to any facility that will accept pt with COVID. EMIL sent referrals to clinical liasons Regina for [facility] and rehab, and Kimberly for [facility], and Caroline for [facility]. EMIL will continue to assist in dc planning/needs. Assignment Desk Assistant: Luisa Iqbal DCP- Discharge Planning Updated by [email or web address]: Luisa Iqbal on 12/30/19 11:[address] Patient Name: DOMINIC PERALTA Admission Status: ER Accout number: [id number] Admission Date: 12-24-2019 : 1950 Admission Diagnosis:COVID-19 Attending: LISSETTE MCCOLLUM Current LOS: 6 Anticipated DC Date: Planned Disposition: Primary Insurance: MEDICARE A & B Discharge Planning Comments: EMIL spoke with Regina nina [facility] who states they are not able to accept the patient into that facility. States there is a facility in [place] who is accepting Covid positive patients at this time. CM will have Luisa CRAWFORD MGR to relay that that information to the family. Luisa Iqbal Assignment Desk Assistant: Luisa Iqbal DCP- Discharge Planning Updated by [email or web address]: Luisa Iqbal on 12/30/19 8:[address] Late Entry assessment competed at 1530 12/29/19 CM received a call from Hui at the access team at [facility] with a determination that they are unable to accept the patient because it is a lateral transfer. Hui states she has received several calls about the transfer and [facility] is unable to accept the patient, and the facility would prefer not to receive any more calls regarding this patient unless his condition deteriorates. Emil spoke with Dr. Day regarding the determination. Dr. Day stated he would call the family and update. Luisa Iqbal DCP- Discharge Planning Updated by [id number]: Luisa Iqbal on 12/29/19 1:[address] CM CALLED HUI AT [facility] AT [phone] ABOUT PENDING TRANSFER. SHE STATED THAT SHE HAS NOT RECIEVED THE FAX. CONFIRMED FAX NUMBER OF [phone]. SHE STATES SHE IS NOT ABLE TO RECIEVE ELECTRONIC FAXES AT THIS TIME. CM REFAXED FACE SHEET TO [phone]. CM MANUALLY FAXED CLINICALS. PROVIDED CM DIRECT LINE, AND THE NURSES STATION NUMBER IF A BED OPEN UP. LUISA IQBAL DCP- Discharge Planning Updated by [id number]: Luisa Iqbal on 12/29/19 7:[address] Patient Name: DOMINIC PERALTA Encounter No: [id number] : 1950 Primary Insurance: MEDICARE A & B Anticipated DC Date: Planned Disposition: External Planned Provider: : DCP follow-up note: CM was asked to called Pt daughter Jessica at [phone]. Cm called Jessica who was very upset. Jessica began yelling as soon as CM initiated conversation. Jessica states that her father is not being cared for. States since this hospital is not able to provide PT she fears her father will decline at a rapid rate. She demands that CM call [facility] and get him transferred to a higher level of care. CM called warehouse distribution associate for update then called [facility] transfer team at [phone] and spoke to Keely CRAFT. EMIL provided clinical representation, and Keely states she will call CM for bed availability. CM will call pt family for updates as they arise. Case management will follow and assist as needed. Luisa Iqbal DCP- Discharge Planning Updated by [email or web address]: Ariel Strange on 12/28/19 3:[address] Patient Name: DOMINIC PERALTA Encounter No: [id number] : 1950 Primary Insurance: MEDICARE A & B Anticipated DC Date: Planned Disposition: External Planned Provider: : DCP follow-up note: TC to Regina. Regina states that she received fax and will contact us with placement if possible. Will continue to follow Ariel Strange DCP- Discharge Planning Updated by [id number]: Ariel Strange on 12/28/19 1:[address] Patient Name: DOMINIC PERALTA Encounter No: [id number] : 1950 Primary Insurance: MEDICARE A & B Anticipated DC Date: Planned Disposition: External Planned Provider: : DCP follow-up note: Spoke with Regina Perry who coordinates with [facility]. Regina states that the patient should be able to transfer to [facility] and has reviewed previous clinicals sent. Will traditionally fax latest progress notes and medication list per request via. Will continue to follow. Ariel Strange DCP- Discharge Planning Updated by [id number]: Luisa Iqbal on 12/27/19 5:[address] Cm spoke with Regina from [facility] who states they are looking at the clinicals. They will get back with CM with determination. Luisa Iqbal DCP- Discharge Planning Updated by [id number]: Luisa Iqbal on 12/26/19 7:[address] Patient Name: DOMINIC PERALTA Admission Status: ER Accout number: [id number] Admission Date: 12-24-2019 : 1950 Admission Diagnosis:COVID-19 Attending: LISSETTE MCCOLLUM Current LOS: 2 Anticipated DC Date: Planned Disposition: Primary Insurance: MEDICARE A & B Discharge Planning Comments: CM called pt dtr Renee at [phone] about dc planning. CM educated patient on the CM role and verbal consent given by patient to complete assessment. CM verified patient's address, phone number, and emergency contact phone numbers. Patient lives at home with his in a basement apartment at their sons house. Renee voiced concerns over her father's Parkinson's disease and the increased weakness he has. States her and her siblings may not be able to care for him upon dc. Renee mad a 3 way call with CM and her siblings so that each family member can speak about concerns. CM spoke to family about SNF, HH, PT, and private CG. Each states that their parents do not have enough money to afford private duty care. And they all need to work and are unable to provide 24 hour care. CM provided details of finding a SNF with [facility]. They stated they will think about a SNF and return a call to CM. Later this afternoon CM received a call from Renee stating the family is in agreement for SNF. Renee stated she called [facility] who will look at the clinical information. CM faxed clinicals to [facility] as requested. CM will continue to follow and will assist as needed with dc plans/needs. Assignment Desk Assistant: Luisa Iqbal DCP- Discharge Planning Updated by [id number]: Luisa Iqbal on 12/26/19 7:[address] LATE ENTRY. CONVERSATION OCCURED 12/25/19 CM RECIEVED A CALL FROM PT DAUGHTER RENEE ([phone]) WHO DEMANDS HER MOTHER AND FATHER BE SENT TO [facility] FOR A HIGHER LEVEL OF CARE. SHE STATES THEY ARE A [facility] AND THEY HAVE ACCESS TO [facility] IF HER FAMILY REQUIRES IT. CM EDUCATED RENEE ON WHAT CONSTITUTES A HIGHER LEVEL OF CARE. SHE STATES SHE HAS DR AGARWAL WHO WILL ACCEPT HER AND WANTS THE AMBULANCE RIDE COVERED BY INSURANCE SINCE IT IS A HIGHER LEVEL OF CARE. CM REINFORCED THAT IT IS A LATERAL TRANSFER. THE SERVICES PROVIDED TO HER PARENTS ARE THE SAME IT WOULD BE AT [facility], AND INSURANCE WILL NOT PAY FOR TRANSPORT. 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 SHE STATES SHE IS THEIR ONLY ADVOCATE IS TERRIFIED FOR THEIR LIVES. CM PROVIDED INSTRUCTION TO WHAT [facility] IS DOING CLINICALLY FOR HER FAMILY. CM ALLOWED RENEE TO VENT HER CONCERNS, WHILE PROVIDING EMOTIONAL SUPPORT. RENEE VOICED UNDERSTANDING AND WAS THANKFUL FOR THE INFORMATION PROVIDED. SHE REQUESTS THAT THE DR CALL HER FOR UPDATES. CM SPOKE WITH THE NURSE PROVIDING CARE FOR THE PATIENT AND RELAYED THE REQUEST. THE NURSES STATES THAT DR MEJIA WILL CALL AFTER HE ROUNDS ON THE PATIENT TODAY. CM TO CONTINUE ASSISTING NEEDED WITH DC PLANS/NEEDS LUISA IQBAL Coverage Notice Reviewer: [id number] Rajinder Iqbal Notice Issued Date-Time: 12/26/2019 9:00 Notice Type: Patient Choice Letter Notice Delivered To: Family Member Relationship to Patient: Daughter Fitness Coach Name: Renee Delivery Method: PHONE - Phone Jana Days: Prior Verbal Notification: Yes Recipient Understood Notice: Yes Recipient Signature: Med Rec Note Co-signed by Attending: Coverage Notice Comment: [facility] re[facility] Reviewer: [id number] Rajinder Iqbal Notice Issued Date-Time: 12/30/2019 16:03 Notice Type: Patient Choice Letter Notice Delivered To: Family Member Relationship to Patient: Son in Law Fitness Coach Name: Ariel Delivery Method: HAND - Hand Delivered Jana Days: Prior Verbal Notification: Yes Recipient Understood Notice: Yes Recipient Signature: Med Rec Note Co-signed by Attending: Coverage Notice Comment: any SNF. states it is CM job to find a facility that accepts covid. Reviewer: [id number] Rajinder Marshall Notice Issued Date-Time: 12/30/2019 16:10 Notice Type: Patient Choice Letter Notice Delivered To: Other Relationship to Patient: Daughter Fitness Coach Name: Jessica Delivery Method: MAIL - Mail Jana Days: Prior Verbal Notification: Recipient Understood Notice: Recipient Signature: Med Rec Note Co-signed by Attending: Coverage Notice Comment: "Anywhere" SNF [facility] Reviewer: [id number] - Luisa Edds Notice Issued Date-Time: 01/03/2020 9:00 Notice Type: Patient Choice Letter Notice Delivered To: Family Member Relationship to Patient: Daughter Fitness Coach Name: Renee Delivery Method: PHONE - Phone Jana Days: Prior Verbal Notification: Yes Recipient Understood Notice: Yes Recipient Signature: Med Rec Note Co-signed by Attending: Coverage Notice Comment: IP rehab at [facility] Last DP export: 12/30/19 4:08 p Patient Name: DOMINIC PERALTA Page [id number] at 0916 All edits/amendments must be made on the electronic document DICTATION DATE: 01/03/20914 PRODUCTION SPECIALIST: RODNEY 01/03/20914 RPT#: [id number] DC DATE: STATUS: ADM IN [facility] [address] [place] [address] END OF REPORT
--- NOTE | 2020-01-03 09:23 | MORECARE ---
CASE MANAGEMENT DISCHARGE SUMMARY PATIENT: DOMINIC PERALTA UNIT: [id number] ADM DATE: 12/24/19 AGE: 69 : 46 SEX: M ROOM/BED: D.2130 AUTHOR: CÉSAR,DOC PHYSICIAN: REFERRING PHYSICIAN: LISSETTE MCCOLLUM MD DATE OF SERVICE: 01/03/20 Discharge Plan Patient Name: DOMINIC PERALTA Facility: [facility]:[place] : 1950 Planned Disposition: Anticipated Discharge Date: Discharge Date: Expected LOS: Initial Reviewer: [id number] Initial Review Date: 12/24/2019 Generated: 01/03/20 10:22 am Comments DCP- Discharge Planning Updated by [id number]: Luisa Iqbal on 01/03/20 8:[address] CM attempted to call [facility] rehab at [phone] for referral. CM unable to reach at this time. Will continue to reach out per request. Luisa Iqbal DCP- Discharge Planning Updated by [id number]: Luisa Iqbal on 01/03/20 8:[address] Received call from Luisa Marshall stating she received a call from pt daughter Sarah requesting a referral to IP rehab at [facility], and the patient be retested for covid. CM spoke with Arvin FISH about the covi test. CM faxed referral per request to [facility] rehab. Luisa Iqbal MSN,RN,CM DCP- Discharge Planning Updated by [email or web address]: Luisa Marshall on 12/30/19 4:[address] Late entry: 1310 CM received call from Sarah Chavez with [facility] stating she had received a call from patient's daughter about some concerns she had. CM gave report to Sarah about patient's status per today's pulmonology progress note and family medicine progress note. CM answered Sarah's questions about status of discharge planning. Explained that [facility] and [facility] have both declined patient, need to know from family what other SNF they would allow CM to refer to. 15:34 CM received second call from Sarah Chavez with [facility] stating she had spoken with the family again and they told her that they weren't going to tell CM where to send the referral to, "that's their job". Sarah instructed CM to send SNF referral anywhere. 16:[address] Day who informed CM that he spoke with daughter, Jessica, who stated she spoke with someone at [facility] and she wants CM to send referral there. Stated they were going to accept patient with anticipated DC Thursday. CM called [facility]. Spoke with Cassie about referral. Faxed records as requested. Awaiting determination. DCP- Discharge Planning Updated by [id number]: Luisa Iqbal on 12/30/19 3:[address] CM RECIEVED CALL FROM ARIEL ALFARO. DOMINIC STATED CM, DR, NURSING, AND ADMINITISTRATION HAS DONE NOTHING FOR HIS FATHER. STATED HE HAD TO YELL AND SCREAM TO GET HIS MOTHER TRANSFERED, AND HE IS NOT AFRAID OF COMMING TO THE HOSPITAL TO GET HIS FATHER TRANSFERED WELL. CM STATED HOW [facility] WAS NOTIFIED THIS AM, AND WHAT WAS DONE TO GET PT TRANSFERED. TODAY. DOMINIC CONTINUEW TO YELL AT STATING HE DOES NOT UNDERSTAND HOW CM CAN DO NOTHING FOR HIS FATHER. STATES HE HAS A DR WHO HAS ACCEPTED HIM, BUT THE HOSPITAL WILL NOT TRANSFER HIM. CM STATES SHE WILL CONTINUE TO REACH OUT TO [facility] AND SOON THEY PROVIDE ACCEPTANCE AND AN AVALABLE BED HE WILL BE TRANSFERED REQUESTED. STATES THAT HE HAS NOT HAD A CONFERSATION WITH A DOCTOR IN 4 DAYS. AND WILL GO TO ADMINISTRATION IF HE HAS TOO. STATED THAT THE DR IS ROUNDING ON EVERY PATIENT AND CM WILL PROVIDE THE DR WITH HIS NUMBER. CM ATTEMPT TO PROVIDE REASSURANCE. CM PROVIDED DR DAY WITH A PHONE NUMBER TO REACH Agata KAPLAN. WHO STATES HE WILL SPEAK WITH THE FAMILY. LUISA IQBAL MSN,RN,CM DCP- Discharge Planning Updated by [id number]: Luisa Iqbal on 12/30/19 3:[address] Patient Name: DOMINIC PERALTA Admission Status: ER Accout number: [id number] Admission Date: 12-24-2019 : 1950 Admission Diagnosis:COVID-19 Attending: LISSETTE MCCOLLUM Current LOS: 6 Anticipated DC Date: Planned Disposition: Primary Insurance: MEDICARE A & B Discharge Planning Comments: Spoke with Luisa El CM who states she spoke with the family and they have provided authorization to send referrals to any facility that will accept pt with COVID. EMIL sent referrals to clinical liasons Regina for [facility], and Kimberly for [facility], and Caroline for [facility]. EMIL will continue to assist in dc planning/needs. Copper Miner: Luisa Iqbal DCP- Discharge Planning Updated by [id number]: Luisa Iqbal on 12/30/19 11:[address] Patient Name: DOMINIC PERALTA Admission Status: ER Accout number: [id number] Admission Date: 12-24-2019 : 1950 Admission Diagnosis:COVID-19 Attending: LISSETTE MCCOLLUM Current LOS: 6 Anticipated DC Date: Planned Disposition: Primary Insurance: MEDICARE A & B Discharge Planning Comments: EMIL spoke with Regina from [facility] who states they are not able to accept the patient into that facility. States there is a facility in [place] who is accepting Covid positive patients at this time. CM will have Luisa CRAWFORD MGR to relay that that information to the family. Luisa Iqbal Copper Miner: Luisa Iqbal DCP- Discharge Planning Updated by [email or web address]: Luisa Iqbal on 12/30/19 8:[address] Late Entry assessment competed at 1530 12/29/19 CM received a call from Hui at the access team at [facility] with a determination that they are unable to accept the patient because it is a lateral transfer. Hui states she has received several calls about the transfer and [facility] is unable to accept the patient, and the facility would prefer not to receive any more calls regarding this patient unless his condition deteriorates. Emil spoke with Dr. Day regarding the determination. Dr. Day stated he would call the family and update. Luisa Iqbal DCP- Discharge Planning Updated by [id number]: Luisa Iqbal on 12/29/19 1:[address] CM CALLED HUI AT [facility] AT [phone] ABOUT PENDING TRANSFER. SHE STATED THAT SHE HAS NOT RECIEVED THE FAX. CONFIRMED FAX NUMBER OF [phone]. SHE STATES SHE IS NOT ABLE TO RECIEVE ELECTRONIC FAXES AT THIS TIME. CM REFAXED FACE SHEET TO [phone]. CM MANUALLY FAXED CLINICALS. PROVIDED CM DIRECT LINE, AND THE NURSES STATION NUMBER IF A BED OPEN UP. LUISA EDDS DCP- Discharge Planning Updated by [email or web address]: Luisa Sarbjit on 12/29/19 7:[address] Patient Name: DOMINIC PERALTA Encounter No: [id number] : 1950 Primary Insurance: MEDICARE A & B Anticipated DC Date: Planned Disposition: External Planned Provider: : DCP follow-up note: CM was asked to called Pt daughter Jessica at [phone]. Cm called Jessica who was very upset. Jessica began yelling as soon as CM initiated conversation. Jessica states that her father is not being cared for. States since this hospital is not able to provide PT she fears her father will decline at a rapid rate. She demands that CM call [facility] and get him transferred to a higher level of care. CM called warehouse administrative assistant for update then called [facility] transfer team at [phone] and spoke to Keely CRAFT. CM provided clinical representation, and Keely states she will call CM for bed availability. CM will call pt family for updates as they arise. Case management will follow and assist as needed. Luisa Edds DCP- Discharge Planning Updated by [id number]: Ariel Strange on 12/28/19 3:[address] Patient Name: DOMINIC PERALTA Encounter No: [id number] : 1950 Primary Insurance: MEDICARE A & B Anticipated DC Date: Planned Disposition: External Planned Provider: : DCP follow-up note: TC to Regina. Regina states that she received fax and will contact us with placement if possible. Will continue to follow Ariel Strange DCP- Discharge Planning Updated by [id number]: Ariel Strange on 12/28/19 1:[address] Patient Name: DOMINIC PERALTA Encounter No: [id number] : 1950 Primary Insurance: MEDICARE A & B Anticipated DC Date: Planned Disposition: External Planned Provider: : DCP follow-up note: Spoke with Regina Perry who coordinates with [facility]. Regina states that the patient should be able to transfer to [facility] and has reviewed previous clinicals sent. Will traditionally fax latest progress notes and medication list per request via. Will continue to follow. Ariel Strange DCP- Discharge Planning Updated by [email or web address]: Luisa Iqbal on 12/27/19 5:[address] Cm spoke with Regina from [facility] who states they are looking at the clinicals. They will get back with CM with determination. Luisa Iqbal DCP- Discharge Planning Updated by [id number]: Luisa Iqbal on 12/26/19 7:[address] Patient Name: DOMINIC PERALTA Admission Status: ER Accout number: [id number] Admission Date: 12-24-2019 : 1950 Admission Diagnosis:COVID-19 Attending: LISSETTE MCCOLLUM Current LOS: 2 Anticipated DC Date: Planned Disposition: Primary Insurance: MEDICARE A & B Discharge Planning Comments: CM called pt dtr Renee at [phone] about dc planning. CM educated patient on the CM role and verbal consent given by patient to complete assessment. CM verified patient's address, phone number, and emergency contact phone numbers. Patient lives at home with his in a basement apartment at their sons house. Renee voiced concerns over her father's Parkinson's disease and the increased weakness he has. States her and her siblings may not be able to care for him upon dc. Renee mad a 3 way call with CM and her siblings so that each family member can speak about concerns. CM spoke to family about SNF, HH, PT, and private CG. Each states that their parents do not have enough money to afford private duty care. And they all need to work and are unable to provide 24 hour care. CM provided details of finding a SNF with [facility]. They stated they will think about a SNF and return a call to CM. Later this afternoon CM received a call from Renee stating the family is in agreement for SNF. Renee stated she called [facility] who will look at the clinical information. CM faxed clinicals to [facility] as requested. CM will continue to follow and will assist as needed with dc plans/needs. Copper Miner: Luisa Iqbal DCP- Discharge Planning Updated by [id number]: Luisa Iqbal on 12/26/19 7:[address] LATE ENTRY. CONVERSATION OCCURED 9/20/20 CM RECIEVED A CALL FROM PT DAUGHTER RENEE ([phone]) WHO DEMANDS HER MOTHER AND FATHER BE SENT TO [facility] FOR A HIGHER LEVEL OF CARE. SHE STATES THEY ARE A L[facility]EL [facility] T[facility]MENT CENTER AND THEY HAVE ACCESS TO [facility] IF HER FAMILY REQUIRES IT. CM EDUCATED RENEE ON WHAT CONSTITUTES A HIGHER LEVEL OF CARE. SHE STATES SHE HAS DR AGARAWL WHO WILL ACCEPT HER AND WANTS THE AMBULANCE RIDE COVERED BY INSURANCE SINCE IT IS A HIGHER LEVEL OF CARE. CM REINFORCED THAT IT IS A LATERAL TRANSFER. THE SERVICES PROVIDED TO HER PARENTS ARE THE SAME IT WOULD BE AT [facility], AND INSURANCE WILL NOT PAY FOR TRANSPORT. 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 SHE STATES SHE IS THEIR ONLY ADVOCATE IS TERRIFIED FOR THEIR LIVES. CM PROVIDED INSTRUCTION TO WHAT [facility] IS DOING CLINICALLY FOR HER FAMILY. CM ALLOWED RENEE TO VENT HER CONCERNS, WHILE PROVIDING EMOTIONAL SUPPORT. RENEE VOICED UNDERSTANDING AND WAS THANKFUL FOR THE INFORMATION PROVIDED. SHE REQUESTS THAT THE DR CALL HER FOR UPDATES. EMIL SPOKE WITH THE NURSE PROVIDING CARE FOR THE PATIENT AND RELAYED THE REQUEST. THE NURSES STATES THAT DR MEJIA WILL CALL AFTER HE ROUNDS ON THE PATIENT TODAY. CM TO CONTINUE ASSISTING NEEDED WITH DC PLANS/NEEDS LUISA IQBAL Coverage Notice Reviewer: [id number] - Luisa Iqbal Notice Issued Date-Time: 01/03/2020 9:00 Notice Type: Patient Choice Letter Notice Delivered To: Family Member Relationship to Patient: Daughter Grout Machine Operator Name: Renee Delivery Method: PHONE - Phone Jana Days: Prior Verbal Notification: Yes Recipient Understood Notice: Yes Recipient Signature: Med Rec Note Co-signed by Attending: Coverage Notice Comment: IP rehab at [place] Reviewer: [id number] Rajinder Iqbal Notice Issued Date-Time: 12/26/2019 9:00 Notice Type: Patient Choice Letter Notice Delivered To: Family Member Relationship to Patient: Daughter Grout Machine Operator Name: Renee Delivery Method: PHONE - Phone Jana Days: Prior Verbal Notification: Yes Recipient Understood Notice: Yes Recipient Signature: Med Rec Note Co-signed by Attending: Coverage Notice Comment: [facility] Reviewer: [id number] Rajinder Marshall Notice Issued Date-Time: 12/30/2019 16:10 Notice Type: Patient Choice Letter Notice Delivered To: Other Relationship to Patient: Daughter Grout Machine Operator Name: Jessica Delivery Method: MAIL - Mail Jana Days: Prior Verbal Notification: Recipient Understood Notice: Recipient Signature: Med Rec Note Co-signed by Attending: Coverage Notice Comment: "Anywhere" SNF [facility] Reviewer: [id number] Rajinder Iqbal Notice Issued Date-Time: 12/30/2019 16:03 Notice Type: Patient Choice Letter Notice Delivered To: Family Member Relationship to Patient: Son in Law Grout Machine Operator Name: Areil Delivery Method: HAND - Hand Delivered Jana Days: Prior Verbal Notification: Yes Recipient Understood Notice: Yes Recipient Signature: Med Rec Note Co-signed by Attending: Coverage Notice Comment: any SNF. states it is CM job to find a facility that accepts covid. Last DP export: 01/03/20 8:16 a Patient Name: DOMINIC PERALTA Page [id number] at 0923 All edits/amendments must be made on the electronic document DICTATION DATE: 01/03/20921 ASSISTANT UNIT FORESTER: RODNEY 01/03/20921 RPT#: [id number] DC DATE: STATUS: ADM IN [facility] [address] [place] [address] END OF REPORT
--- NOTE | 2020-01-03 10:02 | MORECARE ---
CASE MANAGEMENT DISCHARGE SUMMARY PATIENT: DOMINIC PERALTA UNIT: [id number] ADM DATE: 12/24/19 AGE: 69 : 46 SEX: M ROOM/BED: D.2139 AUTHOR: CÉSAR,DOC PHYSICIAN: REFERRING PHYSICIAN: LISSETTE MCCOLLUM MD DATE OF SERVICE: 01/03/20 Discharge Plan Patient Name: DOMINIC PERALTA Facility: [facility]:[place] : 1950 Planned Disposition: Anticipated Discharge Date: Discharge Date: Expected LOS: Initial Reviewer: [id number] Initial Review Date: 12/24/2019 Generated: 01/03/20 11:01 am Comments DCP- Discharge Planning Updated by [email or web address]: Luisa Iqbal on 01/03/20 8:[address] CM attempted to call [facility] at [phone] for referral. CM unable to reach at this time. Will continue to reach out per request. Luisa Iqbal DCP- Discharge Planning Updated by [id number]: Luisa Iqbal on 01/03/20 8:[address] Received call from Luisa Marshall stating she received a call from pt daughter Sarah requesting a referral to IP rehab at [facility], and the patient be retested for covid. CM spoke with Arvin FISH about the covi test. CM faxed referral per request to [facility]. Luisa Iqbal MSN,RN,CM DCP- Discharge Planning Updated by [email or web address]: Luisa Marshall on 12/30/19 4:[address] Late entry: 1310 CM received call from Sarah Chavez with [facility] stating she had received a call from patient's daughter about some concerns she had. CM gave report to Sarah about patient's status per today's pulmonology progress note and family medicine progress note. CM answered Sarah's questions about status of discharge planning. Explained that [facility] and [facility] have both declined patient, need to know from family what other SNF they would allow CM to refer to. 15:34 CM received second call from Sarah Chavez with [facility] stating she had spoken with the family again and they told her that they weren't going to tell CM where to send the referral to, "that's their job". Sarah instructed CM to send SNF referral anywhere. 16:[address] Day who informed CM that he spoke with daughter, Jessica, who stated she spoke with someone at [facility] and she wants CM to send referral there. Stated they were going to accept patient with anticipated DC Thursday. CM called [facility]. Spoke with Cassie about referral. Faxed records as requested. Awaiting determination. DCP- Discharge Planning Updated by [id number]: Luisa Iqbal on 12/30/19 3:[address] CM RECIEVED CALL FROM ARIEL ALFARO. DOMINIC STATED CM, DR, NURSING, AND ADMINITISTRATION HAS DONE NOTHING FOR HIS FATHER. STATED HE HAD TO YELL AND SCREAM TO GET HIS MOTHER TRANSFERED, AND HE IS NOT AFRAID OF COMMING TO THE HOSPITAL TO GET HIS FATHER TRANSFERED WELL. CM STATED HOW [facility] WAS NOTIFIED THIS AM, AND WHAT WAS DONE TO GET PT TRANSFERED. TODAY. DOMINIC CONTINUEW TO YELL AT STATING HE DOES NOT UNDERSTAND HOW CM CAN DO NOTHING FOR HIS FATHER. STATES HE HAS A DR WHO HAS ACCEPTED HIM, BUT THE HOSPITAL WILL NOT TRANSFER HIM. CM STATES SHE WILL CONTINUE TO REACH OUT TO [facility] AND SOON THEY PROVIDE ACCEPTANCE AND AN AVALABLE BED HE WILL BE TRANSFERED REQUESTED. STATES THAT HE HAS NOT HAD A CONFERSATION WITH A DOCTOR IN 4 DAYS. AND WILL GO TO ADMINISTRATION IF HE HAS TOO. STATED THAT THE DR IS ROUNDING ON EVERY PATIENT AND CM WILL PROVIDE THE DR WITH HIS NUMBER. CM ATTEMPT TO PROVIDE REASSURANCE. CM PROVIDED DR DAY WITH A PHONE NUMBER TO REACH Agata KAPLAN. WHO STATES HE WILL SPEAK WITH THE FAMILY. LUISA IQBAL MSN,RN,CM DCP- Discharge Planning Updated by [id number]: Luisa Iqbal on 12/30/19 3:[address] Patient Name: DOMINIC PERALTA Admission Status: ER Accout number: [id number] Admission Date: 12-24-2019 : 1950 Admission Diagnosis:COVID-19 Attending: LISSETTE MCCOLLUM Current LOS: 6 Anticipated DC Date: Planned Disposition: Primary Insurance: MEDICARE A & B Discharge Planning Comments: Spoke with Luisa El CM who states she spoke with the family and they have provided authorization to send referrals to any facility that will accept pt with COVID. EMIL sent referrals to clinical liasons Regina for [facility], and Kimberly for [facility], and Caroline for [facility]. EMIL will continue to assist in dc planning/needs. Chummer: Luisa Iqbal DCP- Discharge Planning Updated by [id number]: Luisa Iqbal on 12/30/19 11:[address] Patient Name: DOMINIC PERALTA Admission Status: ER Accout number: [id number] Admission Date: 12-24-2019 : 1950 Admission Diagnosis:COVID-19 Attending: LISSETTE MCCOLLUM Current LOS: 6 Anticipated DC Date: Planned Disposition: Primary Insurance: MEDICARE A & B Discharge Planning Comments: EMIL spoke with Regina from [facility] who states they are not able to accept the patient into that facility. States there is a facility in [place] who is accepting Covid positive patients at this time. CM will have Luisa CRAWFORD MGR to relay that that information to the family. Luisa Iqbal Chummer: Luisa Iqbal DCP- Discharge Planning Updated by [id number]: Luisa Iqbal on 12/30/19 8:[address] Late Entry assessment competed at 1530 12/29/19 CM received a call from Hiu at the access team at [facility] with a determination that they are unable to accept the patient because it is a lateral transfer. Hui states she has received several calls about the transfer and [facility] is unable to accept the patient, and the facility would prefer not to receive any more calls regarding this patient unless his condition deteriorates. Emil spoke with Dr. Day regarding the determination. Dr. Day stated he would call the family and update. Luisa Iqbal DCP- Discharge Planning Updated by [id number]: Luisa Iqbal on 12/29/19 1:[address] CM CALLED HUI AT [facility] AT [phone] ABOUT PENDING TRANSFER. SHE STATED THAT SHE HAS NOT RECIEVED THE FAX. CONFIRMED FAX NUMBER OF [phone]. SHE STATES SHE IS NOT ABLE TO RECIEVE ELECTRONIC FAXES AT THIS TIME. CM REFAXED FACE SHEET TO [phone]. CM MANUALLY FAXED CLINICALS. PROVIDED CM DIRECT LINE, AND THE NURSES STATION NUMBER IF A BED OPEN UP. LUISA EDDS DCP- Discharge Planning Updated by [id number]: Luisa Sarbjit on 12/29/19 7:[address] Patient Name: DOMINIC PERALTA Encounter No: [id number] : 1950 Primary Insurance: MEDICARE A & B Anticipated DC Date: Planned Disposition: External Planned Provider: : DCP follow-up note: CM was asked to called Pt daughter Jessica at [phone]. Cm called Jessica who was very upset. Jessica began yelling as soon as CM initiated conversation. Jessica states that her father is not being cared for. States since this hospital is not able to provide PT she fears her father will decline at a rapid rate. She demands that CM call [facility] and get him transferred to a higher level of care. CM called warehouse puller for update then called [facility] transfer team at [phone] and spoke to Keely CRAFT. CM provided clinical representation, and Keely states she will call CM for bed availability. CM will call pt family for updates as they arise. Case management will follow and assist as needed. Luisa Edds DCP- Discharge Planning Updated by [id number]: Ariel Strange on 12/28/19 3:[address] Patient Name: DOMINIC PERALTA Encounter No: [id number] : 1950 Primary Insurance: MEDICARE A & B Anticipated DC Date: Planned Disposition: External Planned Provider: : DCP follow-up note: TC to [facility]. [facility]ina states that she received fax and will contact us with placement if possible. Will continue to follow Ariel Strange DCP- Discharge Planning Updated by [id number]: Ariel Strange on 12/28/19 1:[address] Patient Name: DOMINIC PERALTA Encounter No: [id number] : 1950 Primary Insurance: MEDICARE A & B Anticipated DC Date: Planned Disposition: External Planned Provider: : DCP follow-up note: Spoke with Regina Perry who coordinates with [facility]. Regina states that the patient should be able to transfer to [facility] and has reviewed previous clinicals sent. Will traditionally fax latest progress notes and medication list per request via. Will continue to follow. Ariel Strange DCP- Discharge Planning Updated by [id number]: Luisa Iqbal on 12/27/19 5:[address] Cm spoke with Regina from [facility] who states they are looking at the clinicals. They will get back with CM with determination. Luisa Iqbal DCP- Discharge Planning Updated by [id number]: Luisa Iqbal on 12/26/19 7:[address] Patient Name: DOMINIC PERALTA Admission Status: ER Accout number: [id number] Admission Date: 12-24-2019 : 1950 Admission Diagnosis:COVID-19 Attending: LISSETTE MCCOLLUM Current LOS: 2 Anticipated DC Date: Planned Disposition: Primary Insurance: MEDICARE A & B Discharge Planning Comments: CM called pt dtr Renee at [phone] about dc planning. CM educated patient on the CM role and verbal consent given by patient to complete assessment. CM verified patient's address, phone number, and emergency contact phone numbers. Patient lives at home with his in a basement apartment at their sons house. Renee voiced concerns over her father's Parkinson's disease and the increased weakness he has. States her and her siblings may not be able to care for him upon dc. Renee mad a 3 way call with CM and her siblings so that each family member can speak about concerns. CM spoke to family about SNF, HH, PT, and private CG. Each states that their parents do not have enough money to afford private duty care. And they all need to work and are unable to provide 24 hour care. CM provided details of finding a SNF with [facility]. They stated they will think about a SNF and return a call to CM. Later this afternoon CM received a call from Renee stating the family is in agreement for SNF. Renee stated she called [facility] who will look at the clinical information. CM faxed clinicals to [facility] as requested. CM will continue to follow and will assist as needed with dc plans/needs. Chummer: Luisa Iqbal DCP- Discharge Planning Updated by [email or web address]: Luisa Iqbal on 12/26/19 7:[address] LATE ENTRY. CONVERSATION OCCURED 9/20/20 CM RECIEVED A CALL FROM PT DAUGHTER RENEE ([phone]) WHO DEMANDS HER MOTHER AND FATHER BE SENT TO [facility] FOR A HIGHER LEVEL OF CARE. SHE STATES THEY ARE A [facility] AND THEY HAVE ACCESS TO [facility] IF HER FAMILY REQUIRES IT. CM EDUCATED RENEE ON WHAT CONSTITUTES A HIGHER LEVEL OF CARE. SHE STATES SHE HAS DR AGARWAL WHO WILL ACCEPT HER AND WANTS THE AMBULANCE RIDE COVERED BY INSURANCE SINCE IT IS A HIGHER LEVEL OF CARE. CM REINFORCED THAT IT IS A LATERAL TRANSFER. THE SERVICES PROVIDED TO HER PARENTS ARE THE SAME IT WOULD BE AT [facility], AND INSURANCE WILL NOT PAY FOR TRANSPORT. 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 SHE STATES SHE IS THEIR ONLY ADVOCATE IS TERRIFIED FOR THEIR LIVES. CM PROVIDED INSTRUCTION TO WHAT [facility] IS DOING CLINICALLY FOR HER FAMILY. CM ALLOWED RENEE TO VENT HER CONCERNS, WHILE PROVIDING EMOTIONAL SUPPORT. RENEE VOICED UNDERSTANDING AND WAS THANKFUL FOR THE INFORMATION PROVIDED. SHE REQUESTS THAT THE DR CALL HER FOR UPDATES. EMIL SPOKE WITH THE NURSE PROVIDING CARE FOR THE PATIENT AND RELAYED THE REQUEST. THE NURSES STATES THAT DR MEJIA WILL CALL AFTER HE ROUNDS ON THE PATIENT TODAY. CM TO CONTINUE ASSISTING NEEDED WITH DC PLANS/NEEDS LUISA IQBAL External Providers External Provider: OTHER-OTHER Next Contact Date: Service Request Date: Service Type: Resolution: Reviewer: Comments: Coverage Notice Reviewer: [id number] Rajinder Iqbal Notice Issued Date-Time: 01/03/2020 9:00 Notice Type: Patient Choice Letter Notice Delivered To: Family Member Relationship to Patient: Daughter Cable Spooler Name: Renee Delivery Method: PHONE - Phone Jana Days: Prior Verbal Notification: Yes Recipient Understood Notice: Yes Recipient Signature: Med Rec Note Co-signed by Attending: Coverage Notice Comment: IP rehab at [facility] Reviewer: [id number] Rajinder Iqbal Notice Issued Date-Time: 12/26/2019 9:00 Notice Type: Patient Choice Letter Notice Delivered To: Family Member Relationship to Patient: Daughter Cable Spooler Name: Renee Delivery Method: PHONE - Phone Jana Days: Prior Verbal Notification: Yes Recipient Understood Notice: Yes Recipient Signature: Med Rec Note Co-signed by Attending: Coverage Notice Comment: [facility] Reviewer: [id number] Rajinder Marshall Notice Issued Date-Time: 12/30/2019 16:10 Notice Type: Patient Choice Letter Notice Delivered To: Other Relationship to Patient: Daughter Cable Spooler Name: Jessica Delivery Method: MAIL - Mail Jana Days: Prior Verbal Notification: Recipient Understood Notice: Recipient Signature: Med Rec Note Co-signed by Attending: Coverage Notice Comment: "Anywhere" SNF [facility] Reviewer: [id number] Rajinder Iqbal Notice Issued Date-Time: 12/30/2019 16:03 Notice Type: Patient Choice Letter Notice Delivered To: Family Member Relationship to Patient: Son in Law Cable Spooler Name: Ariel Delivery Method: HAND - Hand Delivered Jana Days: Prior Verbal Notification: Yes Recipient Understood Notice: Yes Recipient Signature: Med Rec Note Co-signed by Attending: Coverage Notice Comment: any SNF. states it is CM job to find a facility that accepts covid. Last DP export: 01/03/20 8:23 a Patient Name: DOMINIC PERALTA Page [id number] at 1002 All edits/amendments must be made on the electronic document DICTATION DATE: 01/03/20 1001 GENERAL WAREHOUSE WORKER: RODNEY 01/03/20 1001 RPT#: [id number] DC DATE: STATUS: ADM IN [facility] [address] [place] [address] END OF REPORT
--- NOTE | 2020-01-03 10:10 | MORECARE ---
CASE MANAGEMENT DISCHARGE SUMMARY PATIENT: DOMINIC PERALTA UNIT: [id number] ADM DATE: 12/24/19 AGE: 69 : 46 SEX: M ROOM/BED: D.213 AUTHOR: CÉSARDOC PHYSICIAN: REFERRING PHYSICIAN: LISSETTE MCCOLLUM MD DATE OF SERVICE: 01/03/20 Discharge Plan Patient Name: DOMINIC PERALTA Facility: [facility]:[place] : 1950 Planned Disposition: Anticipated Discharge Date: Discharge Date: Expected LOS: Initial Reviewer: [email or web address] Initial Review Date: 12/24/2019 Generated: 01/03/20 11:09 am Comments DCP- Discharge Planning Updated by [id number]: Luisa Iqbal on 01/03/20 9:[address] CM received call from Whitney in . Whitney stated she is on the phone with the pts son in law who is requesting dc disposition. Provided updates. Luisa Iqbal DCP- Discharge Planning Updated by [id number]: Luisa Iqbal on 01/03/20 9:[address] CM called [facility] IP rehab at [phone] and left a message with Vicky about referral Cm faxed clinical to [phone] and will await return call. Luisa HO,RN,CM DCP- Discharge Planning Updated by [id number]: Luisa Iqbal on 01/03/20 8:[address] CM attempted to call [facility] rehab at [phone] for referral. CM unable to reach at this time. Will continue to reach out per request. Luisa Iqbal DCP- Discharge Planning Updated by [id number]: Luisa Iqbal on 01/03/20 8:[address] Received call from Luisa Marshall stating she received a call from pt justa Smith requesting a referral to IP rehab at [facility], and the patient be retested for covid. CM spoke with Arvin FISH about the covi test. CM faxed referral per request to [facility] rehab. Luisa HO,RN,CM DCP- Discharge Planning Updated by [id number]: Luisa Marshall on 12/30/19 4:[address] Late entry: 1310 CM received call from Sarah Chavez with [facility] stating she had received a call from patient's daughter about some concerns she had. CM gave report to Sarah about patient's status per today's pulmonology progress note and family medicine progress note. CM answered Sarah's questions about status of discharge planning. Explained that [facility] and [facility] have both declined patient, need to know from family what other SNF they would allow CM to refer to. 15:34 CM received second call from Sarah Chavez with [facility] stating she had spoken with the family again and they told her that they weren't going to tell CM where to send the referral to, "that's their job". Sarah instructed CM to send SNF referral anywhere. 16:[address] Day who informed CM that he spoke with daughter, Jessica, who stated she spoke with someone at [facility] and she wants CM to send referral there. Stated they were going to accept patient with anticipated DC Thursday. CM called [facility]. Spoke with Cassie about referral. Faxed records as requested. Awaiting determination. DCP- Discharge Planning Updated by [id number]: Luisa Iqbal on 12/30/19 3:[address] CM RECIEVED CALL FROM ARIEL ALFARO. DOMINIC STATED CM, DR, NURSING, AND ADMINITISTRATION HAS DONE NOTHING FOR HIS FATHER. STATED HE HAD TO YELL AND SCREAM TO GET HIS MOTHER TRANSFERED, AND HE IS NOT AFRAID OF COMMING TO THE HOSPITAL TO GET HIS FATHER TRANSFERED WELL. EMIL STATED HOW [facility] WAS NOTIFIED THIS AM, AND WHAT WAS DONE TO GET PT TRANSFERED. TODAY. DOMINIC CONTINUEW TO YELL AT STATING HE DOES NOT UNDERSTAND HOW CM CAN DO NOTHING FOR HIS FATHER. STATES HE HAS A DR WHO HAS ACCEPTED HIM, BUT THE HOSPITAL WILL NOT TRANSFER HIM. CM STATES SHE WILL CONTINUE TO REACH OUT TO [facility] AND SOON THEY PROVIDE ACCEPTANCE AND AN AVALABLE BED HE WILL BE TRANSFERED REQUESTED. STATES THAT HE HAS NOT HAD A CONFERSATION WITH A DOCTOR IN 4 DAYS. AND WILL GO TO ADMINISTRATION IF HE HAS TOO. STATED THAT THE DR IS ROUNDING ON EVERY PATIENT AND CM WILL PROVIDE THE DR WITH HIS NUMBER. CM ATTEMPT TO PROVIDE REASSURANCE. CM PROVIDED DR DAY WITH A PHONE NUMBER TO REACH Agata KAPLAN. WHO STATES HE WILL SPEAK WITH THE FAMILY. LUISA IQBAL MSN,RN,CM DCP- Discharge Planning Updated by [id number]: Luisa Iqbal on 12/30/19 3:[address] Patient Name: DOMINIC PERALTA Admission Status: ER Accout number: [id number] Admission Date: 12-24-2019 : 1950 Admission Diagnosis:COVID-19 Attending: LISSETTE MCCOLLUM Current LOS: 6 Anticipated DC Date: Planned Disposition: Primary Insurance: MEDICARE A & B Discharge Planning Comments: Spoke with Luisa El CM who states she spoke with the family and they have provided authorization to send referrals to any facility that will accept pt with COVID. CM sent referrals to clinical liasons [facility], and Kimberly for [facility], and Caroline for [facility]. CM will continue to assist in dc planning/needs. Sales Service Professional: Luisa Iqbal DCP- Discharge Planning Updated by [id number]: Luisa Iqbal on 12/30/19 11:[address] Patient Name: DOMINIC PERALTA Admission Status: ER Accout number: [id number] Admission Date: 12-24-2019 : 1950 Admission Diagnosis:COVID-19 Attending: LISSETTE MCCOLLUM Current LOS: 6 Anticipated DC Date: Planned Disposition: Primary Insurance: MEDICARE A & B Discharge Planning Comments: CM spoke with Regina from [facility] who states they are not able to accept the patient into that facility. States there is a facility in [place] who is accepting Covid positive patients at this time. CM will have Luisa CRAWFORD MGR to relay that that information to the family. Luisa Iqbal Sales Service Professional: Luisa Iqbal DCP- Discharge Planning Updated by [id number]: Luisa Iqbal on 12/30/19 8:[address] Late Entry assessment competed at 1530 12/29/19 CM received a call from Hui at the access team at [facility] with a determination that they are unable to accept the patient because it is a lateral transfer. Hui states she has received several calls about the transfer and [facility] is unable to accept the patient, and the facility would prefer not to receive any more calls regarding this patient unless his condition deteriorates. Emil spoke with Dr. Day regarding the determination. Dr. Day stated he would call the family and update. Luisa Iqbal DCP- Discharge Planning Updated by [id number]: Luisa Edds on 12/29/19 1:[address] CM CALLED HUI AT [facility] AT [phone] ABOUT PENDING TRANSFER. SHE STATED THAT SHE HAS NOT RECIEVED THE FAX. CONFIRMED FAX NUMBER OF [phone]. SHE STATES SHE IS NOT ABLE TO RECIEVE ELECTRONIC FAXES AT THIS TIME. CM REFAXED FACE SHEET TO [phone]. CM MANUALLY FAXED CLINICALS. PROVIDED CM DIRECT LINE, AND THE NURSES STATION NUMBER IF A BED OPEN UP. LUISA IQBAL DCP- Discharge Planning Updated by [id number]: Luisa Iqbal on 12/29/19 7:[address] Patient Name: DOMINIC PERALTA Encounter No: [id number] : 1950 Primary Insurance: MEDICARE A & B Anticipated DC Date: Planned Disposition: External Planned Provider: : DCP follow-up note: CM was asked to called Pt daughter Jessica at [phone]. Cm called Jessica who was very upset. Jessica began yelling as soon as CM initiated conversation. Jessica states that her father is not being cared for. States since this hospital is not able to provide PT she fears her father will decline at a rapid rate. She demands that CM call [facility] and get him transferred to a higher level of care. CM called domestic housekeeper for update then called [facility] transfer team at [phone] and spoke to Keely CRAFT. EMIL provided clinical representation, and Keely states she will call CM for bed availability. CM will call pt family for updates as they arise. Case management will follow and assist as needed. Luisa Iqbal DCP- Discharge Planning Updated by [id number]: Ariel Strange on 12/28/19 3:[address] Patient Name: DOMINIC PERALTA Encounter No: [id number] : 1950 Primary Insurance: MEDICARE A & B Anticipated DC Date: Planned Disposition: External Planned Provider: : DCP follow-up note: TC to Regina. Regina states that she received fax and will contact us with placement if possible. Will continue to follow Ariel Strange DCP- Discharge Planning Updated by [id number]: Ariel Strange on 12/28/19 1:[address] Patient Name: DOMINIC PERALTA Encounter No: [id number] : 1950 Primary Insurance: MEDICARE A & B Anticipated DC Date: Planned Disposition: External Planned Provider: : DCP follow-up note: Spoke with Regina Perry who coordinates with [facility]. Regina states that the patient should be able to transfer to [facility] and has reviewed previous clinicals sent. Will traditionally fax latest progress notes and medication list per request via. Will continue to follow. Ariel Strange DCP- Discharge Planning Updated by [id number]: Luisa Iqbal on 12/27/19 5:[address] Cm spoke with Regina from [facility] who states they are looking at the clinicals. They will get back with CM with determination. Luisa Iqbal DCP- Discharge Planning Updated by [id number]: Luisa Iqbal on 12/26/19 7:[address] Patient Name: DOMINIC PERALTA Admission Status: ER Accout number: [id number] Admission Date: 12-24-2019 : 1950 Admission Diagnosis:COVID-19 Attending: LISSETTE MCCOLLUM Current LOS: 2 Anticipated DC Date: Planned Disposition: Primary Insurance: MEDICARE A & B Discharge Planning Comments: CM called pt dtr Renee at [phone] about dc planning. CM educated patient on the CM role and verbal consent given by patient to complete assessment. CM verified patient's address, phone number, and emergency contact phone numbers. Patient lives at home with his in a basement apartment at their sons house. Renee voiced concerns over her father's Parkinson's disease and the increased weakness he has. States her and her siblings may not be able to care for him upon dc. Renee mad a 3 way call with CM and her siblings so that each family member can speak about concerns. CM spoke to family about SNF, HH, PT, and private CG. Each states that their parents do not have enough money to afford private duty care. And they all need to work and are unable to provide 24 hour care. CM provided details of finding a SNF with Covid. They stated they will think about a SNF and return a call to . Later this afternoon CM received a call from Renee stating the family is in agreement for SNF. Renee stated she called [facility] who will look at the clinical information. CM faxed clinicals to [facility] as requested. CM will continue to follow and will assist as needed with dc plans/needs. Sales Service Professional: Luisa Iqbal DCP- Discharge Planning Updated by [id number]: Luisa Iqbal on 12/26/19 7:[address] LATE ENTRY. CONVERSATION OCCURED 12/25/19 CM RECIEVED A CALL FROM PT DAUGHTER RENEE ([phone]) WHO DEMANDS HER MOTHER AND FATHER BE SENT TO [facility] FOR A HIGHER LEVEL OF CARE. SHE STATES THEY ARE A [facility] AND THEY HAVE ACCESS TO [facility] IF HER FAMILY REQUIRES IT. CM EDUCATED RENEE ON WHAT CONSTITUTES A HIGHER LEVEL OF CARE. SHE STATES SHE HAS DR AGARWAL WHO WILL ACCEPT HER AND WANTS THE AMBULANCE RIDE COVERED BY INSURANCE SINCE IT IS A HIGHER LEVEL OF CARE. CM REINFORCED THAT IT IS A LATERAL TRANSFER. THE SERVICES PROVIDED TO HER PARENTS ARE THE SAME IT WOULD BE AT [facility], AND INSURANCE WILL NOT PAY FOR TRANSPORT. 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 SHE STATES SHE IS THEIR ONLY ADVOCATE IS TERRIFIED FOR THEIR LIVES. CM PROVIDED INSTRUCTION TO WHAT [facility] IS DOING CLINICALLY FOR HER FAMILY. CM ALLOWED RENEE TO VENT HER CONCERNS, WHILE PROVIDING EMOTIONAL SUPPORT. RENEE VOICED UNDERSTANDING AND WAS THANKFUL FOR THE INFORMATION PROVIDED. SHE REQUESTS THAT THE CALL HER FOR UPDATES. EMIL SPOKE WITH THE NURSE PROVIDING CARE FOR THE PATIENT AND RELAYED THE REQUEST. THE NURSES STATES THAT DR MEJIA WILL CALL AFTER HE ROUNDS ON THE PATIENT TODAY. CM TO CONTINUE ASSISTING NEEDED WITH DC PLANS/NEEDS LUISA IQBAL Coverage Notice Reviewer: [id number] - Luisa Iqbal Notice Issued Date-Time: 01/03/2020 9:00 Notice Type: Patient Choice Letter Notice Delivered To: Family Member Relationship to Patient: Daughter Ip Litigation Paralegal Name: Renee Delivery Method: PHONE - Phone Jana Days: Prior Verbal Notification: Yes Recipient Understood Notice: Yes Recipient Signature: Med Rec Note Co-signed by Attending: Coverage Notice Comment: IP rehab at [place] Reviewer: [id number] Rajinder Iqbal Notice Issued Date-Time: 12/26/2019 9:00 Notice Type: Patient Choice Letter Notice Delivered To: Family Member Relationship to Patient: Daughter Ip Litigation Paralegal Name: Renee Delivery Method: PHONE - Phone Jana Days: Prior Verbal Notification: Yes Recipient Understood Notice: Yes Recipient Signature: Med Rec Note Co-signed by Attending: Coverage Notice Comment: [facility] Reviewer: [id number] Rajinder Marshall Notice Issued Date-Time: 12/30/2019 16:10 Notice Type: Patient Choice Letter Notice Delivered To: Other Relationship to Patient: Daughter Ip Litigation Paralegal Name: Jessica Delivery Method: MAIL - Mail Jana Days: Prior Verbal Notification: Recipient Understood Notice: Recipient Signature: Med Rec Note Co-signed by Attending: Coverage Notice Comment: "Anywhere" SNF [facility] Reviewer: [id number] Rajinder Iqbal Notice Issued Date-Time: 12/30/2019 16:03 Notice Type: Patient Choice Letter Notice Delivered To: Family Member Relationship to Patient: Son in Law Ip Litigation Paralegal Name: Ariel Delivery Method: HAND - Hand Delivered Jana Days: Prior Verbal Notification: Yes Recipient Understood Notice: Yes Recipient Signature: Med Rec Note Co-signed by Attending: Coverage Notice Comment: any SNF. states it is CM job to find a facility that accepts covid. Last DP export: 01/03/20 9:02 a Patient Name: DOMINIC PERALTA Page [id number] at 1010 All edits/amendments must be made on the electronic document DICTATION DATE: 01/03/20 1009 RESTAURANT HOST: RODNEY 01/03/20 1009 RPT#: [id number] DC DATE: STATUS: ADM IN [facility] [address] [place] [address] END OF REPORT
[2020-01-03 10:42] VITALS: BP 153/70
--- NOTE | 2020-01-03 10:43 | MORECARE ---
CASE MANAGEMENT DISCHARGE SUMMARY PATIENT: DOMINIC PERALTA UNIT: [id number] ADM DATE: 12/24/19 AGE: 69 : 46 SEX: M ROOM/BED: D.2134 AUTHOR: CÉSARDOC PHYSICIAN: REFERRING PHYSICIAN: LISSETTE MCCOLLUM MD DATE OF SERVICE: 01/03/20 Discharge Plan Patient Name: DOMINIC PERALTA Facility: [facility]:[place] : 1950 Planned Disposition: Anticipated Discharge Date: Discharge Date: Expected LOS: Initial Reviewer: [id number] Initial Review Date: 12/24/2019 Generated: 01/03/20 11:43 am Comments DCP- Discharge Planning Updated by [email or web address]: Luisa Iqbal on 01/03/20 9:[address] CM received call from Whitney in . Whitney stated she is on the phone with the pts son in law who is requesting dc disposition. Provided updates. Luisa Iqbal DCP- Discharge Planning Updated by [id number]: Luisa Iqbal on 01/03/20 9:[address] CM called [facility] IP rehab at [phone] and left a message with Vicky about referral Cm faxed clinical to [phone] and will await return call. Luisa HO,RN,CM DCP- Discharge Planning Updated by [email or web address]: Luisa Iqbal on 01/03/20 8:[address] CM attempted to call [facility] rehab at [phone] for referral. CM unable to reach at this time. Will continue to reach out per request. Luisa Iqbal DCP- Discharge Planning Updated by [id number]: Luisa Iqbal on 01/03/20 8:[address] Received call from Luisa Marshall stating she received a call from pt justa Smith requesting a referral to IP rehab at [facility], and the patient be retested for covid. CM spoke with Arvin FISH about the covi test. CM faxed referral per request to [facility] rehab. Luisa HO,RN,CM DCP- Discharge Planning Updated by [email or web address]: Luisa Marshall on 12/30/19 4:[address] Late entry: 1310 CM received call from Sarah Chavez with [employer] stating she had received a call from patient's daughter about some concerns she had. CM gave report to Sarah about patient's status per today's pulmonology progress note and family medicine progress note. CM answered Sarah's questions about status of discharge planning. Explained that [facility] and [place] have both declined patient, need to know from family what other SNF they would allow CM to refer to. 15:34 CM received second call from Sarah Chavez with [facility] stating she had spoken with the family again and they told her that they weren't going to tell CM where to send the referral to, "that's their job". Sarah instructed CM to send SNF referral anywhere. 16:[address] Day who informed CM that he spoke with daughter, Jessica, who stated she spoke with someone at [facility] and she wants CM to send referral there. Stated they were going to accept patient with anticipated DC Thursday. CM called [facility]. Spoke with Cassie about referral. Faxed records as requested. Awaiting determination. DCP- Discharge Planning Updated by [id number]: Luisa Iqbal on 12/30/19 3:[address] CM RECIEVED CALL FROM ARIEL ALFARO. DOMINIC STATED CM, DR, NURSING, AND ADMINITISTRATION HAS DONE NOTHING FOR HIS FATHER. STATED HE HAD TO YELL AND SCREAM TO GET HIS MOTHER TRANSFERED, AND HE IS NOT AFRAID OF COMMING TO THE HOSPITAL TO GET HIS FATHER TRANSFERED WELL. EMIL STATED HOW [facility] WAS NOTIFIED THIS AM, AND WHAT WAS DONE TO GET PT TRANSFERED. TODAY. DOMINIC CONTINUEW TO YELL AT STATING HE DOES NOT UNDERSTAND HOW CM CAN DO NOTHING FOR HIS FATHER. STATES HE HAS A DR WHO HAS ACCEPTED HIM, BUT THE HOSPITAL WILL NOT TRANSFER HIM. CM STATES SHE WILL CONTINUE TO REACH OUT TO [facility] AND SOON THEY PROVIDE ACCEPTANCE AND AN AVALABLE BED HE WILL BE TRANSFERED REQUESTED. STATES THAT HE HAS NOT HAD A CONFERSATION WITH A DOCTOR IN 4 DAYS. AND WILL GO TO ADMINISTRATION IF HE HAS TOO. STATED THAT THE DR IS ROUNDING ON EVERY PATIENT AND CM WILL PROVIDE THE DR WITH HIS NUMBER. CM ATTEMPT TO PROVIDE REASSURANCE. CM PROVIDED DR DAY WITH A PHONE NUMBER TO REACH Agata KAPLAN. WHO STATES HE WILL SPEAK WITH THE FAMILY. LUISA IQBAL MSN,RN,CM DCP- Discharge Planning Updated by [id number]: Luisa Iqbal on 12/30/19 3:[address] Patient Name: DOMINIC PERALTA Admission Status: ER Accout number: [id number] Admission Date: 12-24-2019 : 1950 Admission Diagnosis:COVID-19 Attending: LISSETTE MCCOLLUM Current LOS: 6 Anticipated DC Date: Planned Disposition: Primary Insurance: MEDICARE A & B Discharge Planning Comments: Spoke with Luisa El CM who states she spoke with the family and they have provided authorization to send referrals to any facility that will accept pt with COVID. CM sent referrals to clinical liasons [facility], and Kimberly for [facility], and Caroline for [facility]. CM will continue to assist in dc planning/needs. Wearing Apparel Assembler: Luisa Iqbal DCP- Discharge Planning Updated by [id number]: Luisa Iqbal on 12/30/19 11:[address] Patient Name: DOMINIC PERALTA Admission Status: ER Accout number: [id number] Admission Date: 12-24-2019 : 1950 Admission Diagnosis:COVID-19 Attending: LISSETTE MCCOLLUM Current LOS: 6 Anticipated DC Date: Planned Disposition: Primary Insurance: MEDICARE A & B Discharge Planning Comments: CM spoke with Regina from [place] who states they are not able to accept the patient into that facility. States there is a facility in [place] who is accepting Covid positive patients at this time. CM will have Luisa CRAWFORD MGR to relay that that information to the family. Luisa Iqbal Wearing Apparel Assembler: Luisa Iqbal DCP- Discharge Planning Updated by [email or web address]: Luisa Iqbal on 12/30/19 8:[address] Late Entry assessment competed at 1530 12/29/19 CM received a call from Hui at the access team at [facility] with a determination that they are unable to accept the patient because it is a lateral transfer. Hui states she has received several calls about the transfer and [facility] is unable to accept the patient, and the facility would prefer not to receive any more calls regarding this patient unless his condition deteriorates. Emil spoke with Dr. Day regarding the determination. Dr. Day stated he would call the family and update. Luisa Iqbal DCP- Discharge Planning Updated by [email or web address]: Luisa Edds on 12/29/19 1:[address] CM CALLED HUI AT [facility] AT [phone] ABOUT PENDING TRANSFER. SHE STATED THAT SHE HAS NOT RECIEVED THE FAX. CONFIRMED FAX NUMBER OF [phone]. SHE STATES SHE IS NOT ABLE TO RECIEVE ELECTRONIC FAXES AT THIS TIME. CM REFAXED FACE SHEET TO [phone]. CM MANUALLY FAXED CLINICALS. PROVIDED CM DIRECT LINE, AND THE NURSES STATION NUMBER IF A BED OPEN UP. LUISA IQBAL DCP- Discharge Planning Updated by [id number]: Luisa Iqbal on 12/29/19 7:[address] Patient Name: DOMINIC PERALTA Encounter No: [id number] : 1950 Primary Insurance: MEDICARE A & B Anticipated DC Date: Planned Disposition: External Planned Provider: : DCP follow-up note: CM was asked to called Pt daughter Jessica at [phone]. Cm called Jessica who was very upset. Jessica began yelling as soon as CM initiated conversation. Jessica states that her father is not being cared for. States since this hospital is not able to provide PT she fears her father will decline at a rapid rate. She demands that CM call [facility] and get him transferred to a higher level of care. CM called warehouse forklift operator for update then called [facility] transfer team at [phone] and spoke to Keely CRAFT. EMIL provided clinical representation, and Keely states she will call CM for bed availability. CM will call pt family for updates as they arise. Case management will follow and assist as needed. Luisa Iqbal DCP- Discharge Planning Updated by [id number]: Ariel Strange on 12/28/19 3:[address] Patient Name: DOMINIC PERALTA Encounter No: [id number] : 1950 Primary Insurance: MEDICARE A & B Anticipated DC Date: Planned Disposition: External Planned Provider: : DCP follow-up note: TC to Regina. Regina states that she received fax and will contact us with placement if possible. Will continue to follow Ariel Strange DCP- Discharge Planning Updated by [id number]: Ariel Strange on 12/28/19 1:[address] Patient Name: DOMINIC PERALTA Encounter No: [id number] : 1950 Primary Insurance: MEDICARE A & B Anticipated DC Date: Planned Disposition: External Planned Provider: : DCP follow-up note: Spoke with Regina Perry who coordinates with [facility]. Regina states that the patient should be able to transfer to [place] and has reviewed previous clinicals sent. Will traditionally fax latest progress notes and medication list per request via. Will continue to follow. Ariel Strange DCP- Discharge Planning Updated by [id number]: Luisa Iqbal on 12/27/19 5:[address] Cm spoke with Regina from [place] who states they are looking at the clinicals. They will get back with CM with determination. Luisa Iqbal DCP- Discharge Planning Updated by [id number]: Luisa Iqbal on 12/26/19 7:[address] Patient Name: DOMINIC PERALTA Admission Status: ER Accout number: [id number] Admission Date: 12-24-2019 : 1950 Admission Diagnosis:COVID-19 Attending: LISSETTE MCCOLLUM Current LOS: 2 Anticipated DC Date: Planned Disposition: Primary Insurance: MEDICARE A & B Discharge Planning Comments: CM called pt dtr Renee at [phone] about dc planning. CM educated patient on the CM role and verbal consent given by patient to complete assessment. CM verified patient's address, phone number, and emergency contact phone numbers. Patient lives at home with his in a basement apartment at their sons house. Renee voiced concerns over her father's Parkinson's disease and the increased weakness he has. States her and her siblings may not be able to care for him upon dc. Renee mad a 3 way call with CM and her siblings so that each family member can speak about concerns. CM spoke to family about SNF, HH, PT, and private CG. Each states that their parents do not have enough money to afford private duty care. And they all need to work and are unable to provide 24 hour care. CM provided details of finding a SNF with Covid. They stated they will think about a SNF and return a call to CM. Later this afternoon CM received a call from Renee stating the family is in agreement for SNF. Renee stated she called [facility] who will look at the clinical information. CM faxed clinicals to [place] as requested. CM will continue to follow and will assist as needed with dc plans/needs. Wearing Apparel Assembler: Luisa Iqbal DCP- Discharge Planning Updated by [email or web address]: Luisa Iqbal on 12/26/19 7:[address] LATE ENTRY. CONVERSATION OCCURED 12/25/19 CM RECIEVED A CALL FROM PT DAUGHTER RENEE ([phone]) WHO DEMANDS HER MOTHER AND FATHER BE SENT TO [facility] FOR A HIGHER LEVEL OF CARE. SHE STATES THEY ARE A [facility] CENTER AND THEY HAVE ACCESS TO [facility] IF HER FAMILY REQUIRES IT. CM EDUCATED RENEE ON WHAT CONSTITUTES A HIGHER LEVEL OF CARE. SHE STATES SHE HAS DR AGARWAL WHO WILL ACCEPT HER AND WANTS THE AMBULANCE RIDE COVERED BY INSURANCE SINCE IT IS A HIGHER LEVEL OF CARE. CM REINFORCED THAT IT IS A LATERAL TRANSFER. THE SERVICES PROVIDED TO HER PARENTS ARE THE SAME IT WOULD BE AT [facility], AND INSURANCE WILL NOT PAY FOR TRANSPORT. 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 SHE STATES SHE IS THEIR ONLY ADVOCATE IS TERRIFIED FOR THEIR LIVES. CM PROVIDED INSTRUCTION TO WHAT [facility] IS DOING CLINICALLY FOR HER FAMILY. CM ALLOWED RENEE TO VENT HER CONCERNS, WHILE PROVIDING EMOTIONAL SUPPORT. RENEE VOICED UNDERSTANDING AND WAS THANKFUL FOR THE INFORMATION PROVIDED. SHE REQUESTS THAT THE CALL HER FOR UPDATES. EMIL SPOKE WITH THE NURSE PROVIDING CARE FOR THE PATIENT AND RELAYED THE REQUEST. THE NURSES STATES THAT DR MEJIA WILL CALL AFTER HE ROUNDS ON THE PATIENT TODAY. CM TO CONTINUE ASSISTING NEEDED WITH DC PLANS/NEEDS LUISA IQBAL External Providers External Provider: [facility] Next Contact Date: Service Request Date: Service Type: Resolution: Reviewer: Comments: Coverage Notice Reviewer: [id number] - Luisa Iqbal Notice Issued Date-Time: 01/03/2020 9:00 Notice Type: Patient Choice Letter Notice Delivered To: Family Member Relationship to Patient: Daughter Channel Lip Wetter Name: Renee Delivery Method: PHONE - Phone Jana Days: Prior Verbal Notification: Yes Recipient Understood Notice: Yes Recipient Signature: Med Rec Note Co-signed by Attending: Coverage Notice Comment: IP rehab at [place] Reviewer: [id number] Rajinder Iqbal Notice Issued Date-Time: 12/26/2019 9:00 Notice Type: Patient Choice Letter Notice Delivered To: Family Member Relationship to Patient: Daughter Channel Lip Wetter Name: Renee Delivery Method: PHONE - Phone Jana Days: Prior Verbal Notification: Yes Recipient Understood Notice: Yes Recipient Signature: Med Rec Note Co-signed by Attending: Coverage Notice Comment: [facility] rehab Reviewer: [id number] Rajinder Marshall Notice Issued Date-Time: 12/30/2019 16:10 Notice Type: Patient Choice Letter Notice Delivered To: Other Relationship to Patient: Daughter Channel Lip Wetter Name: Jessica Delivery Method: MAIL - Mail Jana Days: Prior Verbal Notification: Recipient Understood Notice: Recipient Signature: Med Rec Note Co-signed by Attending: Coverage Notice Comment: "Anywhere" SNF [facility] Reviewer: [id number] Rajinder Iqbal Notice Issued Date-Time: 12/30/2019 16:03 Notice Type: Patient Choice Letter Notice Delivered To: Family Member Relationship to Patient: Son in Law Channel Lip Wetter Name: Ariel Delivery Method: HAND - Hand Delivered Jana Days: Prior Verbal Notification: Yes Recipient Understood Notice: Yes Recipient Signature: Med Rec Note Co-signed by Attending: Coverage Notice Comment: any SNF. states it is CM job to find a facility that accepts covid. Last DP export: 01/03/20 9:10 a Patient Name: DOMINIC PERALTA Page [id number] at 1043 All edits/amendments must be made on the electronic document DICTATION DATE: 01/03/20 1043 JAIL GUARD: RODNEY 01/03/20 1043 RPT#: [id number] DC DATE: STATUS: ADM IN [facility] [address] [place] [address] END OF REPORT
--- NOTE | 2020-01-03 11:15 | MORECARE ---
CASE MANAGEMENT DISCHARGE SUMMARY PATIENT: DOMINIC PERALTA UNIT: [id number] ADM DATE: 12/24/19 AGE: 69 : 46 SEX: M ROOM/BED: D.2131 AUTHOR: CÉSAR,DOC PHYSICIAN: REFERRING PHYSICIAN: LISSETTE MCCOLLUM MD DATE OF SERVICE: 01/03/20 Discharge Plan Patient Name: DOMINIC PERALTA Facility: [facility]:[place] : 1950 Planned Disposition: Anticipated Discharge Date: Discharge Date: Expected LOS: Initial Reviewer: [id number] Initial Review Date: 12/24/2019 Generated: 01/03/20 12:14 pm Comments DCP- Discharge Planning Updated by [email or web address]: Luisa Iqbal on 01/03/20 10:[address] Late Entry 1030 CM received call from Whitney in stating the patient family requests referral to [facility] IP rehab. CM called Vicky at [phone] and faxed referral. CM will wait for determination. Luisa Iqbal MSN,RN DCP- Discharge Planning Updated by [email or web address]: Luisa Iqbal on 01/03/20 9:[address] CM received call from Whitney in . Whitney stated she is on the phone with the pts son in law who is requesting dc disposition. Provided updates. Luisa Iqbal DCP- Discharge Planning Updated by [id number]: Luisa Iqbal on 01/03/20 9:[address] CM called [facility] rehab at [phone] and left a message with Vicky about referral Cm faxed clinical to [phone] and will await return call. Luisa HO,RN,CM DCP- Discharge Planning Updated by [id number]: Luisa Iqbal on 01/03/20 8:[address] CM attempted to call [facility] rehab at [phone] for referral. CM unable to reach at this time. Will continue to reach out per request. Luisa Iqbal DCP- Discharge Planning Updated by [id number]: Luisa Iqbal on 01/03/20 8:[address] Received call from Luisa Marshall stating she received a call from pt daughter Sarah requesting a referral to IP rehab at [facility], and the patient be retested for covid. CM spoke with Arvin FISH about the covi test. CM faxed referral per request to [facility] rehab. Luisa Iqbal MSN,RN,CM DCP- Discharge Planning Updated by [id number]: Luisa Marshall on 12/30/19 4:[address] Late entry: 1310 CM received call from Sarah Chavez with [facility] stating she had received a call from patient's daughter about some concerns she had. CM gave report to Sarah about patient's status per today's pulmonology progress note and family medicine progress note. CM answered Sarah's questions about status of discharge planning. Explained that [facility] and [facility] have both declined patient, need to know from family what other SNF they would allow CM to refer to. 15:34 CM received second call from Sarah Chavez with [facility] stating she had spoken with the family again and they told her that they weren't going to tell CM where to send the referral to, "that's their job". Sarah instructed CM to send SNF referral anywhere. 16:[address] Day who informed CM that he spoke with daughter, Jessica, who stated she spoke with someone at [facility] and she wants CM to send referral there. Stated they were going to accept patient with anticipated DC Thursday. CM called [facility]. Spoke with Cassie about referral. Faxed records as requested. Awaiting determination. DCP- Discharge Planning Updated by [id number]: Luisa Iqbal on 12/30/19 3:[address] CM RECIEVED CALL FROM ARIEL ALFARO. DOMINIC STATED EMIL, DR, NURSING, AND ADMINITISTRATION HAS DONE NOTHING FOR HIS FATHER. STATED HE HAD TO YELL AND SCREAM TO GET HIS MOTHER TRANSFERED, AND HE IS NOT AFRAID OF COMMING TO THE HOSPITAL TO GET HIS FATHER TRANSFERED WELL. EMIL STATED HOW [facility] WAS NOTIFIED THIS AM, AND WHAT WAS DONE TO GET PT TRANSFERED. TODAY. DOMINIC CONTINUEW TO YELL AT STATING HE DOES NOT UNDERSTAND HOW CM CAN DO NOTHING FOR HIS FATHER. STATES HE HAS A DR WHO HAS ACCEPTED HIM, BUT THE HOSPITAL WILL NOT TRANSFER HIM. CM STATES SHE WILL CONTINUE TO REACH OUT TO [facility] AND SOON THEY PROVIDE ACCEPTANCE AND AN AVALABLE BED HE WILL BE TRANSFERED REQUESTED. STATES THAT HE HAS NOT HAD A CONFERSATION WITH A DOCTOR IN 4 DAYS. AND WILL GO TO ADMINISTRATION IF HE HAS TOO. STATED THAT THE DR IS ROUNDING ON EVERY PATIENT AND CM WILL PROVIDE THE DR WITH HIS NUMBER. CM ATTEMPT TO PROVIDE REASSURANCE. CM PROVIDED DR DAY [facility] WHO STATES HE WILL SPEAK WITH THE FAMILY. LUISA IQBAL MSN,RN,CM DCP- Discharge Planning Updated by [id number]: Luisa Iqbal on 12/30/19 3:[address] Patient Name: DOMINIC PERALTA Admission Status: ER Accout number: [id number] Admission Date: 12-24-2019 : 1950 Admission Diagnosis:COVID-19 Attending: LISSETTE MCCOLLUM Current LOS: 6 Anticipated DC Date: Planned Disposition: Primary Insurance: MEDICARE A & B Discharge Planning Comments: Spoke with Luisa El CM who states she spoke with the family and they have provided authorization to send referrals to any facility that will accept pt with COVID. CM sent referrals to clinical liasons [facility], and Kimberly for [facility], and Caroline for [facility]. CM will continue to assist in dc planning/needs. Bonding Agent: Luisa Iqbal DCP- Discharge Planning Updated by [id number]: Luisa Iqbal on 12/30/19 11:[address] Patient Name: DOMINIC PERALTA Admission Status: ER Accout number: [id number] Admission Date: 12-24-2019 : 1950 Admission Diagnosis:COVID-19 Attending: LISSETTE MCCOLLUM Current LOS: 6 Anticipated DC Date: Planned Disposition: Primary Insurance: MEDICARE A & B Discharge Planning Comments: CM spoke with Regina from [facility] who states they are not able to accept the patient into that facility. States there is a facility in [place] who is accepting Covid positive patients at this time. CM will have Luisa CRAWFORD MGR to relay that that information to the family. Luisa Iqbal Bonding Agent: Luisa Iqbal DCP- Discharge Planning Updated by [id number]: Luisa Iqbal on 12/30/19 8:[address] Late Entry assessment competed at 1530 12/29/19 CM received a call from Hui at the access team at [facility] with a determination that they are unable to accept the patient because it is a lateral transfer. Hui states she has received several calls about the transfer and [facility] is unable to accept the patient, and the facility would prefer not to receive any more calls regarding this patient unless his condition deteriorates. Emil spoke with Dr. Day regarding the determination. Dr. Day stated he would call the family and update. Luisa Iqbal DCP- Discharge Planning Updated by [id number]: Luisa Iqbal on 12/29/19 1:[address] CM CALLED HUI AT [facility] AT [phone] ABOUT PENDING TRANSFER. SHE STATED THAT SHE HAS NOT RECIEVED THE FAX. CONFIRMED FAX NUMBER OF [phone]. SHE STATES SHE IS NOT ABLE TO RECIEVE ELECTRONIC FAXES AT THIS TIME. CM REFAXED FACE SHEET TO [phone]. CM MANUALLY FAXED CLINICALS. PROVIDED CM DIRECT LINE, AND THE NURSES STATION NUMBER IF A BED OPEN UP. LUISA IQBAL DCP- Discharge Planning Updated by [id number]: Luisa Iqbal on 12/29/19 7:[address] Patient Name: DOMINIC PERALTA Encounter No: [id number] : 1950 Primary Insurance: MEDICARE A & B Anticipated DC Date: Planned Disposition: External Planned Provider: : DCP follow-up note: EMIL was asked to called Pt daughter Jessica at [phone]. Cm called Jessica who was very upset. Jessica began yelling as soon as CM initiated conversation. Jessica states that her father is not being cared for. States since this hospital is not able to provide PT she fears her father will decline at a rapid rate. She demands that CM call [facility] and get him transferred to a higher level of care. CM called greenhouse specialist for update then called [facility] transfer team at [phone] and spoke to Keely CRAFT. EMIL provided clinical representation, and Keely states she will call CM for bed availability. CM will call pt family for updates as they arise. Case management will follow and assist as needed. Luisa Iqbal DCP- Discharge Planning Updated by [id number]: Ariel Philipnes on 12/28/19 3:[address] Patient Name: DOMINIC PERALTA Encounter No: [id number] : 1950 Primary Insurance: MEDICARE A & B Anticipated DC Date: Planned Disposition: External Planned Provider: : DCP follow-up note: TC to Regina. Regina states that she received fax and will contact us with placement if possible. Will continue to follow Ariel Strange DCP- Discharge Planning Updated by [id number]: Ariel Strange on 12/28/19 1:[address] Patient Name: DOMINIC PERALTA Encounter No: [id number] : 1950 Primary Insurance: MEDICARE A & B Anticipated DC Date: Planned Disposition: External Planned Provider: : DCP follow-up note: Spoke with Regina Perry who coordinates with MIRANDA. Regina states that the patient should be able to transfer to [facility] and has reviewed previous clinicals sent. Will traditionally fax latest progress notes and medication list per request via. Will continue to follow. Ariel Strange DCP- Discharge Planning Updated by [id number]: Luisa Iqbal on 12/27/19 5:[address] Cm spoke with Regina from [facility] who states they are looking at the clinicals. They will get back with CM with determination. Luisa Iqbal DCP- Discharge Planning Updated by [id number]: Luisa Iqbal on 12/26/19 7:[address] Patient Name: DOMINIC PERALTA Admission Status: ER Accout number: [id number] Admission Date: 12-24-2019 : 1950 Admission Diagnosis:COVID-19 Attending: LISSETTE MCCOLLUM Current LOS: 2 Anticipated DC Date: Planned Disposition: Primary Insurance: MEDICARE A & B Discharge Planning Comments: CM called pt dtr Renee at [phone] about dc planning. CM educated patient on the CM role and verbal consent given by patient to complete assessment. CM verified patient's address, phone number, and emergency contact phone numbers. Patient lives at home with his in a basement apartment at their sons house. Renee voiced concerns over her father's Parkinson's disease and the increased weakness he has. States her and her siblings may not be able to care for him upon dc. Renee mad a 3 way call with CM and her siblings so that each family member can speak about concerns. CM spoke to family about SNF, HH, PT, and private CG. Each states that their parents do not have enough money to afford private duty care. And they all need to work and are unable to provide 24 hour care. CM provided details of finding a SNF with [facility]. They stated they will think about a SNF and return a call to EMIL. Later this afternoon CM received a call from Renee stating the family is in agreement for SNF. Renee stated she called [facility] who will look at the clinical information. CM faxed clinicals to [facility] as requested. CM will continue to follow and will assist as needed with dc plans/needs. Bonding Agent: Luisa Iqbal DCP- Discharge Planning Updated by [id number]: Luisa Iqbal on 12/26/19 7:[address] LATE ENTRY. CONVERSATION OCCURED 12/25/19 CM RECIEVED A CALL FROM PT DAUGHTER RENEE ([phone]) WHO DEMANDS HER MOTHER AND FATHER BE SENT TO [facility] FOR A HIGHER LEVEL OF CARE. SHE STATES THEY ARE A LEVEL OE TRE[facility]MENT CENTER AND THEY HAVE ACCESS TO [facility] IF HER FAMILY REQUIRES IT. EMIL EDUCATED RENEE ON WHAT CONSTITUTES A HIGHER LEVEL OF CARE. SHE STATES SHE HAS DR AGARWAL WHO WILL ACCEPT HER AND WANTS THE AMBULANCE RIDE COVERED BY INSURANCE SINCE IT IS A HIGHER LEVEL OF CARE. CM REINFORCED THAT IT IS A LATERAL TRANSFER. THE SERVICES PROVIDED TO HER PARENTS ARE THE SAME IT WOULD BE AT [facility], AND INSURANCE WILL NOT PAY FOR TRANSPORT. 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 SHE STATES SHE IS THEIR ONLY ADVOCATE IS TERRIFIED FOR THEIR LIVES. CM PROVIDED INSTRUCTION TO WHAT [facility] IS DOING CLINICALLY FOR HER FAMILY. CM ALLOWED RENEE TO VENT HER CONCERNS, WHILE PROVIDING EMOTIONAL SUPPORT. RENEE VOICED UNDERSTANDING AND WAS THANKFUL FOR THE INFORMATION PROVIDED. SHE REQUESTS THAT THE DR CALL HER FOR UPDATES. EMIL SPOKE WITH THE NURSE PROVIDING CARE FOR THE PATIENT AND RELAYED THE REQUEST. THE NURSES STATES THAT DR MEJIA WILL CALL AFTER HE ROUNDS ON THE PATIENT TODAY. CM TO CONTINUE ASSISTING NEEDED WITH DC PLANS/NEEDS LUISA IQBAL Coverage Notice Reviewer: [id number] Rajinder Iqbal Notice Issued Date-Time: 01/03/2020 9:00 Notice Type: Patient Choice Letter Notice Delivered To: Family Member Relationship to Patient: Daughter Aircraft Structural Fitter Name: Renee Delivery Method: PHONE - Phone Jana Days: Prior Verbal Notification: Yes Recipient Understood Notice: Yes Recipient Signature: Med Rec Note Co-signed by Attending: Coverage Notice Comment: IP rehab at [place] Reviewer: [id number] Rajinder Iqbal Notice Issued Date-Time: 12/26/2019 9:00 Notice Type: Patient Choice Letter Notice Delivered To: Family Member Relationship to Patient: Daughter Aircraft Structural Fitter Name: Renee Delivery Method: PHONE - Phone Jana Days: Prior Verbal Notification: Yes Recipient Understood Notice: Yes Recipient Signature: Med Rec Note Co-signed by Attending: Coverage Notice Comment: [facility] Reviewer: [id number] Rajinder Marshall Notice Issued Date-Time: 12/30/2019 16:10 Notice Type: Patient Choice Letter Notice Delivered To: Other Relationship to Patient: Daughter Aircraft Structural Fitter Name: Jessica Delivery Method: MAIL - Mail Jana Days: Prior Verbal Notification: Recipient Understood Notice: Recipient Signature: Med Rec Note Co-signed by Attending: Coverage Notice Comment: "Anywhere" SNF [facility] SNF Reviewer: [id number] Rajinder Iqbal Notice Issued Date-Time: 12/30/2019 16:03 Notice Type: Patient Choice Letter Notice Delivered To: Family Member Relationship to Patient: Son in Law Aircraft Structural Fitter Name: Ariel Delivery Method: PHONE - Phone Jana Days: Prior Verbal Notification: Yes Recipient Understood Notice: Yes Recipient Signature: Med Rec Note Co-signed by Attending: Coverage Notice Comment: any SNF. states it is CM job to find a facility that accepts covid. Reviewer: [id number] Rajinder Iqbal Notice Issued Date-Time: 01/03/2020 10:30 Notice Type: Patient Choice Letter Notice Delivered To: Family Member Relationship to Patient: Aircraft Structural Fitter Name: Delivery Method: PHONE - Phone Jana Days: Prior Verbal Notification: Yes Recipient Understood Notice: Yes Recipient Signature: Med Rec Note Co-signed by Attending: Coverage Notice Comment: received call from Whitney to send referral to [facility] IP rehab Last DP export: 01/03/20 9:43 a Patient Name: DOMINIC PERALTA Page [phone] at 1115 All edits/amendments must be made on the electronic document DICTATION DATE: 01/03/201113 MASTER MERCHANDISER: RODNEY 01/03/201113 RPT#: [id number] DC DATE: STATUS: ADM IN [facility] [address] [place] [address] END OF REPORT
--- NOTE | 2020-01-03 11:21 | NUR ---
PATIENTS SON IN LAW CALLED AND STATED THAT THE PATIENT IS TEXTING HIM AND WANTING SOMETHING TO HELP HIS CONGESTION, HE IS HAVING PROBLEMS WITH THICK SECRETIONS. PATIENT IS ON MUCINEX BID AND BREATHING TREATMENTS. PATIENT CONTINUES TO BE ON THE CALL LIGHT EVERY 15 MINUTES. STAFF ATTEMPTING TO CLUSTER CARE DUE TO COVID PRECAUTIONS, PATIENT CONTINUES TO DISREGARD STAFF REQUEST TO CLUSTER CARES.
--- NOTE | 2020-01-03 11:34 | NUR ---
FSBS 291. 10 UNITS HUMULIN ADMINISTERED PER SLIDING SCALE.
--- NOTE | 2020-01-03 12:30 | MORECARE ---
CASE MANAGEMENT DISCHARGE SUMMARY PATIENT: DOMINIC PERALTA UNIT: [id number] ADM DATE: 12/24/19 AGE: 69 : 46 SEX: M ROOM/BED: D.2136 AUTHOR: CÉSAR,DOC PHYSICIAN: REFERRING PHYSICIAN: LISSETTE MCCOLLUM MD DATE OF SERVICE: 01/03/20 Discharge Plan Patient Name: DOMINIC PERALTA Facility: [facility]:[place] : 1950 Planned Disposition: Anticipated Discharge Date: Discharge Date: Expected LOS: Initial Reviewer: [id number] Initial Review Date: 12/24/2019 Generated: 01/03/20 1:29 pm Comments DCP- Discharge Planning Updated by [id number]: Luisa Iqbal on 01/03/20 11:[address] CM received call from Dalia at [facility] rehab. Dalia states since pt is Covid positive the facility will require 2 negative covid tests prior to e admitted. Cm called Whitney to update status. Whitney stated to prepare a PASR for [facility], and sent updated medication list. Luisa Iqbal DCP- Discharge Planning Updated by [id number]: Luisa Iqbal on 01/03/20 10:[address] Late Entry 1030 CM received call from Whitney in stating the patient family requests referral to [facility] rehab. CM called Vicky at [phone] and faxed referral. CM will wait for determination. Luisa HO,RN DCP- Discharge Planning Updated by [id number]: Luisa Iqbal on 01/03/20 9:[address] CM received call from Whitney in . Whitney stated she is on the phone with the pts son in law who is requesting dc disposition. Provided updates. Luisa Iqbal DCP- Discharge Planning Updated by [id number]: Luisa Iqbal on 01/03/20 9:[address] CM called [facility] rehab at [phone] and left a message with Vicky about referral Cm faxed clinical to [phone] and will await return call. Luisa Iqbal MSN,RN,CM DCP- Discharge Planning Updated by [id number]: Luisa Iqbal on 01/03/20 8:[address] CM attempted to call [facility] rehab at [phone] for referral. CM unable to reach at this time. Will continue to reach out per request. Luisa Iqbal DCP- Discharge Planning Updated by [id number]: Luisa Iqbal on 01/03/20 8:[address] Received call from Luisa Marshall stating she received a call from pt daughter Sarah requesting a referral to IP rehab at [facility], and the patient be retested for covid. CM spoke with Arvin FISH about the covi test. CM faxed referral per request to [facility] rehab. Luisa Iqbal MSN,RN,CM DCP- Discharge Planning Updated by [id number]: Luisa Marshall on 12/30/19 4:[address] Late entry: 1310 CM received call from Sarah Chavez with [facility] stating she had received a call from patient's daughter about some concerns she had. CM gave report to Sarah about patient's status per today's pulmonology progress note and family medicine progress note. CM answered Sarah's questions about status of discharge planning. Explained that [facility] and [facility] have both declined patient, need to know from family what other SNF they would allow CM to refer to. 15:34 CM received second call from Sarah Chavez with [facility] stating she had spoken with the family again and they told her that they weren't going to tell CM where to send the referral to, "that's their job". Sarha instructed CM to send SNF referral anywhere. 16:[address] Day who informed CM that he spoke with daughter, Jessica, who stated she spoke with someone at [facility] and she wants CM to send referral there. Stated they were going to accept patient with anticipated DC Thursday. CM called [facility]. Spoke with Cassie about referral. Faxed records as requested. Awaiting determination. DCP- Discharge Planning Updated by [id number]: Luisa Iqbal on 12/30/19 3:[address] CM RECIEVED CALL FROM ARIEL ALFARO. DOMINIC STATED CM, DR, NURSING, AND ADMINITISTRATION HAS DONE NOTHING FOR HIS FATHER. STATED HE HAD TO YELL AND SCREAM TO GET HIS MOTHER TRANSFERED, AND HE IS NOT AFRAID OF COMMING TO THE HOSPITAL TO GET HIS FATHER TRANSFERED WELL. CM STATED HOW [facility] WAS NOTIFIED THIS AM, AND WHAT WAS DONE TO GET PT TRANSFERED. TODAY. DOMINIC SALGADOW TO YELL AT STATING HE DOES NOT UNDERSTAND HOW CM CAN DO NOTHING FOR HIS FATHER. STATES HE HAS A DR WHO HAS ACCEPTED HIM, BUT THE HOSPITAL WILL NOT TRANSFER HIM. CM STATES SHE WILL CONTINUE TO REACH OUT TO [facility] AND SOON THEY PROVIDE ACCEPTANCE AND AN AVALABLE BED HE WILL BE TRANSFERED REQUESTED. STATES THAT HE HAS NOT HAD A CONFERSATION WITH A DOCTOR IN 4 DAYS. AND WILL GO TO ADMINISTRATION IF HE HAS TOO. STATED THAT THE DR IS ROUNDING ON EVERY PATIENT AND CM WILL PROVIDE THE DR WITH HIS NUMBER. CM ATTEMPT TO PROVIDE REASSURANCE. CM PROVIDED DR DAY [facility] WHO STATES HE WILL SPEAK WITH THE FAMILY. LUISA HO,RN,CM DCP- Discharge Planning Updated by [id number]: Luisa Iqbal on 12/30/19 3:[address] Patient Name: DOMINIC PERALTA Admission Status: ER Accout number: [id number] Admission Date: 12-24-2019 : 1950 Admission Diagnosis:COVID-19 Attending: LISSETTE MCCOLLUM Current LOS: 6 Anticipated DC Date: Planned Disposition: Primary Insurance: MEDICARE A & B Discharge Planning Comments: Spoke with Luisa El CM who states she spoke with the family and they have provided authorization to send referrals to any facility that will accept pt with COVID. EMIL sent referrals to clinical liasons Regina for [facility] re[facility], and Kimberly for [facility], and Caroline for [facility]. EMIL will continue to assist in dc planning/needs. Kettle Firer: Luisa Iqbal DCP- Discharge Planning Updated by [id number]: Luisa Iqbal on 12/30/19 11:[address] Patient Name: DOMINIC PERLATA Admission Status: ER Accout number: [id number] Admission Date: 12-24-2019 : 1950 Admission Diagnosis:COVID-19 Attending: LISSETTE MCCOLLUM Current LOS: 6 Anticipated DC Date: Planned Disposition: Primary Insurance: MEDICARE A & B Discharge Planning Comments: CM spoke with Regina from [facility] who states they are not able to accept the patient into that facility. States there is a facility in [place] who is accepting Covid positive patients at this time. EMIL will have Luisa CRAWFORD MGR to relay that that information to the family. Luisa Iqbal Kettle Firer: Luisa Iqbal DCP- Discharge Planning Updated by [id number]: Luisa Iqbal on 12/30/19 8:[address] Late Entry assessment competed at 1530 12/29/19 CM received a call from Hui at the access team at [facility] with a determination that they are unable to accept the patient because it is a lateral transfer. Hui states she has received several calls about the transfer and [facility] is unable to accept the patient, and the facility would prefer not to receive any more calls regarding this patient unless his condition deteriorates. Emil spoke with Dr. Day regarding the determination. Dr. Day stated he would call the family and update. Luisa Iqbal DCP- Discharge Planning Updated by [id number]: Luisa Iqbal on 12/29/19 1:[address] CM CALLED HUI AT [facility] TRANSF[facility] [place] AT [phone] ABOUT PENDING TRANSFER. SHE STATED THAT SHE HAS NOT RECIEVED THE FAX. CONFIRMED FAX NUMBER OF [phone]. SHE STATES SHE IS NOT ABLE TO RECIEVE ELECTRONIC FAXES AT THIS TIME. EMIL REFAXED FACE SHEET TO [phone]. EMIL MANUALLY FAXED CLINICALS. PROVIDED CM DIRECT LINE, AND THE NURSES STATION NUMBER IF A BED OPEN UP. LUISA IQBAL DCP- Discharge Planning Updated by [id number]: Luisa Iqbal on 12/29/19 7:[address] Patient Name: DOMINIC PERALTA Encounter No: [id number] : 1950 Primary Insurance: MEDICARE A & B Anticipated DC Date: Planned Disposition: External Planned Provider: : DCP follow-up note: EMIL was asked to called Pt daughter Jessica at [phone]. Emil called Jessica who was very upset. Jessica began yelling as soon as EMIL initiated conversation. Jessica states that her father is not being cared for. States since this hospital is not able to provide PT she fears her father will decline at a rapid rate. She demands that CM call [facility] and get him transferred to a higher level of care. CM called section housekeeper for update then called [facility] transfer team at [phone] and spoke to Keely CRAFT. CM provided clinical representation, and Keely states she will call CM for bed availability. CM will call pt family for updates as they arise. Case management will follow and assist as needed. Luisa qIbal DCP- Discharge Planning Updated by [id number]: Ariel Strange on 12/28/19 3:[address] Patient Name: DOMINIC PERALTA Encounter No: [id number] : 1950 Primary Insurance: MEDICARE A & B Anticipated DC Date: Planned Disposition: External Planned Provider: : DCP follow-up note: TC to Regina. Regina states that she received fax and will contact us with placement if possible. Will continue to follow Ariel Strange DCP- Discharge Planning Updated by [id number]: Ariel Strange on 12/28/19 1:[address] Patient Name: DOMINIC PERALTA Encounter No: [id number] : 1950 Primary Insurance: MEDICARE A & B Anticipated DC Date: Planned Disposition: External Planned Provider: : DCP follow-up note: Spoke with Regina Perry who coordinates with [facility]. Regina states that the patient should be able to transfer to [facility] and has reviewed previous clinicals sent. Will traditionally fax latest progress notes and medication list per request via. Will continue to follow. Ariel Strange DCP- Discharge Planning Updated by [id number]: Luisa Iqbal on 12/27/19 5:[address] Cm spoke with Regina from [facility] who states they are looking at the clinicals. They will get back with CM with determination. Luisa Iqbal DCP- Discharge Planning Updated by [id number]: Luisa Iqbal on 12/26/19 7:[address] Patient Name: DOMINIC PERALTA Admission Status: ER Accout number: [id number] Admission Date: 12-24-2019 : 1950 Admission Diagnosis:COVID-19 Attending: LISSETTE MCCOLLUM Current LOS: 2 Anticipated DC Date: Planned Disposition: Primary Insurance: MEDICARE A & B Discharge Planning Comments: CM called pt dtr Renee at [phone] about dc planning. CM educated patient on the CM role and verbal consent given by patient to complete assessment. CM verified patient's address, phone number, and emergency contact phone numbers. Patient lives at home with his in a basement apartment at their sons house. Renee voiced concerns over her father's Parkinson's disease and the increased weakness he has. States her and her siblings may not be able to care for him upon dc. Renee mad a 3 way call with CM and her siblings so that each family member can speak about concerns. CM spoke to family about SNF, HH, PT, and private CG. Each states that their parents do not have enough money to afford private duty care. And they all need to work and are unable to provide 24 hour care. CM provided details of finding a SNF with [facility]. They stated they will think about a SNF and return a call to . Later this afternoon CM received a call from Renee stating the family is in agreement for SNF. Renee stated she called [facility] who will look at the clinical information. CM faxed clinicals to [facility] as requested. CM will continue to follow and will assist as needed with dc plans/needs. Kettle Firer: Luisa Iqbal DCP- Discharge Planning Updated by [id number]: Luisa Iqbal on 12/26/19 7:[address] LATE ENTRY. CONVERSATION OCCURED 12/25/19 CM RECIEVED A CALL FROM PT DAUGHTER RENEE ([phone]) WHO DEMANDS HER MOTHER AND FATHER BE SENT TO [facility] FOR A HIGHER LEVEL OF CARE. SHE STATES THEY ARE A [facility] AND THEY HAVE ACCESS TO [facility] IF HER FAMILY REQUIRES IT. CM EDUCATED RENEE ON WHAT CONSTITUTES A HIGHER LEVEL OF CARE. SHE STATES SHE HAS DR AGARWAL WHO WILL ACCEPT HER AND WANTS THE AMBULANCE RIDE COVERED BY INSURANCE SINCE IT IS A HIGHER LEVEL OF CARE. CM REINFORCED THAT IT IS A LATERAL TRANSFER. THE SERVICES PROVIDED TO HER PARENTS ARE THE SAME IT WOULD BE AT [facility], AND INSURANCE WILL NOT PAY FOR TRANSPORT. 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 SHE STATES SHE IS THEIR ONLY ADVOCATE IS TERRIFIED FOR THEIR LIVES. CM PROVIDED INSTRUCTION TO WHAT [facility] IS DOING CLINICALLY FOR HER FAMILY. CM ALLOWED RENEE TO VENT HER CONCERNS, WHILE PROVIDING EMOTIONAL SUPPORT. RENEE VOICED UNDERSTANDING AND WAS THANKFUL FOR THE INFORMATION PROVIDED. SHE REQUESTS THAT THE DR CALL HER FOR UPDATES. CM SPOKE WITH THE NURSE PROVIDING CARE FOR THE PATIENT AND RELAYED THE REQUEST. THE NURSES STATES THAT DR MEJIA WILL CALL AFTER HE ROUNDS ON THE PATIENT TODAY. CM TO CONTINUE ASSISTING NEEDED WITH DC PLANS/NEEDS LUISA IQBAL Coverage Notice Reviewer: [id number] Rajinder Iqbal Notice Issued Date-Time: 01/03/2020 9:00 Notice Type: Patient Choice Letter Notice Delivered To: Family Member Relationship to Patient: Daughter Guard Rail Installer Name: Renee Delivery Method: PHONE - Phone Jana Days: Prior Verbal Notification: Yes Recipient Understood Notice: Yes Recipient Signature: Med Rec Note Co-signed by Attending: Coverage Notice Comment: IP rehab at [place] Reviewer: [id number] Rajinder Iqbal Notice Issued Date-Time: 12/26/2019 9:00 Notice Type: Patient Choice Letter Notice Delivered To: Family Member Relationship to Patient: Daughter Guard Rail Installer Name: Renee Delivery Method: PHONE - Phone Jana Days: Prior Verbal Notification: Yes Recipient Understood Notice: Yes Recipient Signature: Med Rec Note Co-signed by Attending: Coverage Notice Comment: [facility] Reviewer: [id number] Rajinder Marshall Notice Issued Date-Time: 12/30/2019 16:10 Notice Type: Patient Choice Letter Notice Delivered To: Other Relationship to Patient: Daughter Guard Rail Installer Name: Jessica Delivery Method: MAIL - Mail Jana Days: Prior Verbal Notification: Recipient Understood Notice: Recipient Signature: Med Rec Note Co-signed by Attending: Coverage Notice Comment: "Anywhere" SNF [facility] Reviewer: [id number] Rajinder Iqbal Notice Issued Date-Time: 12/30/2019 16:03 Notice Type: Patient Choice Letter Notice Delivered To: Family Member Relationship to Patient: Son in Law Guard Rail Installer Name: Ariel Delivery Method: PHONE - Phone Jana Days: Prior Verbal Notification: Yes Recipient Understood Notice: Yes Recipient Signature: Med Rec Note Co-signed by Attending: Coverage Notice Comment: any SNF. states it is CM job to find a facility that accepts covid. Reviewer: [id number] - Luisa Iqbal Notice Issued Date-Time: 01/03/2020 10:30 Notice Type: Patient Choice Letter Notice Delivered To: Family Member Relationship to Patient: Guard Rail Installer Name: Delivery Method: PHONE - Phone Jana Days: Prior Verbal Notification: Yes Recipient Understood Notice: Yes Recipient Signature: Med Rec Note Co-signed by Attending: Coverage Notice Comment: received call from Whitney to send referral to [facility] rehab Last DP export: 01/03/20 10:15 a Patient Name: DOMINIC PERALTA Page [id number] at 1230 All edits/amendments must be made on the electronic document DICTATION DATE: 01/03/20 1229 PROPOSAL CONSULTANT: RODNEY 01/03/20 1229 RPT#: [id number] DC DATE: STATUS: ADM IN [facility] [address] [place] [address] END OF REPORT
--- NOTE | 2020-01-03 12:48 | NUR ---
Nutrition Follow-up: Pt in droplet isolation; covid-19+. Chart reviewed. Eating well. Awaiting placement. Diet: Diabetic PO intake: 100% x 6 meals Wt: 275# (12/27) Labs noted: Glu 232, Ca 8.2 Meds noted: zinc sulfate, vit D, vit C, Humulin, Pepcid, electrolyte protocol -RD following.
[2020-01-03 14:22] LABS: BASOPHILS 0 % (0-2); EOSINOPHILS 1.1 % (0-7); HEMOGLOBIN 12.1 g/dL (13.5-17.5); IMMATURE GRANULOCYTES 2.6 % (0-5); LYMPHOCYTES 7.5 % (15-50); MCH 27.9 pg (26.0-34.0); MCHC 31.8 g/dL (31.0-37.0); MCV 87.8 fL (80.0-100.0); MEAN PLATELET VOLUME 8.8 fL (7.4-10.4); MONOCYTES 6.7 % (2-11); NEUTROPHILS 82.1 % (40-80); PLATELET COUNT 240 10x3/uL (130-400); RBC 4.33 10x6/uL (4.20-6.10); RDW 15.5 % (11.5-14.5); WBC 6.5 10x3/uL (4.8-10.8)
--- NOTE | 2020-01-03 14:22 | MORECARE ---
CASE MANAGEMENT DISCHARGE SUMMARY PATIENT: DOMINIC PERALTA UNIT: [id number] ADM DATE: 12/24/19 AGE: 69 : 46 SEX: M ROOM/BED: D.2134 AUTHOR: CÉSAR,DOC PHYSICIAN: REFERRING PHYSICIAN: LISSETTE MCCOLLUM MD DATE OF SERVICE: 01/03/20 Discharge Plan Patient Name: DOMINIC PERALTA Facility: [facility] : 1950 Planned Disposition: Anticipated Discharge Date: Discharge Date: Expected LOS: Initial Reviewer: [email or web address] Initial Review Date: 12/24/2019 Generated: 01/03/20 3:21 pm Comments DCP- Discharge Planning Updated by [id number]: Luisa Iqbal on 01/03/20 11:[address] CM received call from Dalia at [facility]. Dalia states since pt is Covid positive the facility will require 2 negative covid tests prior to e admitted. Cm called Whitney to update status. Whitney stated to prepare a PASR for [facility], and sent updated medication list. Luisa Iqbal DCP- Discharge Planning Updated by [id number]: Luisa Iqbal on 01/03/20 10:[address] Late Entry 1030 CM received call from Whitney in stating the patient family requests referral to [facility] rehab. CM called Vicky at [phone] and faxed referral. CM will wait for determination. Luisa HO,RN DCP- Discharge Planning Updated by [id number]: Luisa Iqbal on 01/03/20 9:[address] CM received call from Whitney in . Whitney stated she is on the phone with the pts son in law who is requesting dc disposition. Provided updates. Luisa Iqbal DCP- Discharge Planning Updated by [id number]: Luisa Iqbal on 01/03/20 9:[address] CM called [facility] rehab at [phone] and left a message with Vicky about referral Cm faxed clinical to [phone] and will await return call. Luisa Iqbal MSN,RN,CM DCP- Discharge Planning Updated by [id number]: Luisa Iqbal on 01/03/20 8:[address] CM attempted to call [facility] at [phone] for referral. CM unable to reach at this time. Will continue to reach out per request. Luisa Iqbal DCP- Discharge Planning Updated by [id number]: Luisa Iqbal on 01/03/20 8:[address] Received call from Luisa Marshall stating she received a call from pt daughter Sarah requesting a referral to IP rehab at [facility], and the patient be retested for covid. CM spoke with Arvin FISH about the covi test. CM faxed referral per request to [facility]. Luisa Iqbal MSN,RN,CM DCP- Discharge Planning Updated by [id number]: Luisa Marshall on 12/30/19 4:[address] Late entry: 1310 CM received call from Sarah Chavez with [facility] stating she had received a call from patient's daughter about some concerns she had. CM gave report to Sarah about patient's status per today's pulmonology progress note and family medicine progress note. CM answered Sarah's questions about status of discharge planning. Explained that [facility] and [facility] have both declined patient, need to know from family what other SNF they would allow CM to refer to. 15:34 CM received second call from Sarah Chavez with [facility] stating she had spoken with the family again and they told her that they weren't going to tell CM where to send the referral to, "that's their job". Sarah instructed CM to send SNF referral anywhere. 16:[address] Day who informed CM that he spoke with daughter, Jessica, who stated she spoke with someone at [facility] and she wants CM to send referral there. Stated they were going to accept patient with anticipated DC Thursday. CM called [facility]. Spoke with Cassie about referral. Faxed records as requested. Awaiting determination. DCP- Discharge Planning Updated by [email or web address]: Luisa Iqbal on 12/30/19 3:[address] CM RECIEVED CALL FROM ARIEL ALFARO. DOMINIC STATED CM, DR, NURSING, AND ADMINITISTRATION HAS DONE NOTHING FOR HIS FATHER. STATED HE HAD TO YELL AND SCREAM TO GET HIS MOTHER TRANSFERED, AND HE IS NOT AFRAID OF COMMING TO THE HOSPITAL TO GET HIS FATHER TRANSFERED WELL. CM STATED HOW [facility] NOTIFIED THIS AM, AND WHAT WAS DONE TO GET PT TRANSFERED. TODAY. DOMINIC SALGADOW TO YELL AT STATING HE DOES NOT UNDERSTAND HOW CM CAN DO NOTHING FOR HIS FATHER. STATES HE HAS A DR WHO HAS ACCEPTED HIM, BUT THE HOSPITAL WILL NOT TRANSFER HIM. CM STATES SHE WILL CONTINUE TO REACH OUT TO [facility] AND SOON THEY PROVIDE ACCEPTANCE AND AN AVALABLE BED HE WILL BE TRANSFERED REQUESTED. STATES THAT HE HAS NOT HAD A CONFERSATION WITH A DOCTOR IN 4 DAYS. AND WILL GO TO ADMINISTRATION IF HE HAS TOO. STATED THAT THE DR IS ROUNDING ON EVERY PATIENT AND CM WILL PROVIDE THE DR WITH HIS NUMBER. CM ATTEMPT TO PROVIDE REASSURANCE. CM PROVIDED DR [facility] WHO STATES HE WILL SPEAK WITH THE FAMILY. LUISA HO,RN,CM DCP- Discharge Planning Updated by [id number]: Luisa Iqbal on 12/30/19 3:[address] Patient Name: DOMINIC PERALTA Admission Status: ER Accout number: [id number] Admission Date: 12-24-2019 : 1950 Admission Diagnosis:COVID-19 Attending: LISSETTE MCCOLLUM Current LOS: 6 Anticipated DC Date: Planned Disposition: Primary Insurance: MEDICARE A & B Discharge Planning Comments: Spoke with Luisa El CM who states she spoke with the family and they have provided authorization to send referrals to any facility that will accept pt with COVID. EMIL sent referrals to clinical liasons Regina for [facility], and Kimberly for [facility], and Caroline for [facility]. EMIL will continue to assist in dc planning/needs. Tune Up Mechanic: Luisa Ibqal DCP- Discharge Planning Updated by [id number]: Luisa Iqbal on 12/30/19 11:[address] Patient Name: DOMINIC PERALTA Admission Status: ER Accout number: [id number] Admission Date: 12-24-2019 : 1950 Admission Diagnosis:COVID-19 Attending: LISSETTE MCCOLLUM Current LOS: 6 Anticipated DC Date: Planned Disposition: Primary Insurance: MEDICARE A & B Discharge Planning Comments: CM spoke with Regina from [facility] who states they are not able to accept the patient into that facility. States there is a facility in [place] who is accepting Covid positive patients at this time. EMIL will have Luisa CRAWFORD MGR to relay that that information to the family. Luisa Iqbal Tune Up Mechanic: Luisa Iqbal DCP- Discharge Planning Updated by [id number]: Luisa Iqbal on 12/30/19 8:[address] Late Entry assessment competed at 1530 12/29/19 CM received a call from Hui at the access team at [facility] with a determination that they are unable to accept the patient because it is a lateral transfer. Hui states she has received several calls about the transfer and [facility] is unable to accept the patient, and the facility would prefer not to receive any more calls regarding this patient unless his condition deteriorates. Emil spoke with Dr. Day regarding the determination. Dr. Day stated he would call the family and update. Luisa Iqbal DCP- Discharge Planning Updated by [id number]: Luisa Iqbal on 12/29/19 1:[address] CM CALLED HUI AT [facility]SF[facility] AT [phone] ABOUT PENDING TRANSFER. SHE STATED THAT SHE HAS NOT RECIEVED THE FAX. CONFIRMED FAX NUMBER OF [phone]. SHE STATES SHE IS NOT ABLE TO RECIEVE ELECTRONIC FAXES AT THIS TIME. EMIL REFAXED FACE SHEET TO [phone]. EMIL MANUALLY FAXED CLINICALS. PROVIDED CM DIRECT LINE, AND THE NURSES STATION NUMBER IF A BED OPEN UP. LUISA IQBAL DCP- Discharge Planning Updated by [id number]: Luisa Iqbal on 12/29/19 7:[address] Patient Name: DOMINIC PERALTA Encounter No: [id number] : 1950 Primary Insurance: MEDICARE A & B Anticipated DC Date: Planned Disposition: External Planned Provider: : DCP follow-up note: EMIL was asked to called Pt daughter Jessica at [phone]. Emil called Jessica who was very upset. Jessica began yelling as soon as EMIL initiated conversation. Jessica states that her father is not being cared for. States since this hospital is not able to provide PT she fears her father will decline at a rapid rate. She demands that CM call [facility] and get him transferred to a higher level of care. CM called warehouse consultant for update then called [facility] transfer team at [phone] and spoke to Keely CRAFT. CM provided clinical representation, and Keely states she will call CM for bed availability. CM will call pt family for updates as they arise. Case management will follow and assist as needed. Luisa Iqbal DCP- Discharge Planning Updated by [email or web address]: Ariel Strange on 12/28/19 3:[address] Patient Name: DOMINIC PERALTA Encounter No: [id number] : 1950 Primary Insurance: MEDICARE A & B Anticipated DC Date: Planned Disposition: External Planned Provider: : DCP follow-up note: TC to Regina. Regina states that she received fax and will contact us with placement if possible. Will continue to follow Ariel Strange DCP- Discharge Planning Updated by [id number]: Ariel Strange on 12/28/19 1:[address] Patient Name: DOMINIC PERALTA Encounter No: [id number] : 1950 Primary Insurance: MEDICARE A & B Anticipated DC Date: Planned Disposition: External Planned Provider: : DCP follow-up note: Spoke with Regina Perry who coordinates with [place]. Regina states that the patient should be able to transfer to [facility] and has reviewed previous clinicals sent. Will traditionally fax latest progress notes and medication list per request via. Will continue to follow. Ariel Strange DCP- Discharge Planning Updated by [id number]: Luisa Iqbal on 12/27/19 5:[address] Cm spoke with Regina from [facility] who states they are looking at the clinicals. They will get back with CM with determination. Luisa Iqbal DCP- Discharge Planning Updated by [id number]: Luisa Iqbal on 12/26/19 7:[address] Patient Name: DOMINIC PERALTA Admission Status: ER Accout number: [id number] Admission Date: 12-24-2019 : 1950 Admission Diagnosis:COVID-19 Attending: LISSETTE MCCOLLUM Current LOS: 2 Anticipated DC Date: Planned Disposition: Primary Insurance: MEDICARE A & B Discharge Planning Comments: CM called pt dtr Renee at [phone] about dc planning. CM educated patient on the CM role and verbal consent given by patient to complete assessment. CM verified patient's address, phone number, and emergency contact phone numbers. Patient lives at home with his in a basement apartment at their sons house. Renee voiced concerns over her father's Parkinson's disease and the increased weakness he has. States her and her siblings may not be able to care for him upon dc. Renee mad a 3 way call with CM and her siblings so that each family member can speak about concerns. CM spoke to family about SNF, HH, PT, and private CG. Each states that their parents do not have enough money to afford private duty care. And they all need to work and are unable to provide 24 hour care. CM provided details of finding a SNF with [facility]. They stated they will think about a SNF and return a call to . Later this afternoon CM received a call from Renee stating the family is in agreement for SNF. Renee stated she called [facility] who will look at the clinical information. CM faxed clinicals to [facility] as requested. CM will continue to follow and will assist as needed with dc plans/needs. Tune Up Mechanic: Luisa Iqbal DCP- Discharge Planning Updated by [id number]: Luisa Iqbal on 12/26/19 7:[address] LATE ENTRY. CONVERSATION OCCURED 12/25/19 CM RECIEVED A CALL FROM PT DAUGHTER RENEE ([phone]) WHO DEMANDS HER MOTHER AND FATHER BE SENT TO [email or web address] FOR A HIGHER LEVEL OF CARE. SHE STATES THEY ARE A [facility] AND THEY HAVE ACCESS TO [facility] IF HER FAMILY REQUIRES IT. CM EDUCATED RENEE ON WHAT CONSTITUTES A HIGHER LEVEL OF CARE. SHE STATES SHE HAS DR AGARWAL WHO WILL ACCEPT HER AND WANTS THE AMBULANCE RIDE COVERED BY INSURANCE SINCE IT IS A HIGHER LEVEL OF CARE. CM REINFORCED THAT IT IS A LATERAL TRANSFER. THE SERVICES PROVIDED TO HER PARENTS ARE THE SAME IT WOULD BE AT [email or web address]], AND INSURANCE WILL NOT PAY FOR TRANSPORT. 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 SHE STATES SHE IS THEIR ONLY ADVOCATE IS TERRIFIED FOR THEIR LIVES. CM PROVIDED INSTRUCTION TO WHAT [facility] IS DOING CLINICALLY FOR HER FAMILY. CM ALLOWED RENEE TO VENT HER CONCERNS, WHILE PROVIDING EMOTIONAL SUPPORT. RENEE VOICED UNDERSTANDING AND WAS THANKFUL FOR THE INFORMATION PROVIDED. SHE REQUESTS THAT THE DR CALL HER FOR UPDATES. CM SPOKE WITH THE NURSE PROVIDING CARE FOR THE PATIENT AND RELAYED THE REQUEST. THE NURSES STATES THAT DR MEJIA WILL CALL AFTER HE ROUNDS ON THE PATIENT TODAY. CM TO CONTINUE ASSISTING NEEDED WITH DC PLANS/NEEDS LUISA IQBAL External Providers External Provider: KALEN Snowden Next Contact Date: Service Request Date: Service Type: Resolution: Reviewer: Comments: Coverage Notice Reviewer: [id number] Rajinder Iqbal Notice Issued Date-Time: 01/03/2020 9:00 Notice Type: Patient Choice Letter Notice Delivered To: Family Member Relationship to Patient: Daughter Exhibit Specialist Name: Renee Delivery Method: PHONE - Phone Jana Days: Prior Verbal Notification: Yes Recipient Understood Notice: Yes Recipient Signature: Med Rec Note Co-signed by Attending: Coverage Notice Comment: IP rehab at [place] Reviewer: [id number] Rajinder Iqbal Notice Issued Date-Time: 12/26/2019 9:00 Notice Type: Patient Choice Letter Notice Delivered To: Family Member Relationship to Patient: Daughter Exhibit Specialist Name: Renee Delivery Method: PHONE - Phone Jana Days: Prior Verbal Notification: Yes Recipient Understood Notice: Yes Recipient Signature: Med Rec Note Co-signed by Attending: Coverage Notice Comment: [facility] Reviewer: [id number] Rajinder Marshall Notice Issued Date-Time: 12/30/2019 16:10 Notice Type: Patient Choice Letter Notice Delivered To: Other Relationship to Patient: Daughter Exhibit Specialist Name: Jessica Delivery Method: MAIL - Mail Jana Days: Prior Verbal Notification: Recipient Understood Notice: Recipient Signature: Med Rec Note Co-signed by Attending: Coverage Notice Comment: "Anywhere" SNF [facility] Reviewer: [id number] Rajinder Iqbal Notice Issued Date-Time: 12/30/2019 16:03 Notice Type: Patient Choice Letter Notice Delivered To: Family Member Relationship to Patient: Son in Law Exhibit Specialist Name: Ariel Delivery Method: PHONE - Phone Jana Days: Prior Verbal Notification: Yes Recipient Understood Notice: Yes Recipient Signature: Med Rec Note Co-signed by Attending: Coverage Notice Comment: any SNF. states it is CM job to find a facility that accepts covid. Reviewer: [id number] Rajinder Iqbal Notice Issued Date-Time: 01/03/2020 10:30 Notice Type: Patient Choice Letter Notice Delivered To: Family Member Relationship to Patient: Exhibit Specialist Name: Delivery Method: PHONE - Phone Jana Days: Prior Verbal Notification: Yes Recipient Understood Notice: Yes Recipient Signature: Med Rec Note Co-signed by Attending: Coverage Notice Comment: received call from Whitney to send referral to [facility] rehab Last DP export: 01/03/20 11:30 a Patient Name: DOMINIC PERALTA Page [id number] at 1422 All edits/amendments must be made on the electronic document DICTATION DATE: 01/03/201421 DIRECTOR OF TECHNOLOGY: RODNEY 01/03/20 142 RPT#: [id number] DC DATE: STATUS: ADM IN [facility] [address] [place] [address] END OF REPORT
--- NOTE | 2020-01-03 14:29 | MORECARE ---
CASE MANAGEMENT DISCHARGE SUMMARY PATIENT: DOMINIC PERALTA UNIT: [id number] ADM DATE: 12/24/19 AGE: 69 : 48 SEX: M ROOM/BED: D.2133 AUTHOR: CÉSAR,DOC PHYSICIAN: REFERRING PHYSICIAN: LISSETTE MCCOLLUM MD DATE OF SERVICE: 01/03/20 Discharge Plan Patient Name: DOMINIC PERALTA [facility] [facility] 1950 Planned Disposition: Anticipated Discharge Date: Discharge Date: Expected LOS: Initial Reviewer: [id number] Initial Review Date: 12/24/2019 Generated: 01/03/20 3:29 pm Comments DCP- Discharge Planning Updated by [id number]: Luisa Iqbal on 01/03/20 1:[address] CM spoke with Dr Huston about pt family requests for additional covid test. Dr. Huston stated he can not authorize additional covid testing. CM faxed completed PASR to [employer]. Luisa Iqbal DCP- Discharge Planning Updated by [id number]: Luisa Iqbal on 01/03/20 11:[address] CM received call from Dalia at [facility]. Dalia states since pt is Covid positive the facility will require 2 negative covid tests prior to e admitted. Cm called Whitney to update status. Whitney stated to prepare a PASR for [facility], and sent updated medication list. Luisa Iqbal DCP- Discharge Planning Updated by [id number]: Luisa Iqbal on 01/03/20 10:[address] Late Entry 1030 CM received call from Whitney in stating the patient family requests referral to [facility] rehab. CM called Vicky at [phone] and faxed referral. CM will wait for determination. Luisa Iqbal MSN,RN DCP- Discharge Planning Updated by [id number]: Luisa Iqbal on 01/03/20 9:[address] CM received call from Whitney in . Whitney stated she is on the phone with the pts son in law who is requesting dc disposition. Provided updates. Luisa Iqbal DCP- Discharge Planning Updated by [id number]: Luisa Iqbal on 01/03/20 9:[address] CM called [facility] at [phone] and left a message with Vicky about referral Cm faxed clinical to [phone] and will await return call. Luisa Iqbal MSN,RN,CM DCP- Discharge Planning Updated by [id number]: Luisa Iqbal on 01/03/20 8:[address] CM attempted to call [facility] rehab at [phone] for referral. CM unable to reach at this time. Will continue to reach out per request. Luisa Iqbal DCP- Discharge Planning Updated by [id number]: Luisa Iqbal on 01/03/20 8:[address] Received call from Luisa Marshall stating she received a call from pt daughter Sarah requesting a referral to IP rehab at [facility], and the patient be retested for covid. CM spoke with Arvin FISH about the covi test. CM faxed referral per request to [facility] rehab. Luisa HO,RN,CM DCP- Discharge Planning Updated by [email or web address]: Luisa Marshall on 12/30/19 4:[address] Late entry: 1310 CM received call from Sarah Chavez with [facility] stating she had received a call from patient's daughter about some concerns she had. CM gave report to Sarah about patient's status per today's pulmonology progress note and family medicine progress note. CM answered Sarah's questions about status of discharge planning. Explained that [facility] and [facility] have both declined patient, need to know from family what other SNF they would allow CM to refer to. 15:34 CM received second call from Sarah Chavez with [facility] stating she had spoken with the family again and they told her that they weren't going to tell CM where to send the referral to, "that's their job". Sarah instructed CM to send SNF referral anywhere. 16:[address] Day who informed CM that he spoke with daughter, Jessica, who stated she spoke with someone at [facility] and she wants CM to send referral there. Stated they were going to accept patient with anticipated DC Thursday. CM called [facility]. Spoke with Cassie about referral. Faxed records as requested. Awaiting determination. DCP- Discharge Planning Updated by [id number]: Luisa Iqbal on 12/30/19 3:[address] CM RECIEVED CALL FROM ARIEL DOMINIC. DOMINIC STATED CM, DR, NURSING, AND ADMINITISTRATION HAS DONE NOTHING FOR HIS FATHER. STATED HE HAD TO YELL AND SCREAM TO GET HIS MOTHER TRANSFERED, AND HE IS NOT AFRAID OF COMMING TO THE HOSPITAL TO GET HIS FATHER TRANSFERED WELL. CM STATED HOW SCIENT[facility] WAS NOTIFIED THIS AM, AND WHAT WAS DONE TO GET PT TRANSFERED. TODAY. DOMINIC CONTINUEW TO YELL AT STATING HE DOES NOT UNDERSTAND HOW CM CAN DO NOTHING FOR HIS FATHER. STATES HE HAS A DR WHO HAS ACCEPTED HIM, BUT THE HOSPITAL WILL NOT TRANSFER HIM. CM STATES SHE WILL CONTINUE TO REACH OUT TO SCIENTOLOG[facility] AND SOON THEY PROVIDE ACCEPTANCE AND AN AVALABLE BED HE WILL BE TRANSFERED REQUESTED. STATES THAT HE HAS NOT HAD A CONFERSATION WITH A DOCTOR IN 4 DAYS. AND WILL GO TO ADMINISTRATION IF HE HAS TOO. STATED THAT THE DR IS ROUNDING ON EVERY PATIENT AND CM WILL PROVIDE THE DR WITH HIS NUMBER. CM ATTEMPT TO PROVIDE REASSURANCE. CM PROVIDED DR DAY WITH A PHONE NUMBER TO REACH ArielFOR UPDATE. WHO STATES HE WILL SPEAK WITH THE FAMILY. LUISA IQBAL MSN,RN,CM DCP- Discharge Planning Updated by [id number]: Luisa Iqbal on 12/30/19 3:[address] Patient Name: DOMINIC PERALTA Admission Status: ER Accout number: [id number] Admission Date: 12-24-2019 : 1950 Admission Diagnosis:COVID-19 Attending: LISSETTE MCCOLLUM Current LOS: 6 Anticipated DC Date: Planned Disposition: Primary Insurance: MEDICARE A & B Discharge Planning Comments: Spoke with Luisa El CM who states she spoke with the family and they have provided authorization to send referrals to any facility that will accept pt with COVID. EMIL sent referrals to clinical liasons Regina for [facility] re[facility], and Kimberly for [facility], and Caroline for [facility]. CM will continue to assist in dc planning/needs. Doughnut Machine Operator Helper: Luisa Iqbal DCP- Discharge Planning Updated by [id number]: Luisa Iqbal on 12/30/19 11:[address] Patient Name: DOMINIC PERALTA Admission Status: ER Accout number: [id number] Admission Date: 12-24-2019 : 1950 Admission Diagnosis:COVID-19 Attending: LISSETTE MCCOLLUM Current LOS: 6 Anticipated DC Date: Planned Disposition: Primary Insurance: MEDICARE A & B Discharge Planning Comments: EMIL spoke with Regina from [facility] who states they are not able to accept the patient into that facility. States there is a facility in [place] who is accepting Covid positive patients at this time. CM will have Luisa CRAWFORD MGR to relay that that information to the family. Luisa Iqbal Doughnut Machine Operator Helper: Luisa Iqbal DCP- Discharge Planning Updated by [id number]: Luisa Iqbal on 12/30/19 8:[address] Late Entry assessment competed at 1530 12/29/19 CM received a call from Hui at the access team at [facility] with a determination that they are unable to accept the patient because it is a lateral transfer. Hui states she has received several calls about the transfer and [facility] is unable to accept the patient, and the facility would prefer not to receive any more calls regarding this patient unless his condition deteriorates. Emil spoke with Dr. Day regarding the determination. Dr. Day stated he would call the family and update. Luisa Iqbal DCP- Discharge Planning Updated by [id number]: Luisa Iqbal on 12/29/19 1:[address] CM CALLED HUI AT [facility] AT [phone] ABOUT PENDING TRANSFER. SHE STATED THAT SHE HAS NOT RECIEVED THE FAX. CONFIRMED FAX NUMBER OF [phone]. SHE STATES SHE IS NOT ABLE TO RECIEVE ELECTRONIC FAXES AT THIS TIME. EMIL REFAXED FACE SHEET TO [phone]. CM MANUALLY FAXED CLINICALS. PROVIDED CM DIRECT LINE, AND THE NURSES STATION NUMBER IF A BED OPEN UP. LUISA IQBAL DCP- Discharge Planning Updated by [id number]: Luisa Iqbal on 12/29/19 7:[address] Patient Name: DOMINIC PERALTA Encounter No: [id number] : 1950 Primary Insurance: MEDICARE A & B Anticipated DC Date: Planned Disposition: External Planned Provider: : DCP follow-up note: CM was asked to called Pt daughter Jessica at [phone]. Cm called Jessica who was very upset. Jessica began yelling as soon as CM initiated conversation. Jessica states that her father is not being cared for. States since this hospital is not able to provide PT she fears her father will decline at a rapid rate. She demands that CM call [facility] and get him transferred to a higher level of care. CM called stock house worker for update then called [facility] transfer team at [phone] and spoke to Keely CRAFT. EMIL provided clinical representation, and Keely states she will call CM for bed availability. CM will call pt family for updates as they arise. Case management will follow and assist as needed. Luisa Iqbal DCP- Discharge Planning Updated by [id number]: Ariel Strange on 12/28/19 3:[address] Patient Name: DOMINIC PERALTA Encounter No: [id number] : 1950 Primary Insurance: MEDICARE A & B Anticipated DC Date: Planned Disposition: External Planned Provider: : DCP follow-up note: TC to Regina. Regina states that she received fax and will contact us with placement if possible. Will continue to follow Ariel Strange DCP- Discharge Planning Updated by [id number]: Ariel Strange on 12/28/19 1:[address] Patient Name: DOMINIC PERALTA Encounter No: [id number] : 1950 Primary Insurance: MEDICARE A & B Anticipated DC Date: Planned Disposition: External Planned Provider: : DCP follow-up note: Spoke with Regina Perry who coordinates with [facility]. Regina states that the patient should be able to transfer to [facility] and has reviewed previous clinicals sent. Will traditionally fax latest progress notes and medication list per request via. Will continue to follow. Ariel Strange DCP- Discharge Planning Updated by [id number]: Luisa Iqbal on 12/27/19 5:[address] Cm spoke with Regina from [facility] who states they are looking at the clinicals. They will get back with CM with determination. Luisa Iqbal DCP- Discharge Planning Updated by [id number]: Luisa Iqbal on 12/26/19 7:[address] Patient Name: DOMINIC PERALTA Admission Status: ER Accout number: [id number] Admission Date: 12-24-2019 : 1950 Admission Diagnosis:COVID-19 Attending: LISSETTE MCCOLLUM Current LOS: 2 Anticipated DC Date: Planned Disposition: Primary Insurance: MEDICARE A & B Discharge Planning Comments: CM called pt dtr Renee at [phone] about dc planning. CM educated patient on the CM role and verbal consent given by patient to complete assessment. CM verified patient's address, phone number, and emergency contact phone numbers. Patient lives at home with his in a basement apartment at their sons house. Renee voiced concerns over her father's Parkinson's disease and the increased weakness he has. States her and her siblings may not be able to care for him upon dc. Renee mad a 3 way call with CM and her siblings so that each family member can speak about concerns. CM spoke to family about SNF, HH, PT, and private CG. Each states that their parents do not have enough money to afford private duty care. And they all need to work and are unable to provide 24 hour care. CM provided details of finding a SNF with [facility]. They stated they will think about a SNF and return a call to . Later this afternoon CM received a call from Renee stating the family is in agreement for SNF. Renee stated she called [facility] who will look at the clinical information. CM faxed clinicals to [facility] as requested. CM will continue to follow and will assist as needed with dc plans/needs. Doughnut Machine Operator Helper: Luisa Iqbal DCP- Discharge Planning Updated by [id number]: Luisa Iqbal on 12/26/19 7:[address] LATE ENTRY. CONVERSATION OCCURED 12/25/19 CM RECIEVED A CALL FROM PT DAUGHTER RENEE ([phone]) WHO DEMANDS HER MOTHER AND FATHER BE SENT TO [facility] FOR A HIGHER LEVEL OF CARE. SHE STATES THEY ARE A [facility] AND THEY HAVE ACCESS TO [facility] IF HER FAMILY REQUIRES IT. CM EDUCATED RENEE ON WHAT CONSTITUTES A HIGHER LEVEL OF CARE. SHE STATES SHE HAS DR AGARWAL WHO WILL ACCEPT HER AND WANTS THE AMBULANCE RIDE COVERED BY INSURANCE SINCE IT IS A HIGHER LEVEL OF CARE. CM REINFORCED THAT IT IS A LATERAL TRANSFER. THE SERVICES PROVIDED TO HER PARENTS ARE THE SAME IT WOULD BE AT [facility], AND INSURANCE WILL NOT PAY FOR TRANSPORT. 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 SHE STATES SHE IS THEIR ONLY ADVOCATE IS TERRIFIED FOR THEIR LIVES. CM PROVIDED INSTRUCTION TO WHAT [facility] IS DOING CLINICALLY FOR HER FAMILY. CM ALLOWED RENEE TO VENT HER CONCERNS, WHILE PROVIDING EMOTIONAL SUPPORT. RENEE VOICED UNDERSTANDING AND WAS THANKFUL FOR THE INFORMATION PROVIDED. SHE REQUESTS THAT THE DR CALL HER FOR UPDATES. CM SPOKE WITH THE NURSE PROVIDING CARE FOR THE PATIENT AND RELAYED THE REQUEST. THE NURSES STATES THAT DR MEJIA WILL CALL AFTER HE ROUNDS ON THE PATIENT TODAY. CM TO CONTINUE ASSISTING NEEDED WITH DC PLANS/NEEDS LUISA IQBAL Coverage Notice Reviewer: [id number] Rajinder Iqbal Notice Issued Date-Time: 01/03/2020 9:00 Notice Type: Patient Choice Letter Notice Delivered To: Family Member Relationship to Patient: Daughter Mixer Tender Name: Renee Delivery Method: PHONE - Phone Jana Days: Prior Verbal Notification: Yes Recipient Understood Notice: Yes Recipient Signature: Med Rec Note Co-signed by Attending: Coverage Notice Comment: IP rehab at [place] Reviewer: [id number] Rajinder Iqbal Notice Issued Date-Time: 12/26/2019 9:00 Notice Type: Patient Choice Letter Notice Delivered To: Family Member Relationship to Patient: Daughter Mixer Tender Name: Renee Delivery Method: PHONE - Phone Jana Days: Prior Verbal Notification: Yes Recipient Understood Notice: Yes Recipient Signature: Med Rec Note Co-signed by Attending: Coverage Notice Comment: [facility] rehab Reviewer: [id number] Rajinder Marshall Notice Issued Date-Time: 12/30/2019 16:10 Notice Type: Patient Choice Letter Notice Delivered To: Other Relationship to Patient: Daughter Mixer Tender Name: Jessica Delivery Method: MAIL - Mail Jana Days: Prior Verbal Notification: Recipient Understood Notice: Recipient Signature: Med Rec Note Co-signed by Attending: Coverage Notice Comment: "Anywhere" SNF [facility] Reviewer: [id number] Rajinder Iqbal Notice Issued Date-Time: 12/30/2019 16:03 Notice Type: Patient Choice Letter Notice Delivered To: Family Member Relationship to Patient: Son in Law Mixer Tender Name: Ariel Delivery Method: PHONE - Phone Jana Days: Prior Verbal Notification: Yes Recipient Understood Notice: Yes Recipient Signature: Med Rec Note Co-signed by Attending: Coverage Notice Comment: any SNF. states it is CM job to find a facility that accepts covid. Reviewer: [id number] Rajinder Iqbal Notice Issued Date-Time: 01/03/2020 10:30 Notice Type: Patient Choice Letter Notice Delivered To: Family Member Relationship to Patient: Mixer Tender Name: Delivery Method: PHONE - Phone Jana Days: Prior Verbal Notification: Yes Recipient Understood Notice: Yes Recipient Signature: Med Rec Note Co-signed by Attending: Coverage Notice Comment: received call from Whitney to send referral to [facility] re[facility] Last DP export: 01/03/20 1:22 p Patient Name: DOMINIC PERALTA Page [id number] at 1429 All edits/amendments must be made on the electronic document DICTATION DATE: 01/03/201428 HOSPITALITY MANAGER: RODNEY 01/03/20 1429 RPT#: [id number] DC DATE: STATUS: ADM IN [facility] [address] [place] [address] END OF REPORT
--- NOTE | 2020-01-03 15:25 | NUR ---
ASSISTED PATIENT TO REPOSITION AND SCOOT UP IN BED. CALL LIGHT WITHIN REACH. DENIES ANY FURTHER NEEDS AT THIS TIME.
[2020-01-03 15:59] VITALS: BP 158/79
--- NOTE | 2020-01-03 16:23 | NUR ---
FSBS 436. 20 UNITS HUMULIN R ADMINISTERED PER SLIDING SCALE. SULFURIC ACID PLANT OPERATOR TORRES NOTIFIED, WAITING ANY NEW ORDERS.
--- NOTE | 2020-01-03 16:42 | NUR ---
NO NEW ORDERS FOR ADDITIONAL INSULIN.
--- NOTE | 2020-01-03 17:11 | NUR ---
PATIENTS DAUGHTER AT THIS TIME AND WANTED TO KNOW WHY HER FATHER HAS NOT BEEN OUT OF BED, THEY WERE TOLD THAT PATIENT WOULD BE OOB 4X DAILY AND THAT 6 PEOPLE WOULD BE AVAILABLE AT ALL TIMES TO GET HIM OOB PER DR. RIZZO. PATEINTS DAUGHTER ALSO STATED THAT TOLD HER THAT A SPECIAL LIFT HAS BEEN ORDERED FOR HIS ROOM AND TO HER KNOWLEDGE THE LIFT IS NOT IN THE ROOM. THIS TOWBOAT ENGINEER HAS NO KNOWLEDGE OR ORDERS TO HAVE PATIENT OOB 4X DAILY OR FOR SPECIAL LIFT. THIS TOWBOAT ENGINEER INFORMED THE DAUGHTER THAT THOMAS WITH PT DID GO IN AND EVALUATE THE PATIENT TO SEE WHAT ALL HE CAN DO AND THE DAUGHTER STATED 5 MINUTES AT BEDSIDE HAVING HIM WIGGLE HIS TOES IS NOT A PT EVALUATION AND IF WE WANT TO PLAY THIS GAME LIKE THIS, THEN SO BE IT. THIS NURSE ASKED PATIENT DAUGHTER TO PLEASE NOT BE HATEFUL, TIME OF A PT EVALUATION VARIES AND THIS TOWBOAT ENGINEER WAS NOT AT BEDSIDE WHEN PT EVALUATION WAS COMPLETE. PATIENTS DAUGHTER CONTINUES TO BE HATEFUL AND THIS TOWBOAT ENGINEER ASKED PATIENTS DAUGHTER TO PLEASE HOLD WHILE BASS SINGER IS RETRIEVED THIS TOWBOAT ENGINEER IS UNABLE TO APPROPRIATELY ANSWER AND FULFIL THEIR REQUESTS. BASS SINGER AT STATION NOW TO ASSIST WITH PATIENTS DAUGHTER ON PHONE.
--- NOTE | 2020-01-03 17:34 | NUR ---
GROVER (SON IN LAW) OF PATIENT TO CALL COMPLAINING WHY THE LIFT WAS NOT ORDERED AND OUT OF BED 4X A DAY PER DR RIZZO. I TOLD HIM THAT I DID NOT KNOW WHY IT WAS NOT ORDERED. I OFFERED TO PAGE THE PHYSICAL SECURITY ENGINEER (KATELYNN) AND LET HIM TALK TO THE DR ABOUT IT. HE STARTED TALKING LOUDLY ON THE PHONE TO ME ABOUT WHY OUR DOCTORS AND NURSES CAN NOT COMMUNICATE WITH EACH OTHER R/T ORDERS, ETC. I TOOK HIS NUMBER DOWN AND TOLD HIM I WOULD HAVE SOMEONE FROM AD[facility] CALL HIM ([phone]). HE WANTS THE KILN DOOR BUILDER TO CALL HIM HE SAID HE SPOKE TO HIM EARILER IN THE WEEK. I PAGED KATELYNN AND INFORMED HIM OF THIS CONVERSATION AND WHAT DR RIZZO POSSIBLY TOLD THE FAMILY MEMBER. FAMILY MEMBER ALSO ASKED HOW LONG A PT EVAL SHOULD LAST, I TOLD HIM THAT I HONESTLY DID NOT KNOW AND WAS GOING TO READ HIM THE NOTES, HE CUT ME OFF AND DID NOT WANT TO HEAR IT. WHEN I CALLED THE PATIENT BACK AND TOLD HIM THAT ADMIN WOULD CALL HIM, HE ASKED HOW LONG IT WOULD BE AND I TOLD HIM I DID NOT KNOW. HE STARTED TALKING VERY LOUDLY AGAIN AND I POLITLY TOLD HIM THAT I NEEDED TO DO SOME PATIENT CARE AND THANKED HIM FOR THE CALL AND HUNG UP. CIRA BASS, RN WAS SITTING NEXT TO ME DURING THIS CONVERSATION I HAD THE PHONE AWAY FROM MY EAR HE WAS TALKING VERY LOUDLY.
--- NOTE | 2020-01-03 19:00 | NUR ---
REPORT RECEIVED, WILL CONTINUE POC. PATIENT IS AAOX4, SITTING UP IN BED. NO S/S OF DISTRESS OBSERVED, RR EVEN AND UNLABORED ON ROOM AIR. PIV TO LT FA, SL. PATIENT DENIES FURTHER NEEDS AT THIS TIME. CL IN REACH, BED LOCKED AND LOWERED. COVID 19 PRECAUTIONS MAINTAINED. WILL CTM.
[2020-01-03 20:00] VITALS: BP 162/80
--- NOTE | 2020-01-03 22:00 | NUR ---
PATIENT INCONTINENT OF BM. NAVAL ARCHITECT'S PERFORMED PERICARE AND CHANGED BED PADS. CONDOM CATH NOT WORKING PROPERLY.
[2020-01-04] VITALS: BP 160/75
[2020-01-04 04:00] VITALS: BP 190/86
[2020-01-04 05:44] LABS: BASOPHILS 0.1 % (0-2); EOSINOPHILS 0.8 % (0-7); HEMATOCRIT 38.8 % (42.0-54.0); HEMOGLOBIN 12.5 g/dL (13.5-17.5); MCH 27.5 pg (26.0-34.0); MCHC 32.2 g/dL (31.0-37.0); MEAN PLATELET VOLUME 8.4 fL (7.4-10.4); NEUTROPHILS 81.1 % (40-80); PLATELET COUNT 219 10x3/uL (130-400); RBC 4.55 10x6/uL (4.20-6.10); RDW 15.3 % (11.5-14.5); WBC 7.4 10x3/uL (4.8-10.8)
[2020-01-04 05:51] LABS: MCV 85.3 fL (80.0-100.0)
[2020-01-04 05:54] LABS: CALC OSMOLALITY 277 mosm/kg (275-300); CALCIUM 8.5 mg/dL (8.5-10.1); CARBON DIOXIDE 30.5 mmol/L (21.0-32.0); CHLORIDE - SERUM 101 mmol/L (98-107); CREATININE - SERUM 0.9 mg/dL (0.6-1.3); POTASSIUM - SERUM 3.9 mmol/L (3.5-5.1); SODIUM 136 mmol/L (136-145); UREA NITROGEN 22 mg/dL (7-18); eGFR NON AFRICAN AMERICAN 88 mL/min (90-120)
[2020-01-04 06:58] LABS: GLUCOSE 156 mg/dL (74-106)
--- NOTE | 2020-01-04 07:15 | NUR ---
RECEIVE SHIFT REPORT. RESTING IN BED WITH TV ON. DENIES ANY NEEDS AT THIS TIME. WILL CONTINUE PLAN OF CARE AND SAFETY PRECAUTIONS.
[2020-01-04 09:02] VITALS: BP 149/76
[2020-01-04 12:06] VITALS: BP 140/53
--- NOTE | 2020-01-04 13:35 | NUR ---
PHYSICAL THERAPY CAME EARLIER TO GET PATIENT OUT OF BED. SITTING IN CHAIR FOR LUNCH. STATES HE NEEDS TO USE THE RESTROOM. I GOT HIM OUT OF THE CHAIR WITH MINIMAL ASSIST, HE USED HIS WALKER TO WALK TO THE BATHROOM FROM CHAIR. HAD A BOWEL MOVEMENT. ORIN CAME IN TO HELP ME GET HIM OFF OF THE TOILET. 2 PERSON ASSIST TO GET HIM OFF OF THE TOILET. HE DID WELL WITH HIS WALKER GETTING BACK TO CHAIR. HE IS NOW SITTING IN THE CHAIR. HE STATED HE WANTED TO RECLINE SO WE RECLINED HIM AND PUT HIS CALL LIGHT IN REACH. CHAIR IN LOCKED POSITION. WILL CONTINUE PLAN OF CARE.
[2020-01-04] MEDS ORDERED: SYMBICORT 16010.2 GM INH (13:46)
[2020-01-04] MEDS ORDERED: FEXOFENADINE HC60 MG PO (13:47)
[2020-01-04] MEDS ORDERED: MUCINEX600 MG PO (13:47)
--- NOTE | 2020-01-04 13:56 | MORECARE ---
CASE MANAGEMENT DISCHARGE SUMMARY PATIENT: DOMINIC PERALTA UNIT: [id number] ADM DATE: 12/24/19 AGE: 69 : 46 SEX: M ROOM/BED: D.2135 AUTHOR: CÉSAR,DOC PHYSICIAN: REFERRING PHYSICIAN: LISSETTE MCCOLLUM MD DATE OF SERVICE: 01/04/20 Discharge Plan Patient Name: DOMINIC PERALTA Facility: [facility]:[place] : 1950 Planned Disposition: Anticipated Discharge Date: Discharge Date: Expected LOS: Initial Reviewer: [email or web address] Initial Review Date: 12/24/2019 Generated: 01/04/20 2:56 pm Comments DCP- Discharge Planning Updated by [email or web address]: Luisa Marshall on 01/04/20 12:[address] Late entry: 09:30 CM received call from Vicky at [facility] requesting clinical update. Faxed records as requested. 10:15 CM received call from Angela at [facility] stating patient's daughter, Renee, had requested CM to send referral to [facility] for SNF. CM informed Angela that I expected patient to discharge to [facility] today. CM told Angela that I would call daughter, Renee, to update her on status of DC to [facility] and see if she still wants me to fax referral to [facility]. CM called and spoke with daughter, Renee, informed her that [facility] are potentially planning to accept patient today. I just faxed updated records to them. Asked Renee if she still wanted me to fax records to [facility] as instructed by Angela. Renee told CM that she never asked for the referral to be sent to [facility], stated it must have been her sister. Renee told CM not to fax referral to [facility], will wait for determination from [facility]. CM called Ariel, son-in-law, with update. Ariel verbalized understanding and satisfaction with discharge planning. 13:20 CM received call from Vicky at [facility] stating they have accepted the patient for admission today. Just need to fax MAR, DC med rec, and DC summary then admissions will get bed assigned and call CM back with info. CM informed Dr. Huston. CM called daughter, Renee, and son-in-law, Ariel about status of discharge. After rehab receives DC Summary and Med rec patient will be assigned a bed number, then rehab will call CM with information for discharge today to [facility]. Ariel verbalized understanding and satisfaction with discharge planning. CM had to leave voice message on Renee's phone. DCP- Discharge Planning Updated by [id number]: Luisa Iqbal on 01/03/20 1:[address] CM spoke with Dr Huston about pt family requests for additional covid test. Dr. Huston stated he can not authorize additional covid testing. CM faxed completed PASR to [employer]. Luisa Iqbal DCP- Discharge Planning Updated by [id number]: Luisa Iqbal on 01/03/20 11:[address] CM received call from Dalia at [facility]. Dalia states since pt is Covid positive the facility will require 2 negative covid tests prior to e admitted. Cm called Whitney to update status. Whitney stated to prepare a PASR for [facility], and sent updated medication list. Luisa Iqbal DCP- Discharge Planning Updated by [id number]: Luisa Iqbal on 01/03/20 10:[address] Late Entry 1030 CM received call from Whitney in stating the patient family requests referral to [facility] rehab. CM called Vicky at [phone] and faxed referral. CM will wait for determination. Luisa HO,RN DCP- Discharge Planning Updated by [id number]: Luisa Iqbal on 01/03/20 9:[address] CM received call from Whitney in . Whitney stated she is on the phone with the pts son in law who is requesting dc disposition. Provided updates. Luisa Iqbal DCP- Discharge Planning Updated by [email or web address]: Luisa Iqbal on 01/03/20 9:[address] CM called [facility] rehab at [phone] and left a message with Vicky about referral Cm faxed clinical to [phone] and will await return call. Luisa Iqbal MSN,RN,CM DCP- Discharge Planning Updated by [email or web address]: Luisa Iqbal on 01/03/20 8:[address] CM attempted to call [facility] at [phone] for referral. CM unable to reach at this time. Will continue to reach out per request. Luisa Iqbal DCP- Discharge Planning Updated by [id number]: Luisa Iqbal on 01/03/20 8:[address] Received call from Luisa Marshall stating she received a call from pt daughter Sarah requesting a referral to IP rehab at [facility], and the patient be retested for covid. CM spoke with Arvin FISH about the covi test. CM faxed referral per request to [facility]. Luisa Iqbal MSN,RN,CM DCP- Discharge Planning Updated by [id number]: Luisa Marshall on 12/30/19 4:[address] Late entry: 1310 CM received call from Sarah Chavez with [facility] stating she had received a call from patient's daughter about some concerns she had. CM gave report to Sarah about patient's status per today's pulmonology progress note and family medicine progress note. CM answered Sarah's questions about status of discharge planning. Explained that [facility] and [facility] have both declined patient, need to know from family what other SNF they would allow CM to refer to. 15:34 CM received second call from Sarah Chavez with [facility] stating she had spoken with the family again and they told her that they weren't going to tell CM where to send the referral to, "that's their job". Sarah instructed CM to send SNF referral anywhere. 16:[address] Day who informed CM that he spoke with daughter, Jessica, who stated she spoke with someone at [facility] and she wants CM to send referral there. Stated they were going to accept patient with anticipated DC Thursday. CM called [facility]. Spoke with Cassie about referral. Faxed records as requested. Awaiting determination. DCP- Discharge Planning Updated by [id number]: Luisa Iqbal on 12/30/19 3:[address] CM RECIEVED CALL FROM ARIEL ALFARO. DOMINIC STATED CM, DR, NURSING, AND ADMINITISTRATION HAS DONE NOTHING FOR HIS FATHER. STATED HE HAD TO YELL AND SCREAM TO GET HIS MOTHER TRANSFERED, AND HE IS NOT AFRAID OF COMMING TO THE HOSPITAL TO GET HIS FATHER TRANSFERED WELL. CM STATED HOW [facility] WAS NOTIFIED THIS AM, AND WHAT WAS DONE TO GET PT TRANSFERED. TODAY. DOMINIC SALGADOW TO YELL AT STATING HE DOES NOT UNDERSTAND HOW CM CAN DO NOTHING FOR HIS FATHER. STATES HE HAS A DR WHO HAS ACCEPTED HIM, BUT THE HOSPITAL WILL NOT TRANSFER HIM. CM STATES SHE WILL CONTINUE TO REACH OUT TO [facility] AND SOON THEY PROVIDE ACCEPTANCE AND AN AVALABLE BED HE WILL BE TRANSFERED REQUESTED. STATES THAT HE HAS NOT HAD A CONFERSATION WITH A DOCTOR IN 4 DAYS. AND WILL GO TO ADMINISTRATION IF HE HAS TOO. STATED THAT THE DR IS ROUNDING ON EVERY PATIENT AND CM WILL PROVIDE THE DR WITH HIS NUMBER. CM ATTEMPT TO PROVIDE REASSURANCE. CM PROVIDED DR DAY [facility] WHO STATES HE WILL SPEAK WITH THE FAMILY. LUISA IQBAL MSN,RN,CM DCP- Discharge Planning Updated by [id number]: Luisa Iqbal on 12/30/19 3:[address] Patient Name: DOMINIC PERALTA Admission Status: ER Accout number: [id number] Admission Date: 12-24-2019 : 1950 Admission Diagnosis:COVID-19 Attending: LISSETTE MCCOLLUM Current LOS: 6 Anticipated DC Date: Planned Disposition: Primary Insurance: MEDICARE A & B Discharge Planning Comments: Spoke with Luisa El CM who states she spoke with the family and they have provided authorization to send referrals to any facility that will accept pt with COVID. EMIL sent referrals to clinical liasons Regina for [facility], and Kimberly for [facility], and Caroline for [facility]. EMIL will continue to assist in dc planning/needs. Inventory Technician: Luisa Iqbal DCP- Discharge Planning Updated by [id number]: Luisa Iqbal on 12/30/19 11:[address] Patient Name: DOMINIC PERALTA Admission Status: ER Accout number: [id number] Admission Date: 12-24-2019 : 1950 Admission Diagnosis:COVID-19 Attending: LISSETTE MCCOLLUM Current LOS: 6 Anticipated DC Date: Planned Disposition: Primary Insurance: MEDICARE A & B Discharge Planning Comments: EMIL spoke with Regina from [facility] who states they are not able to accept the patient into that facility. States there is a facility in [place] who is accepting Covid positive patients at this time. CM will have Luisa CRAWFORD MGR to relay that that information to the family. Luisa Iqbal Inventory Technician: Luisa Iqbal DCP- Discharge Planning Updated by [email or web address]: Luisa Iqbal on 12/30/19 8:[address] Late Entry assessment competed at 1530 12/29/19 CM received a call from Hui at the access team at [facility] with a determination that they are unable to accept the patient because it is a lateral transfer. Hui states she has received several calls about the transfer and [facility] is unable to accept the patient, and the facility would prefer not to receive any more calls regarding this patient unless his condition deteriorates. Emil spoke with Dr. Day regarding the determination. Dr. Day stated he would call the family and update. Luisa Iqbal DCP- Discharge Planning Updated by [id number]: Luisa Iqbal on 12/29/19 1:[address] CM CALLED HUI AT [facility] AT [phone] ABOUT PENDING TRANSFER. SHE STATED THAT SHE HAS NOT RECIEVED THE FAX. CONFIRMED FAX NUMBER OF [phone]. SHE STATES SHE IS NOT ABLE TO RECIEVE ELECTRONIC FAXES AT THIS TIME. EMIL REFAXED FACE SHEET TO [phone]. CM MANUALLY FAXED CLINICALS. PROVIDED CM DIRECT LINE, AND THE NURSES STATION NUMBER IF A BED OPEN UP. LUISA IQBAL DCP- Discharge Planning Updated by [id number]: Luisa Iqbal on 12/29/19 7:[address] Patient Name: DOMINIC PERALTA Encounter No: [id number] : 1950 Primary Insurance: MEDICARE A & B Anticipated DC Date: Planned Disposition: External Planned Provider: : DCP follow-up note: EMIL was asked to called Pt daughter Jessica at [phone]. Cm called Jessica who was very upset. Jessica began yelling as soon as EMIL initiated conversation. Jessica states that her father is not being cared for. States since this hospital is not able to provide PT she fears her father will decline at a rapid rate. She demands that CM call [facility] and get him transferred to a higher level of care. CM called refrigeration houseman for update then called [facility] transfer team at [phone] and spoke to Keely CRAFT. CM provided clinical representation, and Keely states she will call CM for bed availability. CM will call pt family for updates as they arise. Case management will follow and assist as needed. Luisa Iqbal DCP- Discharge Planning Updated by [id number]: Arile Strange on 12/28/19 3:[address] Patient Name: DOMINIC PERALTA Encounter No: [id number] : 1950 Primary Insurance: MEDICARE A & B Anticipated DC Date: Planned Disposition: External Planned Provider: : DCP follow-up note: TC to Regina. Regina states that she received fax and will contact us with placement if possible. Will continue to follow Ariel Strange DCP- Discharge Planning Updated by [email or web address]: Ariel Strange on 12/28/19 1:[address] Patient Name: DOMINIC PERALTA Encounter No: [id number] : 1950 Primary Insurance: MEDICARE A & B Anticipated DC Date: Planned Disposition: External Planned Provider: : DCP follow-up note: Spoke with Regina Perry who coordinates with [place]. Regina states that the patient should be able to transfer to [facility] and has reviewed previous clinicals sent. Will traditionally fax latest progress notes and medication list per request via. Will continue to follow. Ariel Strange DCP- Discharge Planning Updated by [id number]: Luisa Iqbal on 12/27/19 5:[address] Cm spoke with Regina from [facility] who states they are looking at the clinicals. They will get back with CM with determination. Luisa Iqbal DCP- Discharge Planning Updated by [id number]: Luisa Iqbal on 12/26/19 7:[address] Patient Name: DOMINIC PERALTA Admission Status: ER Accout number: [id number] Admission Date: 12-24-2019 : 1950 Admission Diagnosis:COVID-19 Attending: LISSETTE MCCOLLUM Current LOS: 2 Anticipated DC Date: Planned Disposition: Primary Insurance: MEDICARE A & B Discharge Planning Comments: CM called pt dtr Renee at [phone] about dc planning. CM educated patient on the CM role and verbal consent given by patient to complete assessment. CM verified patient's address, phone number, and emergency contact phone numbers. Patient lives at home with his in a basement apartment at their sons house. Renee voiced concerns over her father's Parkinson's disease and the increased weakness he has. States her and her siblings may not be able to care for him upon dc. Renee mad a 3 way call with CM and her siblings so that each family member can speak about concerns. CM spoke to family about SNF, HH, PT, and private CG. Each states that their parents do not have enough money to afford private duty care. And they all need to work and are unable to provide 24 hour care. CM provided details of finding a SNF with [facility]. They stated they will think about a SNF and return a call to . Later this afternoon CM received a call from Renee stating the family is in agreement for SNF. Renee stated she called [facility] who will look at the clinical information. CM faxed clinicals to [facility] as requested. CM will continue to follow and will assist as needed with dc plans/needs. Inventory Technician: Luisa Iqbal DCP- Discharge Planning Updated by [id number]: Luisa Iqbal on 12/26/19 7:[address] LATE ENTRY. CONVERSATION OCCURED 12/25/19 CM RECIEVED A CALL FROM PT DAUGHTER RENEE ([phone]) WHO DEMANDS HER MOTHER AND FATHER BE SENT TO [facility] FOR A HIGHER LEVEL OF CARE. SHE STATES THEY ARE A [facility] AND THEY HAVE ACCESS TO [facility] IF HER FAMILY REQUIRES IT. CM EDUCATED RENEE ON WHAT CONSTITUTES A HIGHER LEVEL OF CARE. SHE STATES SHE HAS DR AGARWAL WHO WILL ACCEPT HER AND WANTS THE AMBULANCE RIDE COVERED BY INSURANCE SINCE IT IS A HIGHER LEVEL OF CARE. CM REINFORCED THAT IT IS A LATERAL TRANSFER. THE SERVICES PROVIDED TO HER PARENTS ARE THE SAME IT WOULD BE AT [facility], AND INSURANCE WILL NOT PAY FOR TRANSPORT. 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 SHE STATES SHE IS THEIR ONLY ADVOCATE IS TERRIFIED FOR THEIR LIVES. CM PROVIDED INSTRUCTION TO WHAT [facility] IS DOING CLINICALLY FOR HER FAMILY. CM ALLOWED RENEE TO VENT HER CONCERNS, WHILE PROVIDING EMOTIONAL SUPPORT. RENEE VOICED UNDERSTANDING AND WAS THANKFUL FOR THE INFORMATION PROVIDED. SHE REQUESTS THAT THE DR CALL HER FOR UPDATES. CM SPOKE WITH THE NURSE PROVIDING CARE FOR THE PATIENT AND RELAYED THE REQUEST. THE NURSES STATES THAT DR MEJIA WILL CALL AFTER HE ROUNDS ON THE PATIENT TODAY. CM TO CONTINUE ASSISTING NEEDED WITH DC PLANS/NEEDS LUISA IQBAL Coverage Notice Reviewer: [id number] Rajinder Iqbal Notice Issued Date-Time: 12/26/2019 9:00 Notice Type: Patient Choice Letter Notice Delivered To: Family Member Relationship to Patient: Daughter Centrifuge Operator Name: Renee Delivery Method: PHONE - Phone Jana Days: Prior Verbal Notification: Yes Recipient Understood Notice: Yes Recipient Signature: Med Rec Note Co-signed by Attending: Coverage Notice Comment: [facility] Reviewer: [id number] Rajinder Iqbal Notice Issued Date-Time: 12/30/2019 16:03 Notice Type: Patient Choice Letter Notice Delivered To: Family Member Relationship to Patient: Son in Law Centrifuge Operator Name: Ariel Delivery Method: PHONE - Phone Jana Days: Prior Verbal Notification: Yes Recipient Understood Notice: Yes Recipient Signature: Med Rec Note Co-signed by Attending: Coverage Notice Comment: any SNF. states it is CM job to find a facility that accepts covid. Reviewer: [id number] - Luisa Marshall Notice Issued Date-Time: 12/30/2019 16:10 Notice Type: Patient Choice Letter Notice Delivered To: Other Relationship to Patient: Daughter Centrifuge Operator Name: Jessica Delivery Method: MAIL - Mail Jana Days: Prior Verbal Notification: Recipient Understood Notice: Recipient Signature: Med Rec Note Co-signed by Attending: Coverage Notice Comment: "Anywhere" SNF [facility] SN[facility] Reviewer: [id number] - Luisa Iqbal Notice Issued Date-Time: 01/03/2020 9:00 Notice Type: Patient Choice Letter Notice Delivered To: Family Member Relationship to Patient: Daughter Centrifuge Operator Name: Renee Delivery Method: PHONE - Phone Jana Days: Prior Verbal Notification: Yes Recipient Understood Notice: Yes Recipient Signature: Med Rec Note Co-signed by Attending: Coverage Notice Comment: IP rehab at [place] Reviewer: [id number] Rajinder Iqbal Notice Issued Date-Time: 01/03/2020 10:30 Notice Type: Patient Choice Letter Notice Delivered To: Family Member Relationship to Patient: Centrifuge Operator Name: Delivery Method: PHONE - Phone Jana Days: Prior Verbal Notification: Yes Recipient Understood Notice: Yes Recipient Signature: Med Rec Note Co-signed by Attending: Coverage Notice Comment: received call from Whitney to send referral to [facility] rehab Last DP export: 01/03/20 1:29 p Patient Name: DOMINIC PERALTA Page [id number] at 1356 All edits/amendments must be made on the electronic document DICTATION DATE: 01/04/20 1356 PLASMA CENTER TECHNICIAN: RODNEY 01/04/20 1356 RPT#: [id number] DC DATE: STATUS: ADM IN [facility] [address] [place] [address] END OF REPORT
--- NOTE | 2020-01-04 14:25 | MORECARE ---
CASE MANAGEMENT DISCHARGE SUMMARY PATIENT: DOMINIC PERALTA UNIT: [id number] ADM DATE: 12/24/19 AGE: 69 : 46 SEX: M ROOM/BED: D.2139 AUTHOR: CÉSAR,DOC PHYSICIAN: REFERRING PHYSICIAN: LISSETTE MCCOLLUM MD DATE OF SERVICE: 01/04/20 Discharge Plan Patient Name: DOMINIC PERALTA Facility: [facility]:[place] : 1950 Planned Disposition: Anticipated Discharge Date: Discharge Date: Expected LOS: Initial Reviewer: [id number] Initial Review Date: 12/24/2019 Generated: 01/04/20 3:24 pm Comments DCP- Discharge Planning Updated by [id number]: Luisa Marshall on 01/04/20 1:[address] CM faxed DC med list, MAR, [facility]. Awaiting call from [facility] admissions office with bed number. DCP- Discharge Planning Updated by [id number]: Luisa Marshall on 01/04/20 12:[address] Late entry: 09:30 CM received call from [facility] at [facility] requesting clinical update. Faxed records as requested. 10:15 CM received call from Angela at [facility] stating patient's daughter, Renee, had requested CM to send referral to [facility] for SNF. CM informed Angela that I expected patient to discharge to [facility] today. CM told Angela that I would call daughter, Renee, to update her on status of DC to [facility] and see if she still wants me to fax referral to [facility]. CM called and spoke with daughter, Renee, informed her that [facility] are potentially planning to accept patient today. I just faxed updated records to them. Asked Renee if she still wanted me to fax records to [facility] as instructed by Angela. Renee told CM that she never asked for the referral to be sent to [facility], stated it must have been her sister. Renee told CM not to fax referral to [facility], will wait for determination from [facility]. CM called Ariel, son-in-law, with update. Ariel verbalized understanding and satisfaction with discharge planning. 13:20 CM received call from Vicky at [facility] stating they have accepted the patient for admission today. Just need to fax MAR, DC med rec, and DC summary then admissions will get bed assigned and call CM back with info. CM informed Dr. Huston. CM called daughter, Renee, and son-in-law, Ariel about status of discharge. After rehab receives DC Summary and Med rec patient will be assigned a bed number, then rehab will call CM with information for discharge today to [facility]. Ariel verbalized understanding and satisfaction with discharge planning. CM had to leave voice message on Renee's phone. DCP- Discharge Planning Updated by [id number]: Luisa Iqbal on 01/03/20 1:[address] CM spoke with Dr Huston about pt family requests for additional covid test. Dr. Huston stated he can not authorize additional covid testing. CM faxed completed PASR to [facility]. Luisa Iqbal DCP- Discharge Planning Updated by [id number]: Luisa Iqbal on 01/03/20 11:[address] CM received call from Dalia at [facility] rehab. Dalia states since pt is Covid positive the facility will require 2 negative covid tests prior to e admitted. Cm called [facility] to update status. Whitney stated to prepare a PASR for [facility], and sent updated medication list. Luisa Iqbal DCP- Discharge Planning Updated by [id number]: Luisa Iqbal on 01/03/20 10:[address] Late Entry 1030 CM received call from Whitney in stating the patient family requests referral to [facility] rehab. CM called [facility] at [phone] and faxed referral. CM will wait for determination. Luisa Iqbal MSN,RN DCP- Discharge Planning Updated by [id number]: Luisa Iqbal on 01/03/20 9:[address] CM received call from Whitney in . Whitney stated she is on the phone with the pts son in law who is requesting dc disposition. Provided updates. Luisa Iqbal DCP- Discharge Planning Updated by [id number]: Luisa Iqbal on 01/03/20 9:[address] CM called [facility] rehab at [phone] and left a message with [facility] about referral Cm faxed clinical to [phone] and will await return call. Luisa Iqbal MSN,RN,CM DCP- Discharge Planning Updated by [id number]: Luisa Iqbal on 01/03/20 8:[address] CM attempted to call [facility]hab at [phone] for referral. CM unable to reach at this time. Will continue to reach out per request. Luisa Iqbal DCP- Discharge Planning Updated by [id number]: Luisa Iqbal on 01/03/20 8:[address] Received call from Luisa Marshall stating she received a call from pt daughter Sarah requesting a referral to IP rehab at [facility], and the patient be retested for covid. CM spoke with Arvin FISH about the covi test. CM faxed referral per request to [facility]hab. Luisa HO,RN,CM DCP- Discharge Planning Updated by [id number]: Luisa Marshall on 12/30/19 4:[address] Late entry: 1310 CM received call from Sarah Chavez with [facility] stating she had received a call from patient's daughter about some concerns she had. CM gave report to Sarah about patient's status per today's pulmonology progress note and family medicine progress note. CM answered Sarah's questions about status of discharge planning. Explained that [facility] and [facility] have both declined patient, need to know from family what other SNF they would allow CM to refer to. 15:34 CM received second call from Sarah Chavez with [facility] stating she had spoken with the family again and they told her that they weren't going to tell CM where to send the referral to, "that's their job". Sarah instructed CM to send SNF referral anywhere. 16:[address] Day who informed CM that he spoke with daughter, Jessica, who stated she spoke with someone at [facility] and she wants CM to send referral there. Stated they were going to accept patient with anticipated DC Thursday. CM called [facility]. Spoke with Cassie about referral. Faxed records as requested. Awaiting determination. DCP- Discharge Planning Updated by [id number]: Luisa Iqbal on 12/30/19 3:[address] CM RECIEVED CALL FROM ARIEL DOMNIIC. DOMINIC STATED CM, DR, NURSING, AND ADMINITISTRATION HAS DONE NOTHING FOR HIS FATHER. STATED HE HAD TO YELL AND SCREAM TO GET HIS MOTHER TRANSFERED, AND HE IS NOT AFRAID OF COMMING TO THE HOSPITAL TO GET HIS FATHER TRANSFERED WELL. EMIL STATED HOW [facility] WAS NOTIFIED THIS AM, AND WHAT WAS DONE TO GET PT TRANSFERED. TODAY. DOMINIC CONTINUEW TO YELL AT STATING HE DOES NOT UNDERSTAND HOW CM CAN DO NOTHING FOR HIS FATHER. STATES HE HAS A DR WHO HAS ACCEPTED HIM, BUT THE HOSPITAL WILL NOT TRANSFER HIM. CM STATES SHE WILL CONTINUE TO REACH OUT TO [facility] AND SOON THEY PROVIDE ACCEPTANCE AND AN AVALABLE BED HE WILL BE TRANSFERED REQUESTED. STATES THAT HE HAS NOT HAD A CONFERSATION WITH A DOCTOR IN 4 DAYS. AND WILL GO TO ADMINISTRATION IF HE HAS TOO. STATED THAT THE DR IS ROUNDING ON EVERY PATIENT AND CM WILL PROVIDE THE DR WITH HIS NUMBER. CM ATTEMPT TO PROVIDE REASSURANCE. EMIL PROVIDED DR DAY WITH A PHONE NUMBER TO REACH ArielFOR UPDATE. WHO STATES HE WILL SPEAK WITH THE FAMILY. LUISA IQBAL MSN,RN,CM DCP- Discharge Planning Updated by [id number]: Luisa Iqbal on 12/30/19 3:[address] Patient Name: DOMINIC PERALTA Admission Status: ER Accout number: [id number] Admission Date: 12-24-2019 : 1950 Admission Diagnosis:COVID-19 Attending: LISSETTE MCCOLLUM Current LOS: 6 Anticipated DC Date: Planned Disposition: Primary Insurance: MEDICARE A & B Discharge Planning Comments: Spoke with Luisa El CM who states she spoke with the family and they have provided authorization to send referrals to any facility that will accept pt with COVID. EMIL sent referrals to clinical liasons Regina for [facility] re[facility], and Kimberly for [facility], and Caroline for [facility]. EMIL will continue to assist in dc planning/needs. Recycling Crew Supervisor: Luisa Iqbal DCP- Discharge Planning Updated by [id number]: Luisa Iqbal on 12/30/19 11:[address] Patient Name: DOMINIC PERALTA Admission Status: ER Accout number: [id number] Admission Date: 12-24-2019 : 1950 Admission Diagnosis:COVID-19 Attending: LISSETTE MCCOLLUM Current LOS: 6 Anticipated DC Date: Planned Disposition: Primary Insurance: MEDICARE A & B Discharge Planning Comments: EMIL spoke with Regina from [facility] who states they are not able to accept the patient into that facility. States there is a facility in [place] who is accepting Covid positive patients at this time. CM will have Luisa CRAWFORD MGR to relay that that information to the family. Luisa Iqbal Recycling Crew Supervisor: Luisa Iqbal DCP- Discharge Planning Updated by [id number]: Luisa Iqbal on 12/30/19 8:[address] Late Entry assessment competed at 1530 12/29/19 CM received a call from Hui at the access team at [facility] with a determination that they are unable to accept the patient because it is a lateral transfer. Hui states she has received several calls about the transfer and [facility] is unable to accept the patient, and the facility would prefer not to receive any more calls regarding this patient unless his condition deteriorates. Emil spoke with Dr. Day regarding the determination. Dr. Day stated he would call the family and update. Luisa Iqbal DCP- Discharge Planning Updated by [id number]: Luisa Iqbal on 12/29/19 1:[address] CM CALLED HUI AT [facility] AT [phone] ABOUT PENDING TRANSFER. SHE STATED THAT SHE HAS NOT RECIEVED THE FAX. CONFIRMED FAX NUMBER OF [phone]. SHE STATES SHE IS NOT ABLE TO RECIEVE ELECTRONIC FAXES AT THIS TIME. EMIL REFAXED FACE SHEET TO [phone]. CM MANUALLY FAXED CLINICALS. PROVIDED CM DIRECT LINE, AND THE NURSES STATION NUMBER IF A BED OPEN UP. LUISA IQBAL DCP- Discharge Planning Updated by [email or web address]: Luisa Iqbal on 12/29/19 7:[address] Patient Name: DOMINIC PERALTA Encounter No: [id number] : 1950 Primary Insurance: MEDICARE A & B Anticipated DC Date: Planned Disposition: External Planned Provider: : DCP follow-up note: EMIL was asked to called Pt daughter Jessica at [phone]. Cm called Jessica who was very upset. Jessica began yelling as soon as CM initiated conversation. Jessica states that her father is not being cared for. States since this hospital is not able to provide PT she fears her father will decline at a rapid rate. She demands that CM call [facility] and get him transferred to a higher level of care. CM called prefabricated houses trimmer for update then called [facility] transfer team at [phone] and spoke to Keely CRAFT. CM provided clinical representation, and Keely states she will call CM for bed availability. CM will call pt family for updates as they arise. Case management will follow and assist as needed. Luisa Iqbal DCP- Discharge Planning Updated by [id number]: Ariel Strange on 12/28/19 3:[address] Patient Name: DOMINIC PERALTA Encounter No: [id number] : 1950 Primary Insurance: MEDICARE A & B Anticipated DC Date: Planned Disposition: External Planned Provider: : DCP follow-up note: TC to Regina. Regina states that she received fax and will contact us with placement if possible. Will continue to follow Ariel Strange DCP- Discharge Planning Updated by [id number]: Ariel Strange on 12/28/19 1:[address] Patient Name: DOMINIC PERALTA Encounter No: [id number] : 1950 Primary Insurance: MEDICARE A & B Anticipated DC Date: Planned Disposition: External Planned Provider: : DCP follow-up note: Spoke with Regina Perry who coordinates with ARIEL. Regina states that the patient should be able to transfer to [facility] and has reviewed previous clinicals sent. Will traditionally fax latest progress notes and medication list per request via. Will continue to follow. Ariel Strange DCP- Discharge Planning Updated by [id number]: Luisa Iqbal on 12/27/19 5:[address] Cm spoke with Regina from [facility] who states they are looking at the clinicals. They will get back with CM with determination. Luisa Iqbal DCP- Discharge Planning Updated by [id number]: Luisa Iqbal on 12/26/19 7:[address] Patient Name: DOMINIC PERALTA Admission Status: ER Accout number: [id number] Admission Date: 12-24-2019 : 1950 Admission Diagnosis:COVID-19 Attending: LISSETTE MCCOLLUM Current LOS: 2 Anticipated DC Date: Planned Disposition: Primary Insurance: MEDICARE A & B Discharge Planning Comments: CM called pt dtr Renee at [phone] about dc planning. CM educated patient on the CM role and verbal consent given by patient to complete assessment. CM verified patient's address, phone number, and emergency contact phone numbers. Patient lives at home with his in a basement apartment at their sons house. Renee voiced concerns over her father's Parkinson's disease and the increased weakness he has. States her and her siblings may not be able to care for him upon dc. Renee mad a 3 way call with CM and her siblings so that each family member can speak about concerns. CM spoke to family about SNF, HH, PT, and private CG. Each states that their parents do not have enough money to afford private duty care. And they all need to work and are unable to provide 24 hour care. CM provided details of finding a SNF with [facility]. They stated they will think about a SNF and return a call to . Later this afternoon CM received a call from Renee stating the family is in agreement for SNF. Renee stated she called [facility] who will look at the clinical information. CM faxed clinicals to [facility] as requested. CM will continue to follow and will assist as needed with dc plans/needs. Recycling Crew Supervisor: Luisa Iqbal DCP- Discharge Planning Updated by [id number]: Luisa Iqbal on 12/26/19 7:[address] LATE ENTRY. CONVERSATION OCCURED 12/25/19 CM RECIEVED A CALL FROM PT DAUGHTER RENEE ([phone]) WHO DEMANDS HER MOTHER AND FATHER BE SENT TO [facility] FOR A HIGHER LEVEL OF CARE. SHE STATES THEY ARE A [facility]EL [facility] AND THEY HAVE ACCESS TO [facility] IF HER FAMILY REQUIRES IT. CM EDUCATED RENEE ON WHAT CONSTITUTES A HIGHER LEVEL OF CARE. SHE STATES SHE HAS DR AGARWAL WHO WILL ACCEPT HER AND WANTS THE AMBULANCE RIDE COVERED BY INSURANCE SINCE IT IS A HIGHER LEVEL OF CARE. CM REINFORCED THAT IT IS A LATERAL TRANSFER. THE SERVICES PROVIDED TO HER PARENTS ARE THE SAME IT WOULD BE AT [facility], AND INSURANCE WILL NOT PAY FOR TRANSPORT. 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 SHE STATES SHE IS THEIR ONLY ADVOCATE IS TERRIFIED FOR THEIR LIVES. CM PROVIDED INSTRUCTION TO WHAT [facility] IS DOING CLINICALLY FOR HER FAMILY. CM ALLOWED RENEE TO VENT HER CONCERNS, WHILE PROVIDING EMOTIONAL SUPPORT. RENEE VOICED UNDERSTANDING AND WAS THANKFUL FOR THE INFORMATION PROVIDED. SHE REQUESTS THAT THE DR CALL HER FOR UPDATES. CM SPOKE WITH THE NURSE PROVIDING CARE FOR THE PATIENT AND RELAYED THE REQUEST. THE NURSES STATES THAT DR MEJIA WILL CALL AFTER HE ROUNDS ON THE PATIENT TODAY. CM TO CONTINUE ASSISTING NEEDED WITH DC PLANS/NEEDS LUISA IQBAL Coverage Notice Reviewer: [id number] - Luisa Iqbal Notice Issued Date-Time: 12/30/2019 16:03 Notice Type: Patient Choice Letter Notice Delivered To: Family Member Relationship to Patient: Son in Law Casing Tester Name: Ariel Delivery Method: PHONE - Phone Jana Days: Prior Verbal Notification: Yes Recipient Understood Notice: Yes Recipient Signature: Med Rec Note Co-signed by Attending: Coverage Notice Comment: any SNF. states it is CM job to find a facility that accepts covid. Reviewer: [id number] - Luisa Iqbal Notice Issued Date-Time: 12/26/2019 9:00 Notice Type: Patient Choice Letter Notice Delivered To: Family Member Relationship to Patient: Daughter Casing Tester Name: Renee Delivery Method: PHONE - Phone Jana Days: Prior Verbal Notification: Yes Recipient Understood Notice: Yes Recipient Signature: Med Rec Note Co-signed by Attending: Coverage Notice Comment: [facility] Reviewer: [id number] - Luisa Iqbal Notice Issued Date-Time: 01/03/2020 9:00 Notice Type: Patient Choice Letter Notice Delivered To: Family Member Relationship to Patient: Daughter Casing Tester Name: Renee Delivery Method: PHONE - Phone Jana Days: Prior Verbal Notification: Yes Recipient Understood Notice: Yes Recipient Signature: Med Rec Note Co-signed by Attending: Coverage Notice Comment: [facility] rehab at [facility] Reviewer: [id number] - Luisa Iqbal Notice Issued Date-Time: 01/03/2020 10:30 Notice Type: Patient Choice Letter Notice Delivered To: Family Member Relationship to Patient: Casing Tester Name: Delivery Method: PHONE - Phone Jana Days: Prior Verbal Notification: Yes Recipient Understood Notice: Yes Recipient Signature: Med Rec Note Co-signed by Attending: Coverage Notice Comment: received call from Whitney to send referral to [facility] rehab Reviewer: [id number] - Luisa Marshall Notice Issued Date-Time: 12/30/2019 16:10 Notice Type: Patient Choice Letter Notice Delivered To: Other Relationship to Patient: Daughter Casing Tester Name: Jessica Delivery Method: MAIL - Mail Jana Days: Prior Verbal Notification: Recipient Understood Notice: Recipient Signature: Med Rec Note Co-signed by Attending: Coverage Notice Comment: "Anywhere" SNF [facility] Last DP export: 01/04/20 12:56 p Patient Name: DOMINIC PERALTA Page [id number] at 1425 All edits/amendments must be made on the electronic document DICTATION DATE: 01/04/20 1424 COMPACTOR DRIVER: RODNEY 01/04/20 1424 RPT#: [id number] DC DATE: STATUS: ADM IN [facility] [address] [place] [address] END OF REPORT
--- NOTE | 2020-01-04 15:49 | NUR ---
REPORT CALLED TO [facility]. DISCHARGE INSTRUCTIONS GIVEN VERBALLY. D/C LEFT FOREARM IV, TIP INTACT. AWAITING [facility]ENET ARRIVAL TO TRANSPORT PATIENT.
--- NOTE | 2020-01-04 17:00 | NUR ---
AMBULANCE ARRIVED TO TRANSPORT PATIENT TO [facility] VIA STRETCHER. PATIENT WALKED WITH WALKER TO STRETCHER. REMAINS FREE FROM INJURY. [facility] CASE MANAGEMENT NOTIFIED OF DEPARTURE. HOME MEDICATIONS SENT WITH PATIENT.
--- NOTE | 2020-01-04 17:06 | MORECARE ---
CASE MANAGEMENT DISCHARGE SUMMARY PATIENT: DOMINIC PERALTA UNIT: [id number] ADM DATE: 12/24/19 AGE: 69 : 46 SEX: M ROOM/BED: D.2139 AUTHOR: CÉSAR,DOC PHYSICIAN: REFERRING PHYSICIAN: LISSETTE MCCOLLUM MD DATE OF SERVICE: 01/04/20 Discharge Plan Patient Name: DOMINIC PERALTA Facility: [facility]:[place] : 1950 Planned Disposition: Anticipated Discharge Date: Discharge Date: Expected LOS: Initial Reviewer: [email or web address] Initial Review Date: 12/24/2019 Generated: 01/04/20 6:05 pm Comments DCP- Discharge Planning Updated by [email or web address]: Luisa Marshall on 01/04/20 4:[address] Late entry: 14:50 CM received call from Vicky at [facility]. States they have accepted patient. He will go to room 317. Nurse to call report to [phone]. [facility] has called ambulance for transport. CM informed nurse Lopez of room number, and number to call report to. CM called daughter, Renee, and son-in-law, Ariel with updated status of discharge to [facility]. Ariel asked CM to have patient or nurse check his home medications to see if he was about to run out of any. Both verbalized satisfaction with discharge planning. EMIL informed nurse Lopez of request to check home meds and let family know if patient was about to run out of any. Jessica verbalized understanding. DCP- Discharge Planning Updated by [id number]: Luisa Marshall on 01/04/20 1:[address] CM faxed DC med list, MAR, and DC Summary to [facility] as requested. Awaiting call from [facility] admissions office with bed number. DCP- Discharge Planning Updated by [id number]: Luisa Marshall on 01/04/20 12:[address] Late entry: 09:30 CM received call from Vicky at [facility] requesting clinical update. Faxed records as requested. 10:15 CM received call from Angela at [facility] stating patient's daughter, Renee, had requested CM to send referral to [facility] for SNF. CM informed Angela that I expected patient to discharge to [facility] today. CM told Angela that I would call daughter, Renee, to update her on status of DC to [facility] and see if she still wants me to fax referral to [facility]. CM called and spoke with daughter, Renee, informed her that [facility] are potentially planning to accept patient today. I just faxed updated records to them. Asked Renee if she still wanted me to fax records to [facility] as instructed by Angela. Renee told CM that she never asked for the referral to be sent to [facility], stated it must have been her sister. Renee told CM not to fax referral to [facility], will wait for determination from [facility]. CM called Ariel, son-in-law, with update. Ariel verbalized understanding and satisfaction with discharge planning. 13:20 CM received call from Vicky at [facility] stating they have accepted the patient for admission today. Just need to fax MAR, DC med rec, and DC summary then admissions will get bed assigned and call CM back with info. CM informed Dr. Huston. CM called daughter, Renee, and son-in-law, Ariel about status of discharge. After rehab receives DC Summary and Med rec patient will be assigned a bed number, then rehab will call CM with information for discharge today to [facility]. Ariel verbalized understanding and satisfaction with discharge planning. CM had to leave voice message on Renee's phone. DCP- Discharge Planning Updated by [id number]: Luisa Iqbal on 01/03/20 1:[address] CM spoke with Dr Huston about pt family requests for additional covid test. Dr. Huston stated he can not authorize additional covid testing. CM faxed completed PASR to [facility]. Luisa Iqbal DCP- Discharge Planning Updated by [email or web address]: Luisa Iqbal on 01/03/20 11:[address] CM received call from Dalia at [facility]. Dalia states since pt is Covid positive the facility will require 2 negative covid tests prior to e admitted. Cm called Whitney to update status. Whitney stated to prepare a PASR for [facility], and sent updated medication list. Luisa Iqbal DCP- Discharge Planning Updated by [id number]: Luisa Iqbal on 01/03/20 10:[address] Late Entry 1030 CM received call from Whitney in stating the patient family requests referral to [facility] rehab. CM called Vicky at [phone] and faxed referral. CM will wait for determination. Luisa HO,RN DCP- Discharge Planning Updated by [id number]: Luisa Iqbal on 01/03/20 9:[address] CM received call from Whitney in . Whitney stated she is on the phone with the pts son in law who is requesting dc disposition. Provided updates. Luisa Iqbal DCP- Discharge Planning Updated by [id number]: Luisa Iqbal on 01/03/20 9:[address] CM called [facility] at [phone] and left a message with Vicky about referral Cm faxed clinical to [phone] and will await return call. Luisa HO,RN,CM DCP- Discharge Planning Updated by [id number]: Luisa Iqbal on 01/03/20 8:[address] CM attempted to call [facility] at [phone] for referral. CM unable to reach at this time. Will continue to reach out per request. Luisa Iqbal DCP- Discharge Planning Updated by [id number]: Luisa Iqbal on 01/03/20 8:[address] Received call from Luisa Marshall stating she received a call from pt daughter Sarah requesting a referral to IP rehab at [facility], and the patient be retested for covid. CM spoke with Arvin FISH about the covi test. CM faxed referral per request to [facility]. Luisa HO,RN,CM DCP- Discharge Planning Updated by [email or web address]: Luisa Marshall on 12/30/19 4:[address] Late entry: 1310 CM received call from Sarah Chvaez with [facility] stating she had received a call from patient's daughter about some concerns she had. CM gave report to Sarah about patient's status per today's pulmonology progress note and family medicine progress note. CM answered Sarah's questions about status of discharge planning. Explained that [facility] and [facility] have both declined patient, need to know from family what other SNF they would allow CM to refer to. 15:34 CM received second call from Sarah Chavez with [facility] stating she had spoken with the family again and they told her that they weren't going to tell CM where to send the referral to, "that's their job". Sarah instructed CM to send SNF referral anywhere. 16:[address] Day who informed CM that he spoke with daughter, Jessica, who stated she spoke with someone at [facility] and she wants CM to send referral there. Stated they were going to accept patient with anticipated DC Thursday. CM called [facility]. Spoke with Cassie about referral. Faxed records as requested. Awaiting determination. DCP- Discharge Planning Updated by [id number]: Luisa Iqbal on 12/30/19 3:[address] CM RECIEVED CALL FROM ARIEL ALFARO. DOMINIC STATED CM, DR, NURSING, AND ADMINITISTRATION HAS DONE NOTHING FOR HIS FATHER. STATED HE HAD TO YELL AND SCREAM TO GET HIS MOTHER TRANSFERED, AND HE IS NOT AFRAID OF COMMING TO THE HOSPITAL TO GET HIS FATHER TRANSFERED WELL. EMIL STATED HOW [facility] WAS NOTIFIED THIS AM, AND WHAT WAS DONE TO GET PT TRANSFERED. TODAY. DOMINIC CONTINUEW TO YELL AT STATING HE DOES NOT UNDERSTAND HOW CM CAN DO NOTHING FOR HIS FATHER. STATES HE HAS A DR WHO HAS ACCEPTED HIM, BUT THE HOSPITAL WILL NOT TRANSFER HIM. CM STATES SHE WILL CONTINUE TO REACH OUT TO [facility] AND SOON THEY PROVIDE ACCEPTANCE AND AN AVALABLE BED HE WILL BE TRANSFERED REQUESTED. STATES THAT HE HAS NOT HAD A CONFERSATION WITH A DOCTOR IN 4 DAYS. AND WILL GO TO ADMINISTRATION IF HE HAS TOO. STATED THAT THE DR IS ROUNDING ON EVERY PATIENT AND CM WILL PROVIDE THE DR WITH HIS NUMBER. CM ATTEMPT TO PROVIDE REASSURANCE. PROVIDED DR DAY WITH A PHONE NUMBER TO REACH ArielFOR UPDATE. WHO STATES HE WILL SPEAK WITH THE FAMILY. LUISA IQBAL MSN,RN,CM DCP- Discharge Planning Updated by [id number]: Luisa Iqbal on 12/30/19 3:[address] Patient Name: DOMINIC PERALTA Admission Status: ER Accout number: [id number] Admission Date: 12-24-2019 : 1950 Admission Diagnosis:COVID-19 Attending: LISSETTE MCCOLLUM Current LOS: 6 Anticipated DC Date: Planned Disposition: Primary Insurance: MEDICARE A & B Discharge Planning Comments: Spoke with Luisa El CM who states she spoke with the family and they have provided authorization to send referrals to any facility that will accept pt with COVID. EMIL sent referrals to clinical liasons Regina for [facility], and Kimberly for [facility], and Caroline for [facility]. CM will continue to assist in dc planning/needs. Backside Grinder: Luisa Iqbal DCP- Discharge Planning Updated by [email or web address]: Luisa Iqbal on 12/30/19 11:[address] Patient Name: DOMINIC PERALTA Admission Status: ER Accout number: [id number] Admission Date: 12-24-2019 : 1950 Admission Diagnosis:COVID-19 Attending: LISSETTE MCCOLLUM Current LOS: 6 Anticipated DC Date: Planned Disposition: Primary Insurance: MEDICARE A & B Discharge Planning Comments: EMIL spoke with Regina from [facility] who states they are not able to accept the patient into that facility. States there is a facility in [place] who is accepting Covid positive patients at this time. CM will have Luisa CRAWFORD MGR to relay that that information to the family. Luisa Iqbal Backside Grinder: Luisa Iqbal DCP- Discharge Planning Updated by [id number]: Luisa Iqbal on 12/30/19 8:[address] Late Entry assessment competed at 1530 12/29/19 CM received a call from Hui at the access team at [facility] with a determination that they are unable to accept the patient because it is a lateral transfer. Hui states she has received several calls about the transfer and [facility] is unable to accept the patient, and the facility would prefer not to receive any more calls regarding this patient unless his condition deteriorates. Emil spoke with Dr. Day regarding the determination. Dr. Day stated he would call the family and update. Luisa Iqbla DCP- Discharge Planning Updated by [id number]: Luisa Iqbal on 12/29/19 1:[address] CM CALLED HUI AT [facility] AT [phone] ABOUT PENDING TRANSFER. SHE STATED THAT SHE HAS NOT RECIEVED THE FAX. CONFIRMED FAX NUMBER OF [phone]. SHE STATES SHE IS NOT ABLE TO RECIEVE ELECTRONIC FAXES AT THIS TIME. CM REFAXED FACE SHEET TO [phone]. CM MANUALLY FAXED CLINICALS. PROVIDED CM DIRECT LINE, AND THE NURSES STATION NUMBER IF A BED OPEN UP. LUISA IQBAL DCP- Discharge Planning Updated by [id number]: Luisa Iqbal on 12/29/19 7:[address] Patient Name: DOMINIC PERALTA Encounter No: [id number] : 1950 Primary Insurance: MEDICARE A & B Anticipated DC Date: Planned Disposition: External Planned Provider: : DCP follow-up note: CM was asked to called Pt daughter Jessica at [phone]. Cm called Jessica who was very upset. Jessica began yelling as soon as CM initiated conversation. Jessica states that her father is not being cared for. States since this hospital is not able to provide PT she fears her father will decline at a rapid rate. She demands that CM call [facility] and get him transferred to a higher level of care. CM called greenhouse instructor for update then called [facility] transfer team at [phone] and spoke to Keely CRAFT. CM provided clinical representation, and Keely states she will call CM for bed availability. CM will call pt family for updates as they arise. Case management will follow and assist as needed. Luisa Iqbal DCP- Discharge Planning Updated by [id number]: Ariel Strange on 12/28/19 3:[address] Patient Name: DOMINIC PERALTA Encounter No: [id number] : 1950 Primary Insurance: MEDICARE A & B Anticipated DC Date: Planned Disposition: External Planned Provider: : DCP follow-up note: TC to Regina. Regina states that she received fax and will contact us with placement if possible. Will continue to follow Ariel Strange DCP- Discharge Planning Updated by [id number]: Ariel Strange on 12/28/19 1:[address] Patient Name: DOMINIC PERALTA Encounter No: [id number] : 1950 Primary Insurance: MEDICARE A & B Anticipated DC Date: Planned Disposition: External Planned Provider: : DCP follow-up note: Spoke with Regina Perry who coordinates with [facility]. Regina states that the patient should be able to transfer to [facility] and has reviewed previous clinicals sent. Will traditionally fax latest progress notes and medication list per request via. Will continue to follow. Ariel Strange DCP- Discharge Planning Updated by [id number]: Luisa Iqbal on 12/27/19 5:[address] Cm spoke with Regina from [facility] who states they are looking at the clinicals. They will get back with CM with determination. Luisa Iqbal DCP- Discharge Planning Updated by [id number]: Luisa Iqbal on 12/26/19 7:[address] Patient Name: DOMINIC PERALTA Admission Status: ER Accout number: [id number] Admission Date: 12-24-2019 : 1950 Admission Diagnosis:COVID-19 Attending: LISSETTE MCCOLLUM Current LOS: 2 Anticipated DC Date: Planned Disposition: Primary Insurance: MEDICARE A & B Discharge Planning Comments: CM called pt dtr Reene at [phone] about dc planning. CM educated patient on the CM role and verbal consent given by patient to complete assessment. CM verified patient's address, phone number, and emergency contact phone numbers. Patient lives at home with his in a basement apartment at their sons house. Renee voiced concerns over her father's Parkinson's disease and the increased weakness he has. States her and her siblings may not be able to care for him upon dc. Renee mad a 3 way call with CM and her siblings so that each family member can speak about concerns. CM spoke to family about SNF, HH, PT, and private CG. Each states that their parents do not have enough money to afford private duty care. And they all need to work and are unable to provide 24 hour care. CM provided details of finding a SNF with [facility]. They stated they will think about a SNF and return a call to . Later this afternoon CM received a call from Renee stating the family is in agreement for SNF. Renee stated she called [facility] who will look at the clinical information. CM faxed clinicals to [facility] as requested. CM will continue to follow and will assist as needed with dc plans/needs. Backside Grinder: Luisa Iqbal DCP- Discharge Planning Updated by [id number]: Liusa Iqbal on 12/26/19 7:[address] LATE ENTRY. CONVERSATION OCCURED 12/25/19 CM RECIEVED A CALL FROM PT DAUGHTER RENEE ([phone]) WHO DEMANDS HER MOTHER AND FATHER BE SENT TO [facility] FOR A HIGHER LEVEL OF CARE. SHE STATES THEY ARE A LEVEL OE TREATMENT CENTER AND THEY HAVE ACCESS TO [facility] IF HER FAMILY REQUIRES IT. CM EDUCATED RENEE ON WHAT CONSTITUTES A HIGHER LEVEL OF CARE. SHE STATES SHE HAS DR AGARWAL WHO WILL ACCEPT HER AND WANTS THE AMBULANCE RIDE COVERED BY INSURANCE SINCE IT IS A HIGHER LEVEL OF CARE. CM REINFORCED THAT IT IS A LATERAL TRANSFER. THE SERVICES PROVIDED TO HER PARENTS ARE THE SAME IT WOULD BE AT [facility], AND INSURANCE WILL NOT PAY FOR TRANSPORT. 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 SHE STATES SHE IS THEIR ONLY ADVOCATE IS TERRIFIED FOR THEIR LIVES. CM PROVIDED INSTRUCTION TO WHAT [facility] IS DOING CLINICALLY FOR HER FAMILY. CM ALLOWED RENEE TO VENT HER CONCERNS, WHILE PROVIDING EMOTIONAL SUPPORT. RENEE VOICED UNDERSTANDING AND WAS THANKFUL FOR THE INFORMATION PROVIDED. SHE REQUESTS THAT THE DR CALL HER FOR UPDATES. CM SPOKE WITH THE NURSE PROVIDING CARE FOR THE PATIENT AND RELAYED THE REQUEST. THE NURSES STATES THAT DR MEJIA WILL CALL AFTER HE ROUNDS ON THE PATIENT TODAY. CM TO CONTINUE ASSISTING NEEDED WITH DC PLANS/NEEDS LUISA IQBAL Coverage Notice Reviewer: [id number] - Luisa Iqbal Notice Issued Date-Time: 12/26/2019 9:00 Notice Type: Patient Choice Letter Notice Delivered To: Family Member Relationship to Patient: Daughter Power Plant Assistant Name: Renee Delivery Method: PHONE - Phone Jana Days: Prior Verbal Notification: Yes Recipient Understood Notice: Yes Recipient Signature: Med Rec Note Co-signed by Attending: Coverage Notice Comment: [facility] Reviewer: [id number] - Luisa Iqbal Notice Issued Date-Time: 12/30/2019 16:03 Notice Type: Patient Choice Letter Notice Delivered To: Family Member Relationship to Patient: Son in Law Power Plant Assistant Name: Ariel Delivery Method: PHONE - Phone Jana Days: Prior Verbal Notification: Yes Recipient Understood Notice: Yes Recipient Signature: Med Rec Note Co-signed by Attending: Coverage Notice Comment: any SNF. states it is CM job to find a facility that accepts covid. Reviewer: [id number] Rajinder Marshall Notice Issued Date-Time: 12/30/2019 16:10 Notice Type: Patient Choice Letter Notice Delivered To: Other Relationship to Patient: Daughter Power Plant Assistant Name: Jessica Delivery Method: MAIL - Mail Jana Days: Prior Verbal Notification: Recipient Understood Notice: Recipient Signature: Med Rec Note Co-signed by Attending: Coverage Notice Comment: "Anywhere" SNF [facility] Reviewer: [id number] Rajinder Iqbal Notice Issued Date-Time: 01/03/2020 9:00 Notice Type: Patient Choice Letter Notice Delivered To: Family Member Relationship to Patient: Daughter Power Plant Assistant Name: Renee Delivery Method: PHONE - Phone Jana Days: Prior Verbal Notification: Yes Recipient Understood Notice: Yes Recipient Signature: Med Rec Note Co-signed by Attending: Coverage Notice Comment: IP rehab at [facility] Reviewer: [id number] Rajinder Iqbal Notice Issued Date-Time: 01/03/2020 10:30 Notice Type: Patient Choice Letter Notice Delivered To: Family Member Relationship to Patient: Power Plant Assistant Name: Delivery Method: PHONE - Phone Jana Days: Prior Verbal Notification: Yes Recipient Understood Notice: Yes Recipient Signature: Med Rec Note Co-signed by Attending: Coverage Notice Comment: received call from Whitney to send referral to [facility] re[facility] Last DP export: 01/04/20 1:25 p Patient Name: DOMINIC PERALTA Page [phone] at 1706 All edits/amendments must be made on the electronic document DICTATION DATE: 01/04/20 1705 LINEN SORTER: RODNEY 01/04/20 170 RPT#: [id number] DC DATE: STATUS: ADM IN [facility] [address] [place] [address] END OF REPORT
--- NOTE | 2020-01-05 08:31 | MORECARE ---
CASE MANAGEMENT DISCHARGE SUMMARY PATIENT: DOMINIC PERALTA UNIT: [id number] ADM DATE: 12/24/19 AGE: 69 : 46 SEX: M ROOM/BED: D.2139 AUTHOR: CÉSAR,DOC PHYSICIAN: REFERRING PHYSICIAN: LISSETTE MCCOLLUM MD DATE OF SERVICE: 01/05/20 Discharge Plan Patient Name: DOMINIC PERALTA Facility: [facility]:[place] : 1950 Planned Disposition: Anticipated Discharge Date: Discharge Date: 01/04/2020 Expected LOS: Initial Reviewer: [email or web address] Initial Review Date: 12/24/2019 Generated: 01/05/20 9:30 am Comments DCP- Discharge Planning Updated by [id number]: Luisa Marshall on 01/04/20 4:[address] Late entry: 14:50 CM received call from Vicky at [facility]. States they have accepted patient. He will go to room 317. Nurse to call report to [phone]. [facility] has called ambulance for transport. CM informed nurse Lopez of room number, and number to call report to. CM called daughter, Renee, and son-in-law, Ariel with updated status of [facility]. Ariel asked CM to have patient or nurse check his home medications to see if he was about to run out of any. Both verbalized satisfaction with discharge planning. EMIL informed nurse Jessica of request to check home meds and let family know if patient was about to run out of any. Jessica verbalized understanding. DCP- Discharge Planning Updated by [id number]: Luisa Marshall on 01/04/20 1:[address] CM faxed DC med list, MAR, and DC Summary to [facility] as requested. Awaiting call from [facility] admissions office with bed number. DCP- Discharge Planning Updated by [email or web address]: Luisa Marshall on 01/04/20 12:[address] Late entry: 09:30 CM received call from Vicky at [facility] requesting clinical update. Faxed records as requested. 10:15 CM received call from Angela at [facility] stating patient's daughter, Renee, had requested CM to send referral to [facility] for SNF. CM informed Angela that I expected patient to discharge to [facility] today. CM told Angela that I would call daughter, Renee, to update her on status of DC to [facility] and see if she still wants me to fax referral to [facility]. CM called and spoke with daughter, Renee, informed her that [facility] are potentially planning to accept patient today. I just faxed updated records to them. Asked Renee if she still wanted me to fax records to [facility] as instructed by Angela. Renee told CM that she never asked for the referral to be sent to [facility], stated it must have been her sister. Renee told CM not to fax referral to [facility], will wait for determination from [facility]. CM called Ariel, son-in-law, with update. Ariel verbalized understanding and satisfaction with discharge planning. 13:20 CM received call from Vicky at [facility] stating they have accepted the patient for admission today. Just need to fax MAR, DC med rec, and DC summary then admissions will get bed assigned and call CM back with info. CM informed Dr. Huston. CM called daughterRenee, and son-in-law, Ariel about status of discharge. After rehab receives DC Summary and Med rec patient will be assigned a bed number, then rehab will call CM with information for discharge today to [facility]. Ariel verbalized understanding and satisfaction with discharge planning. CM had to leave voice message on Renee's phone. DCP- Discharge Planning Updated by [id number]: Luisa Iqbal on 01/03/20 1:[address] CM spoke with Dr Huston about pt family requests for additional covid test. Dr. Huston stated he can not authorize additional covid testing. CM faxed completed PASR to [employer]. Luisa Iqbal DCP- Discharge Planning Updated by [email or web address]: Luisa Iqbal on 01/03/20 11:[address] CM received call from Dalia at [facility]. Dalia states since pt is Covid positive the facility will require 2 negative covid tests prior to e admitted. Cm called Whitney to update status. Whitney stated to prepare a PASR for [facility], and sent updated medication list. Luisa Iqbal DCP- Discharge Planning Updated by [id number]: Luisa Iqbal on 01/03/20 10:[address] Late Entry 1030 CM received call from Whitney in stating the patient family requests referral to IP rehab. CM called Vicky at [phone] and faxed referral. CM will wait for determination. Luisa HO,RN DCP- Discharge Planning Updated by [id number]: Luisa Iqbal on 01/03/20 9:[address] CM received call from Whitney in . Whitney stated she is on the phone with the pts son in law who is requesting dc disposition. Provided updates. Luisa Iqbal DCP- Discharge Planning Updated by [email or web address]: Luisa Iqbal on 01/03/20 9:[address] CM called [facility] rehab at [phone] and left a message with Vciky about referral Cm faxed clinical to [phone] and will await return call. Luisa HO,RN,CM DCP- Discharge Planning Updated by [email or web address]: Luisa Iqbal on 01/03/20 8:[address] CM attempted to call [facility] at [phone] for referral. CM unable to reach at this time. Will continue to reach out per request. Luisa Iqbal DCP- Discharge Planning Updated by [id number]: Luisa Iqbal on 01/03/20 8:[address] Received call from Luisa Marshall stating she received a call from pt daughter Sarah requesting a referral to IP rehab at [facility], and the patient be retested for covid. CM spoke with Arvin FISH about the covi test. CM faxed referral per request to [facility]. Luisa HO,RN,CM DCP- Discharge Planning Updated by [id number]: Luisa Marshall on 12/30/19 4:[address] Late entry: 1310 CM received call from Sarah Chavez with [facility] stating she had received a call from patient's daughter about some concerns she had. CM gave report to Sarah about patient's status per today's pulmonology progress note and family medicine progress note. CM answered Sarah's questions about status of discharge planning. Explained that [facility] and [facility] have both declined patient, need to know from family what other SNF they would allow CM to refer to. 15:34 CM received second call from Sarah Chavez with [facility] stating she had spoken with the family again and they told her that they weren't going to tell CM where to send the referral to, "that's their job". Sarah instructed CM to send SNF referral anywhere. 16:[address] Day who informed CM that he spoke with daughter, Jessica, who stated she spoke with someone at [facility] and she wants CM to send referral there. Stated they were going to accept patient with anticipated DC Thursday. CM called [facility]. Spoke with Cassie about referral. Faxed records as requested. Awaiting determination. DCP- Discharge Planning Updated by [id number]: Luisa Iqbal on 12/30/19 3:[address] CM RECIEVED CALL FROM ARIEL ALFARO. DOMINIC STATED CM, DR, NURSING, AND ADMINITISTRATION HAS DONE NOTHING FOR HIS FATHER. STATED HE HAD TO YELL AND SCREAM TO GET HIS MOTHER TRANSFERED, AND HE IS NOT AFRAID OF COMMING TO THE HOSPITAL TO GET HIS FATHER TRANSFERED WELL. EMIL STATED HOW [facility] WAS NOTIFIED THIS AM, AND WHAT WAS DONE TO GET PT TRANSFERED. TODAY. DOMINIC CONTINUEW TO YELL AT STATING HE DOES NOT UNDERSTAND HOW CM CAN DO NOTHING FOR HIS FATHER. STATES HE HAS A DR WHO HAS ACCEPTED HIM, BUT THE HOSPITAL WILL NOT TRANSFER HIM. CM STATES SHE WILL CONTINUE TO REACH OUT TO [facility] AND SOON THEY PROVIDE ACCEPTANCE AND AN AVALABLE BED HE WILL BE TRANSFERED REQUESTED. STATES THAT HE HAS NOT HAD A CONFERSATION WITH A DOCTOR IN 4 DAYS. AND WILL GO TO ADMINISTRATION IF HE HAS TOO. STATED THAT THE DR IS ROUNDING ON EVERY PATIENT AND CM WILL PROVIDE THE DR WITH HIS NUMBER. CM ATTEMPT TO PROVIDE REASSURANCE. CM PROVIDED DR DAY WITH A PHONE NUMBER TO REACH ArielFOR UPDATE. WHO STATES HE WILL SPEAK WITH THE FAMILY. LUISA IQBAL MSN,RN,CM DCP- Discharge Planning Updated by [id number]: Luisa Ibqal on 12/30/19 3:[address] Patient Name: DOMINIC PERALTA Admission Status: ER Accout number: [id number] Admission Date: 12-24-2019 : 1950 Admission Diagnosis:COVID-19 Attending: LISSETTE MCCOLLUM Current LOS: 6 Anticipated DC Date: Planned Disposition: Primary Insurance: MEDICARE A & B Discharge Planning Comments: Spoke with Luisa El CM who states she spoke with the family and they have provided authorization to send referrals to any facility that will accept pt with COVID. CM sent referrals to clinical liasons Regina for [facility] re[facility], and Kimberly for [facility], and Caroline for [facility]. CM will continue to assist in dc planning/needs. Counselor At Law: Luisa Iqbal DCP- Discharge Planning Updated by [id number]: Luisa Iqbal on 12/30/19 11:[address] Patient Name: DOMINIC PERALTA Admission Status: ER Accout number: [id number] Admission Date: 12-24-2019 : 1950 Admission Diagnosis:COVID-19 Attending: LISSETTE MCCOLLUM Current LOS: 6 Anticipated DC Date: Planned Disposition: Primary Insurance: MEDICARE A & B Discharge Planning Comments: EMIL spoke with Regina from [facility] who states they are not able to accept the patient into that facility. States there is a facility in [place] who is accepting Covid positive patients at this time. CM will have Luisa CRAWFORD MGR to relay that that information to the family. Luisa Iqbal Counselor At Law: Luisa Iqbal DCP- Discharge Planning Updated by [id number]: Luisa Iqbal on 12/30/19 8:[address] Late Entry assessment competed at 1530 12/29/19 CM received a call from Hui at the access team at [facility] with a determination that they are unable to accept the patient because it is a lateral transfer. Hui states she has received several calls about the transfer and [facility] is unable to accept the patient, and the facility would prefer not to receive any more calls regarding this patient unless his condition deteriorates. Emil spoke with Dr. Day regarding the determination. Dr. Day stated he would call the family and update. Luisa Iqbal DCP- Discharge Planning Updated by [id number]: Luisa Iqbal on 12/29/19 1:[address] [facility] [phone] ABOUT PENDING TRANSFER. SHE STATED THAT SHE HAS NOT RECIEVED THE FAX. CONFIRMED FAX NUMBER OF [phone]. SHE STATES SHE IS NOT ABLE TO RECIEVE ELECTRONIC FAXES AT THIS TIME. CM REFAXED FACE SHEET TO [phone]. CM MANUALLY FAXED CLINICALS. PROVIDED CM DIRECT LINE, AND THE NURSES STATION NUMBER IF A BED OPEN UP. LUISA IQBAL DCP- Discharge Planning Updated by [id number]: Luisa Iqbal on 12/29/19 7:[address] Patient Name: DOMINIC PERALTA Encounter No: [id number] : 1950 Primary Insurance: MEDICARE A & B Anticipated DC Date: Planned Disposition: External Planned Provider: : DCP follow-up note: CM was asked to called Pt daughter Jessica at [phone]. Cm called Jessica who was very upset. Jessica began yelling as soon as CM initiated conversation. Jessica states that her father is not being cared for. States since this hospital is not able to provide PT she fears her father will decline at a rapid rate. She demands that CM call [facility] and get him transferred to a higher level of care. CM called data warehouse developer for update then called [facility] transfer team at [phone] and spoke to Keely CRAFT. CM provided clinical representation, and Keely states she will call CM for bed availability. CM will call pt family for updates as they arise. Case management will follow and assist as needed. Luisa Iqbal DCP- Discharge Planning Updated by [id number]: Ariel Strange on 12/28/19 3:[address] Patient Name: DOMINIC PERALTA Encounter No: [id number] : 1950 Primary Insurance: MEDICARE A & B Anticipated DC Date: Planned Disposition: External Planned Provider: : DCP follow-up note: TC to Regina. Regina states that she received fax and will contact us with placement if possible. Will continue to follow Ariel Strange DCP- Discharge Planning Updated by [id number]: Ariel Strange on 12/28/19 1:[address] Patient Name: DOMINIC PERALTA Encounter No: [id number] : 1950 Primary Insurance: MEDICARE A & B Anticipated DC Date: Planned Disposition: External Planned Provider: : DCP follow-up note: Spoke with Regina Perry who coordinates with [facility]. Regina states that the patient should be able to transfer to [facility] and has reviewed previous clinicals sent. Will traditionally fax latest progress notes and medication list per request via. Will continue to follow. Ariel Strange DCP- Discharge Planning Updated by [id number]: Luisa Iqbal on 12/27/19 5:[address] Cm spoke with Regina from [facility] who states they are looking at the clinicals. They will get back with CM with determination. Luisa Iqbal DCP- Discharge Planning Updated by [id number]: Luisa Iqbal on 12/26/19 7:[address] Patient Name: DOMINIC PERALTA Admission Status: ER Accout number: [id number] Admission Date: 12-24-2019 : 1950 Admission Diagnosis:COVID-19 Attending: LISSETTE MCCOLLUM Current LOS: 2 Anticipated DC Date: Planned Disposition: Primary Insurance: MEDICARE A & B Discharge Planning Comments: CM called pt dtr Renee at [phone] about dc planning. CM educated patient on the CM role and verbal consent given by patient to complete assessment. CM verified patient's address, phone number, and emergency contact phone numbers. Patient lives at home with his in a basement apartment at their sons house. Renee voiced concerns over her father's Parkinson's disease and the increased weakness he has. States her and her siblings may not be able to care for him upon dc. Renee mad a 3 way call with CM and her siblings so that each family member can speak about concerns. CM spoke to family about SNF, HH, PT, and private CG. Each states that their parents do not have enough money to afford private duty care. And they all need to work and are unable to provide 24 hour care. CM provided details of finding a SNF with [facility]. They stated they will think about a SNF and return a call to CM. Later this afternoon CM received a call from Renee stating the family is in agreement for SNF. Renee stated she called [facility] who will look at the clinical information. CM faxed clinicals to [facility] as requested. CM will continue to follow and will assist as needed with dc plans/needs. Counselor At Law: Luisa Iqbal DCP- Discharge Planning Updated by [id number]: Luisa Iqbal on 12/26/19 7:[address] LATE ENTRY. CONVERSATION OCCURED 12/25/19 CM RECIEVED A CALL FROM PT DAUGHTER RENEE ([phone]) WHO DEMANDS HER MOTHER AND FATHER BE SENT TO [facility] FOR A HIGHER LEVEL OF CARE. SHE STATES THEY ARE A [facility] AND THEY HAVE ACCESS TO [facility] IF HER FAMILY REQUIRES IT. CM EDUCATED RENEE ON WHAT CONSTITUTES A HIGHER LEVEL OF CARE. SHE STATES SHE HAS DR AGARWAL WHO WILL ACCEPT HER AND WANTS THE AMBULANCE RIDE COVERED BY INSURANCE SINCE IT IS A HIGHER LEVEL OF CARE. CM REINFORCED THAT IT IS A LATERAL TRANSFER. THE SERVICES PROVIDED TO HER PARENTS ARE THE SAME IT WOULD BE AT [facility], AND INSURANCE WILL NOT PAY FOR TRANSPORT. 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 SHE STATES SHE IS THEIR ONLY ADVOCATE IS TERRIFIED FOR THEIR LIVES. CM PROVIDED INSTRUCTION TO WHAT [facility] IS DOING CLINICALLY FOR HER FAMILY. CM ALLOWED RENEE TO VENT HER CONCERNS, WHILE PROVIDING EMOTIONAL SUPPORT. RENEE VOICED UNDERSTANDING AND WAS THANKFUL FOR THE INFORMATION PROVIDED. SHE REQUESTS THAT THE DR CALL HER FOR UPDATES. EMIL SPOKE WITH THE NURSE PROVIDING CARE FOR THE PATIENT AND RELAYED THE REQUEST. THE NURSES STATES THAT DR MEJIA WILL CALL AFTER HE ROUNDS ON THE PATIENT TODAY. CM TO CONTINUE ASSISTING NEEDED WITH DC PLANS/NEEDS LUISA IQBAL Coverage Notice Reviewer: [id number] - Luisa Iqbal Notice Issued Date-Time: 12/26/2019 9:00 Notice Type: Patient Choice Letter Notice Delivered To: Family Member Relationship to Patient: Daughter Military Professional Name: Renee Delivery Method: PHONE - Phone Jana Days: Prior Verbal Notification: Yes Recipient Understood Notice: Yes Recipient Signature: Med Rec Note Co-signed by Attending: Coverage Notice Comment: [facility] Reviewer: [id number] Rajinder Iqbal Notice Issued Date-Time: 12/30/2019 16:03 Notice Type: Patient Choice Letter Notice Delivered To: Family Member Relationship to Patient: Son in Law Military Professional Name: Ariel Delivery Method: PHONE - Phone Jana Days: Prior Verbal Notification: Yes Recipient Understood Notice: Yes Recipient Signature: Med Rec Note Co-signed by Attending: Coverage Notice Comment: any SNF. states it is CM job to find a facility that accepts covid. Reviewer: [id number] Rajinder Marshall Notice Issued Date-Time: 12/30/2019 16:10 Notice Type: Patient Choice Letter Notice Delivered To: Other Relationship to Patient: Daughter Military Professional Name: Jessica Delivery Method: MAIL - Mail Jana Days: Prior Verbal Notification: Recipient Understood Notice: Recipient Signature: Med Rec Note Co-signed by Attending: Coverage Notice Comment: "Anywhere" SNF [facility] Reviewer: [id number] Rajinder Iqbal Notice Issued Date-Time: 01/03/2020 9:00 Notice Type: Patient Choice Letter Notice Delivered To: Family Member Relationship to Patient: Daughter Military Professional Name: Renee Delivery Method: PHONE - Phone Jana Days: Prior Verbal Notification: Yes Recipient Understood Notice: Yes Recipient Signature: Med Rec Note Co-signed by Attending: Coverage Notice Comment: IP rehab at [facility] Reviewer: [id number] Rajinder Iqbal Notice Issued Date-Time: 01/03/2020 10:30 Notice Type: Patient Choice Letter Notice Delivered To: Family Member Relationship to Patient: Military Professional Name: Delivery Method: PHONE - Phone Jana Days: Prior Verbal Notification: Yes Recipient Understood Notice: Yes Recipient Signature: Med Rec Note Co-signed by Attending: Coverage Notice Comment: received call from Whitney to send referral to IP rehab Last DP export: 01/04/20 4:06 p Patient Name: DOMINIC PERALTA Page [id number] at 0831 All edits/amendments must be made on the electronic document DICTATION DATE: 01/05/20829 ADDICTIONS THERAPIST: RODNEY 01/05/20829 RPT#: [id number] DC DATE:01/04/20 STATUS: DIS IN [facility] [address] [place] [address] END OF REPORT
== END 2020-01-04 17:02 | DRG 177 ==
LOC: D.ER 09:47 → D.M2 11:38
PROVIDERS: Family Medicine; ADMIT Family Medicine; ATTEND Family Medicine
PROC: XW033E5 Introduction of Remdesivir Anti-infective into Peripheral Vein, Percutaneous Approach, New Technology Group 5 (ICD-10-PCS; principal; 2019-12-27)
DX: U07.1 COVID-19 (principal); J12.89 Other viral pneumonia; J96.01 Acute respiratory failure with hypoxia; I21.4 Non-ST elevation (NSTEMI) myocardial infarction; E11.65 Type 2 diabetes mellitus with hyperglycemia; I10 Essential (primary) hypertension; I25.10 Atherosclerotic heart disease of native coronary artery without angina pectoris; G20 Parkinson's disease; D32.9 Benign neoplasm of meninges, unspecified; E66.9 Obesity, unspecified; Z68.37 Body mass index [BMI] 37.0-37.9, adult; R51 Headache; F32.9 Major depressive disorder, single episode, unspecified